=== PATIENT | male | born 1965 | race Caucasian/White ===

== ENCOUNTER → 2019-12-04 13:53 | Outpatient (BNVA) | payer MEDICARE, MEDICAID, SELFPAY | PROVIDERS: PCP Internal Medicine; Referring Provider Internal Medicine; Visit Provider Anesthesiology | DX: G89.4 Chronic pain syndrome (principal); M96.1 Postlaminectomy syndrome, not elsewhere classified; Z79.891 Long term (current) use of opiate analgesic; Z98.1 Arthrodesis status | CPT/HCPCS: 99214 ==

== ENCOUNTER → 2020-01-09 15:25 | Outpatient (BNVA) | payer MEDICARE, MEDICAID, SELFPAY | PROVIDERS: PCP Internal Medicine; Referring Provider Internal Medicine; Visit Provider Anesthesiology | DX: G89.4 Chronic pain syndrome (principal); M96.1 Postlaminectomy syndrome, not elsewhere classified; Z79.891 Long term (current) use of opiate analgesic | CPT/HCPCS: 99212 ==

== ENCOUNTER → 2020-01-29 13:32 | Outpatient (BNVA) | payer MEDICARE, MEDICAID, SELFPAY | PROVIDERS: PCP Internal Medicine; Referring Provider Internal Medicine; Visit Provider Anesthesiology | DX: M96.1 Postlaminectomy syndrome, not elsewhere classified (principal); G89.4 Chronic pain syndrome; F11.90 Opioid use, unspecified, uncomplicated | CPT/HCPCS: Q3014 ==

== ENCOUNTER → 2020-02-19 13:38 | Outpatient (BNVA) | payer MEDICARE, MEDICAID, SELFPAY | PROVIDERS: PCP Internal Medicine; Visit Provider Anesthesiology | DX: M96.1 Postlaminectomy syndrome, not elsewhere classified (principal); G89.4 Chronic pain syndrome; F11.90 Opioid use, unspecified, uncomplicated | CPT/HCPCS: 99212 ==

== ENCOUNTER → 2020-03-19 14:09 | Outpatient (BNVA) | payer MEDICARE, MEDICAID, SELFPAY | PROVIDERS: PCP Internal Medicine; Visit Provider Anesthesiology | DX: G89.4 Chronic pain syndrome (principal); M96.1 Postlaminectomy syndrome, not elsewhere classified; F11.90 Opioid use, unspecified, uncomplicated; E11.9 Type 2 diabetes mellitus without complications; Z96.41 Presence of insulin pump (external) (internal) | CPT/HCPCS: 99212 ==

== ENCOUNTER → 2020-04-27 17:05 | Outpatient (BNVA) | payer MEDICARE, MEDICAID, SELFPAY | PROVIDERS: PCP Internal Medicine; Visit Provider Anesthesiology | DX: M96.1 Postlaminectomy syndrome, not elsewhere classified (principal); F11.90 Opioid use, unspecified, uncomplicated; G89.4 Chronic pain syndrome | CPT/HCPCS: Q3014 ==

== ENCOUNTER 2020-06-05 07:30 | Day surgery (SDC) | payer MEDICARE, MEDICAID, SELFPAY ==
--- NOTE | 2020-06-04 09:28 | HO.ANESPROP2 ---
Documented by User: Miri Subramanian 06/04/20 09:36 HPI - Anesthesia Eval Consult details Narrative: 54yo M for Intrathecal Drug Delivery Implant PMFSH Active Problems Active Problems: All Active Problems (Updated 04/27/20 @ 17:16 by Gomez Ferrell MD) Chronic, continuous use of opioids (Acute) Chronic pain syndrome (Acute) Past Medical History Medical History Chronic pain syndrome Chronic, continuous use of opioids Cubital tunnel syndrome on right Depression Diabetic neuropathy Fusion of lumbar spine HLD (hyperlipidemia) Hypothyroid Left carpal tunnel syndrome Lumbar post-laminectomy syndrome Type 1 diabetes mellitus Surgical History Surgical History H/O decompression of ulnar nerve H/O exploratory laparotomy H/O parathyroidectomy S/P lumbar fusion Social History Social History Smoking Status: Never smoker Use of substances other than those prescribed or required for medical reasons: No Advance Directives: Yes Advance Directives on File: Yes Advance Directives Date on File: 06/05/20 Meds Allergies Allergy/AdvReac Type Severity Reaction Status Date / Time onions Allergy Severe Vomiting Uncoded 06/05/20 08:19 Home Medications Medication Instructions Recorded Confirmed Last Taken Type blood sugar diagnostic #10 ea 11/30/19 04/27/20 Unknown History insulin aspart U-100 100 unit/mL 0 - 110 unit SUBCUT DAILY 11/30/19 04/27/20 Unknown History subcutaneous solution levothyroxine 200 mcg tablet 0 mcg PO 11/30/19 04/27/20 Unknown History pravastatin 20 mg tablet 20 mg PO DAILY 11/30/19 04/27/20 Unknown History pregabalin 150 mg capsule 150 mg PO TID 11/30/19 04/27/20 Unknown History tizanidine 4 mg tablet 4 mg PO Q8H 11/30/19 04/27/20 Unknown History aspirin 81 mg tablet,delayed 81 mg PO DAILY 12/04/19 04/27/20 05/28/20 20:00 History release lisinopril 1 tab PO DAILY 06/05/20 06/05/20 06/05/20 05:15 History Exam Exam Date and Time: June 04, [id number] Assessment and Plan Assessment Anesthesia Assessment: Chart Reviewed Documented by User: Lucien Conn MD 06/05/20 10:04 [facility] Past Medical History Medical History Chronic pain syndrome Chronic, continuous use of opioids Cubital tunnel syndrome on right Depression Diabetic neuropathy Fusion of lumbar spine HLD (hyperlipidemia) Hypothyroid Left carpal tunnel syndrome Lumbar post-laminectomy syndrome Type 1 diabetes mellitus Surgical History Surgical History H/O decompression of ulnar nerve H/O exploratory laparotomy H/O parathyroidectomy S/P lumbar fusion Social History Social History Smoking Status: Never smoker Use of substances other than those prescribed or required for medical reasons: No Advance Directives: Yes Advance Directives on File: Yes Advance Directives Date on File: 06/05/20 Meds Allergies Allergy/AdvReac Type Severity Reaction Status Date / Time onions Allergy Severe Vomiting Uncoded 06/05/20 08:19 Home Medications Medication Instructions Recorded Confirmed Last Taken Type blood sugar diagnostic #10 ea 11/30/19 04/27/20 Unknown History insulin aspart U-100 100 unit/mL 0 - 110 unit SUBCUT DAILY 11/30/19 04/27/20 Unknown History subcutaneous solution levothyroxine 200 mcg tablet 0 mcg PO 11/30/19 04/27/20 Unknown History pravastatin 20 mg tablet 20 mg PO DAILY 11/30/19 04/27/20 Unknown History pregabalin 150 mg capsule 150 mg PO TID 11/30/19 04/27/20 Unknown History tizanidine 4 mg tablet 4 mg PO Q8H 11/30/19 04/27/20 Unknown History aspirin 81 mg tablet,delayed 81 mg PO DAILY 12/04/19 04/27/20 05/28/20 20:00 History release lisinopril 1 tab PO DAILY 06/05/20 06/05/20 06/05/20 05:15 History Exam Airway Mallampati Class: II TM Dist: >3cm Neck ROM: Full Loose/Missing/Broken Teeth: Yes (All upper and lower teeth are broken, awaiting surgery, none lose per report), Upper and Lower Heart: RRR Lungs: NL Assessment and Plan Assessment Anesthesia Assessment: Anesthesia Plan Discussed Final Anesthetic Review NPO: Yes ASA Class: III Final Preanesthetic Review: No Changes in Pt Med Stat, Meds/Allgs Chart Reviewed, Consent Obtained/Reviewed and Anes Risks/Benef Reviewed Patient Risk: High Procedure Risk: Low Anesthetic Plan Anesthetic Plan: GA Disposition: Standard PACU
[2020-06-05] VITALS (11 sets, daily range): BP systolic 121–183; BP diastolic 70–94; PULSE 78–98; RESP 12–20; TEMP 36.2–36.6; O2SAT 95–100; BMI 39.9
--- NOTE | ~2020-06-05 | FL_ITS ---
EXAMINATION: XR FLUOROSCOPY WITH IMAGES CLINICAL INFORMATION: Intrathecal drug pump implant COMPARISON: None. TECHNIQUE: Fluoroscopy performed by Dr. Gomez Ferrell. Fluoroscopy time: 0.5 minutes DAP: 10.6 Gycm2 Images: 1 FINDINGS: There is a monitoring lead crossing the lower thorax. Degenerative changes are present thoracolumbar spine. A small spot of artifact overlies thoracolumbar vertebral body, known chronic artifact from the equipment. FL/FL guidance in OR IMPRESSION: Fluoroscopy for pain management procedure.
--- NOTE | 2020-06-05 07:23 | W.PM.OPN ---
Operative Note Operative Note Date of Service: 06/05/20 Narrative: After obtaining informed consent and explaining to the patient risks, benefits and alternatives to treat her pain, the patient was brought up to the operating room where she was positioned supine on the stretcher. [place] [employer] monitors were applied and general anesthesia was induced with endotracheal intubation. After that the patient was transferred to the operating table prone. All pressure points protected. The patient received antibiotic cefazolin 3 g intravenously 30 minutes before incision. Time-out was performed delineating correct site and side of the procedure, name and date of of the patient, risk of fire, need for antibiotic prophylaxis risk of DVT and need for DVT prophylaxis. After that the patient entire back was prepped with chloroprep and draped with full body drape including ioban film. Sterilely drape C-arm was brought over the OR field and square pictures of the L1, L2, L3 vertebrae were demonstrated on the screen. the entrance point for the catheter was chosen as the L1-L2 interspace. In 1/2 cm away to the right paramedian fashion 6.5 cm vertical skin incision was made with #10 scalpel. The incision was widened with the Weitlaner retractor and deepened with electrocautery. Thorough hemostasis was obtained using electrocautery and 3-0 polisorb sutures. the prevertebral fascia was freed from overlaying tissues. After that 100 mm introducer spinal 16 g needle was incerted under x-ray guidance in the projection of the right L3 pedicle. The needle advanced under the x-ray guidance with intemitteny A-P and lateral views toward the spinal canal. When on the lateral view the needle entered the spinal canal the stylet was removed and the clear flow of the CSF was obtain through the needle hub. Intrathecal Ascenda catheter was inserted through the needle and advanced under the x-ray guidance toward the T9 vertebral body projection. The stylet was removed from the catheter and the flow of CSF fluid straw colored and clear was observed coming from the catheter.1-0 Tycron Purse-string suture was applied surrounding the a needle and it was tied. After that the needle was withdrawn with care taken to keep the catheter in place. Anchoring device was dislodged on the catheter and advanced until it met prevertebral fascia. It was engaged on the body of the catheter. Two anchoring Tycron sutures were used to suture left wing of the anchor to prevertebral fascia and 1 anchoring suture was used to stitch in the right wing of anchoring device to prevertebral fascia. After that the thorough irrigation of the wound was performed and wound was packed with vancomycin soaked 4 x 4. Attention then was concentrated on the patient's right buttock. Sterilely draped C-arm was brought over the operative field again and position of the patient's iliac crest on the RIGHT was demonstrated on the screen. Three cm below the projection of the iliac crest to the skin of the local anesthetic bupivacaine mixture with lidocaine 1-1 was injected in the linear horizontal fashion. After that 9.5 cm incision was performed in patient's right buttock alongside the injected line. Thorough hemostasis was obtained using cautery device. After that the wound was widened and made 2.5 cm deep . The wound was extended medially and laterally as well as caudally and cranially to form the space to accommodate the body of the pump. Thorough hemostasis was performed. The wound was irrigated with vancomycin containing normal saline and then tunneling device was used to connect both wounds and dislodged the intrathecal catheter into the side wound. The catheter was trimmed appropriately after that and sutureless connection device was mounted on the catheter. After that sutureless connection device was connected to the pump. Aspiration of the side port of the pump revealed clear flow of CSF. Three 1-0 Tycron sutures were applied in most SUPERIOR MEDIAL AND SUPERIOR LATERAL CORNERS OF THE WOUND as well as most inferior medial corner of the wound. After that the sutures were connected to the bracket is on the body of the pump, intrathecal catheter was gathered behind the body of the pump and pump was dislodged into the wound. After that the anchoring sutures were tied. Thorough irrigation was performed again in both wounds. Thorough hemostasis was verified. 0 polisorb sutures were used to close both wounds, 2-0 suture of the same nature were used to approximate the skin. [place] were applied to the skin line and Bacitracin ointment was applied to the staple lines. Sterile dressing with sterile 4x4s was performed, abdominal binder was applied. Upon completion of the procedure patient was awaken extubated and taken outside of the operating room to recovery room where SHE recovered uneventfully. HE went home without immediate complications.
--- NOTE | 2020-06-05 07:23 | PM.OP ---
Brief Operative Note Date of Service: 06/05/20 Pre-op diagnosis: Postlaminectomy syndrome. Post-op diagnosis: same Procedure: Implantation of intrathecal drug delivery system pain pump [employer] Implants: Ascenda intrathecal catheter and SynchroMed II intrathecal pain pump Surgeon: Gomez Ferrell MD Anesthesia: GETA Estimated blood loss (mL): 15 Pathology: none sent Condition: stable Disposition: PACU
--- NOTE | 2020-06-05 07:24 | MHC.SHP ---
Pre-Procedural Eval Section B Chief Complaint: lumbar post-laminectomy syndrome Details of Present Illness: as above Relevant Family History (Specify if Yes): No Relevant Social History: None Present Medications: None Medical History: No relevant PMH History of Previous Operations: Relevant previous surgery/procedure and date(s) Allergies: Allergies Allergy/AdvReac Type Severity Reaction Status Date / Time onions Allergy Unknown unknown Uncoded 11/30/19 11:43 Review of Systems Sugical H&P ROS: Negative: Constitution, Cardiovascular, Respiratory, Neurological, Psychiatric, Hem-Onc, Allergic/Immunologic, Gastrointestinal, Genitourinary, Musculoskeletal, Integumentary, Endocrine and Eyes/Ears/Nose/Throat Exam Surgical H&P Exam: Normal: HEENT, Normal: Heart, Normal: Lungs, Normal: Extremities, Normal: Abdomen, Normal: Skin and Normal: Neurological Plan Diagnosis/Plan: Unchanged I have reviewed the history and physical and performed a pertinent physical examination on my patient. No changes have occurred unless specified.
[2020-06-05 08:12] LABS: Glucose, Whole Blood 106 mg/dL (60-115)
[2020-06-05] MEDS: Lactated Ringers 1,000 ML 100 ML IVCONT (08:41)
--- NOTE | 2020-06-05 10:54 | PC.NURSE ---
Dr. Capellan bedside informed pt has [employer] insulin pump. pt instructed to cap at this time. ([id number]). pump placed with pts belongings
[2020-06-05] MEDS: oxyCODONE HCl Immed Release 5 MG TABLET 10 MG PO (13:55)
[2020-06-05] MEDS: Acetaminophen 325 MG TABLET 650 MG PO (13:55)
[2020-06-05] MEDS: Ketorolac Tromethamine 15 MG/ML VIAL IVPUSH (13:58)
[2020-06-05] MEDS: fentaNYL citrate/PF 100 MCG/2 ML VIAL 50 MCG IVPUSH ×3 (13:58→15:19)
== END 2020-06-05 16:26 ==
LOC: HO.SSS 07:31
PROVIDERS: PCP Internal Medicine; Visit Provider Anesthesiology
PROC: (CPT 62362; principal; 2020-06-05 09:30)
DX: M96.1 Postlaminectomy syndrome, not elsewhere classified (principal); G89.4 Chronic pain syndrome; E10.9 Type 1 diabetes mellitus without complications; Z98.1 Arthrodesis status
CPT/HCPCS: 62362; 82947; C1755; C1772; J0690; J1100; J1170; J1885; J2250; J2370; J2405; J3010; J3370

== ENCOUNTER 2020-06-12 17:59 | Inpatient (IN) | payer MEDICARE, MEDICAID, SELFPAY ==
[2020-06-12] VITALS (7 sets, daily range): BP systolic 110–146; BP diastolic 45–71; PULSE 85–95; RESP 13–19; TEMP 36.4; O2SAT 95–99; BMI 37.0
--- NOTE | ~2020-06-12 | MR_ITS ---
EXAMINATION: MR THORACIC SPINE WITHOUT AND WITH CONTRAST MR LUMBAR SPINE WITHOUT AND WITH CONTRAST CLINICAL INFORMATION: Enterococcus bacteremia. Evaluation for abscess. COMPARISON: None available. TECHNIQUE: MRI of the thoracic and lumbar spine was obtained using routine sequences without and following the administration of 10 mL of Gadavist intravenous contrast. FINDINGS: Thoracic Spine: Normal anatomic alignment. Moderate degenerative disc disease from T6-T12 associated mixed Modic type discogenic endplate changes including minimal Modic type I discogenic edema at T11-T12. No suspicious marrow edema. Schmorl's loss at T7-T8 and from T10-L1. Otherwise, the vertebral body heights are largely maintained. No significant abnormalities of the thoracic spinal cord. No epidural collection. No abnormal contrast enhancement. No significant abnormalities of the paraspinal musculature. Limited evaluation of the intrathoracic structures without significant abnormalities. The descending thoracic aorta is of normal contour and caliber. AXIAL SPINAL LEVELS: Small posterior disc herniations at T2-T3, T5-T6, T10-T11, T11-T12, and T12-L1. There is mild multilevel facet joint arthropathy, most notably in the lower thoracic spine. There is no neural foraminal stenosis. There is no spinal canal stenosis. Lumbar Spine: Instrumented posterior fusion of L3-L4 with bilateral paired interpedicular screws. Intravertebral hardware at L4-L5 and L5-S1. Normal anatomic alignment. Moderate degenerative disc disease from T12-L3. Associated mixed Modic type discogenic endplate changes including mild Modic type I discogenic edema at T12-L1. No additional suspicious marrow edema. Schmorl's nodes from T12-L3. Otherwise, the vertebral body heights are well-maintained. The conus medullaris terminates at the level of T12-L1. The distal spinal cord is normal in appearance. No abnormal contrast enhancement. No demonstrated epidural collection. Postsurgical changes of the back from L2-S1. Moderate subcutaneous edema within the soft tissues of low back from L1-S2. No discrete fluid collection. No suspicious enhancement. No additional significant abnormalities of the paraspinal musculature. Limited evaluation of the intra-abdominal structures without significant abnormalities. The abdominal aorta is of normal contour and caliber. AXIAL SPINAL LEVELS: L1-L2: Moderate diffuse disc bulge. There is moderate bilateral facet joint arthropathy. There is mild right and no left neural foraminal stenosis. There is mild spinal canal stenosis. L2-L3: Mild diffuse disc bulge. There is moderate bilateral facet joint arthropathy. There is mild bilateral neural foraminal stenosis. There is narrowing of the subarticular zones with no overt spinal canal stenosis centrally. L3-L4: Fused at this level. Posterior decompression. There is no neural foraminal stenosis. There is no spinal canal stenosis. L4-L5: Fused at this level. There is mild bilateral facet joint arthropathy. There is mild bilateral neural foraminal stenosis. There is no spinal canal stenosis. L5-S1: Fused at this level. Disc protrusions/posterior osseous ridging extending into the right foraminal zone. There is moderate bilateral facet joint arthropathy. There is moderate right and mild left neural foraminal stenosis. There is no spinal canal stenosis. MR/MR thoracic spine wo/w con IMPRESSION: 1. No suspicious marrow edema or enhancement. No demonstrated epidural or paraspinal collection. 2. Mild to moderate multilevel degenerative spondyloarthropathy of the thoracic spine as described in detail above. No overt thoracic spinal canal stenosis or nerve root compression. 3. Moderate multilevel degenerative spondyloarthropathy of the lumbar spine as described in detail above. Most notably, there is mild spinal canal stenosis at L1-L2. Narrowing of the subarticular zones at L2-L3. Moderate right-sided neural foraminal stenosis at L5-S1.
--- NOTE | ~2020-06-12 | FL_ITS ---
EXAMINATION: XR FLUOROSCOPY WITH IMAGES CLINICAL INFORMATION: Pain management exam. COMPARISON: MR thoracic and lumbar spine 06/16/2020, Chest radiograph 06/12/2020 TECHNIQUE: Fluoroscopy performed by Dr. Gomez Ferrell. Fluoroscopy time: 0.7 minutes DAP: 5.89 Gycm2 Images: 3 FINDINGS: The frontal fluoroscopic spot views show catheter or guidewire overlying the spinal canal with tip lower thoracic spine. There are multilevel degenerative changes with disc narrowing and vertebral spurring. Lateral view shows electronic device overlying the patient. FL/FL guidance in OR IMPRESSION: Fluoroscopy for pain management procedure.
--- NOTE | ~2020-06-12 | XR_ITS ---
EXAMINATION: CHEST 1 VIEW CLINICAL INFORMATION: Cough. Elevated white blood cell count. COMPARISON: None. TECHNIQUE: An AP view of the chest is provided. FINDINGS: The cardiac silhouette is not enlarged. The mediastinal and hilar contours are unremarkable. There are neither pleural effusions nor pneumothoraces. There is mild streaky opacification at the right lung base. The osseous structures are unremarkable. XR/XR chest 1V IMPRESSION: Mild streaky opacification at the right lung base which could correspond to atelectasis, though a developing infiltrate cannot be excluded. Recommendation is for a followup chest series to be obtained following treatment and/or resolution of symptoms to assure resolution of this appearance.
[2020-06-12 18:09] LABS: Glucose, Whole Blood 168 mg/dL (60-115)
[2020-06-12] MEDS: Bacitracin Oint 0.9 GM PACKET 1 APPL TOPICAL (18:30)
[2020-06-12 19:20] LABS: Glucose, Whole Blood 257 mg/dL (60-115)
--- NOTE | 2020-06-12 19:22 | PC.NURSE ---
Patient arrived to unit around 1744 as a transfer from [facility]. Patient A&Ox3 , answering questions appropriately but slow and vague. VSS. Neuros intact. LS clear, on 2L NC. SR on tele. BSx4. Remains NPO from [facility]. Dowell in place from [facility], 18F draining yellow urine. Last BM reported yesterday. Surgical incision site to lower back midline. Incision site well approximated, no drainage or redness. 6 jia intact. Second incision site to right back/flank below previous incision, also well approximated, no redness or drainage. Dr.Yuri Ferrell at bedside to evaluate intrathecal dilaudid pain pump incision site and pump function in which he placed around 05/28/20 per [facility] RN to RN report. Per ordered and applied bacitracin ointment and new DSD to both incision sites. Instructed to leave dressing until Monday. Per Dr. Ferrell, plan to take patient to the OR on Monday to evaluate pump. Dr. Ferrell to call to update. Arterial line from [facility] in left radial artery. Per use for lab draw and then removed. Reported to PA and miles RANDOLPH. Patient being treated previously for DKA at [facility], not on insulin drip on arrival to unit. POC 168. Reported to Dr. Lim. Order for POC recheck in 2 hours. Requested Lab reports from [facility], received and given to NICO. NICO to order labs. Waiting for blood culture reports from [facility], Dr. Lim and PA aware. Report given to miles RANDOLPH.
--- NOTE | 2020-06-12 19:29 | P.HPCC_ITS ---
History of Present Illness Date of Service: 06/12/20 HPI: 54-year-old insulin-dependent diabetic type 1 who normally uses an external insulin pump which recently malfunction. He is status post lumbar spinal fusion and has chronic back pain. One week ago he had and intrathecal opiate pump placed by Dr Ferrell. He also has a history of pancreatitis status post partial pancreatectomy, diabetic neuropathy and nephropathy, hypertension, hyperlipidemia, depression, hypothyroidism. He presented to [facility] yesterday, with altered mental status. He had a postop appointment yesterday but did not make it to it. He apparently had been having nausea and vomiting since the day of surgery (06/05/2020). Apparently he had been prescribed postop antibiotics but he had only taking it 1 day. During their workup, at [facility] the patient was hypotensive with blood pressure 74/44, [place]febrile[place] [address], creatinine of 4.6, sodium of 131, potassium 5.4, anion gap of 46, bicarb of 8, lactic acid 3.5, glucose of 06/14/2041 and lipase of 1139. Patient received IV fluid, was placed on an insulin drip, due to the presumption of systemic inflammatory response syndrome although no clear site of infection was detected, he was given vancomycin and Zosyn. According to the discharge summary, the patient had preliminary blood cultures that were positive for Gram-positive cocci and had received vancomycin up until last night at 9 p.m. ; patient has had head CT, CT abdomen pelvis CT, chest x-ray all of which were unremarkable and there was no evidence of acute pathology. The patient had shown signs of opioid overdose for he had pinpoint fix pupils and drowsiness, Narcan x 3 doses had being given and this was apparently successful on reversing some of the patient's clinical presentation, he became more awake, answered questions appropiately. Given the inability to manage the intrathecal Dilaudid pump, the patient was transferred to this hospital. Just before the transfer, it seemed that his DKA was resolved and the insulin pump was discontinued. Apparently the patient was seen by Dr. Ferrell this afternoon and so far he did not think that the pump was an issue; however the patient may be taken to the OR early next week. Currently patient feels well, denies any complaints other than being thirsty and having a dry mouth. Admits to mild cough without sputum production shortness of breath. ROS: Denies headache, no visual changes, lightheadedness or dizziness, no history of seizures or strokes, no history of eye or ear problems, no sore throat, denies chest pain, palpitations, no coronary disease, pulmonary disease, no hemoptysis, abdominal pain, denies any melena, hematochezia, liver or kidney problems, no dysuria, hematuria, no leg swelling, no history of DVT or PE. She has no travel and has not been contact with anybody with COVID. All other review of systems negative. Past Medical History: As above Kidney stones with current nonobstructive stone in the midpole of the right kidney unchanged from 2018 Past Surgical History: Parathyroidectomy Pancreatectomy Laminectomy with L4-L5 and L5-S1 cages and pedicle screws inter connecting rods noted at L3-L4. Intrathecal pain pump at approximately L2 Family history: Noncontributory Social History: Lives at home with children, does not use any assistive devices, denies alcohol, drugs or tobacco ever. CODE STATUS: Full code Allergies: No known drug allergies, allergic to onions causes vomiting Home Medications: Please see med rec PHYSICAL EXAM: VS: 144/60, 95, 17, 95% on room air. ?General: Alert oriented x3 no acute distress. Speaking full sentences. Speech is well articulated, thought process is coherent. Following all commands. ?Skin: Intact, with exception of recent surgical low back scar well approximated with jia time 6, clean, dry, intact without erythema or discharge. A line noted in the left upper extremity. ?HEENT: Head is normocephalic, atraumatic, pupils equal round reactive to light accommodation bilaterally. Extraocular movements appear intact. Buccal mucosa is dry, Neck is supple without lymphadenopathy. ?Cardiac: Clear S1-S2, no murmurs rubs or gallops. ?Pulmonary: Clear to auscultation, no wheezes, rales or rhonchi. ?Abdomen: Protuberant, positive bowel sounds in all 4 quadrants. Soft, nontender, no rebound or guarding. ?Musculoskeletal: Moving all 4 extremities upon request a major joints, there is no crepitus or tenderness. The strength is 5/5 bilaterally and throughout all 4 extremities. Gait not assessed at this point. ?Neurologic: As above, cranial nerves 2-12 are grossly intact. No focal deficits noted.Motor strength as above. ?Vascular: 2+ pulses upper and lower extremities distally. Less than 2nd capi llary refill ? SIGNIFICANT LABORATORY DATA: As above REVIEW OF IMAGES: NEW CXR IMPRESSION: Mild streaky opacification at the right lung base which could correspond to atelectasis, though a developing infiltrate cannot be excluded. Recommendation is for a followup chest series to be obtained following treatment and/or resolution of symptoms to assure resolution of this appearance. EKG REVIEW: Not available ASSESSMENT AND PLAN: 1. Status post DKA 2. Hyperglycemia 3. Hypernatremia due to volume depletion 4. Acute kidney injury with BUN to creatinine E ratio more than 40 likely due to volume depletion 5. Elevated lipase (asymptomatic for pancreatitis) 6. Status post metabolic versus toxic encephalopathy in the setting of suspected underlying DKA and opioid pump administration 7. Questionable bacteremia versus contaminated blood cultures but without active signs of sepsis 8. ? Right lung PNA 9. Acute hypophosphatemia Admit to the ICU, however the patient is no longer in DKA; he is not in septic shock or simply septic. He does show evidence of hyperglycemia which can be ea sily treated with Lantus insulin and short-acting insulin he. Patient appears volume depleted, I will start him on half-normal saline, repeat laboratories. I have order 1 dose of vancomycin and will follow up on blood cultures which according to [facility] they do not have a final result and they do not know where the preliminary result of Gram-positive cocci came from. However given the questionable infiltrate of the right lung and the above, will continue with vancomycin and Zosyn renally adjusted doses. Will order phosphorus replacement laboratories in the morning. Will repeat Blood Cultures here. Home medication list obtained and will resume those necessary. I will ordered to discontinue the arterial line. Case discussed with Dr Armstrong (hospitalist) pt transferred to , currently the patient does not need critical care anymore. GI PROPHYLAXIS: IV ppi DVT PROPHYLAXIS: Pneumatic stockings and early ambulation Critical care time used for critical evaluation of this patient, diagnosis, treatment and coordination of care, review her records and documentation TOTAL CRITICAL CARE TIME 120 MIN . Patient's care was discussed in detail with Dr. Lim. He is aware of all the above as well as the plan of care for this patient. [facility] Past Medical History Medical History (Updated 06/13/20 @ 14:07 by Paloma Hutton MD) Chronic pain syndrome Chronic, continuous use of opioids Cubital tunnel syndrome on right Depression Diabetic neuropathy Fusion of lumbar spine HLD (hyperlipidemia) Hypothyroid Left carpal tunnel syndrome Lumbar post-laminectomy syndrome Type 1 diabetes mellitus Surgical History Surgical History H/O decompression of ulnar nerve H/O exploratory laparotomy H/O parathyroidectomy S/P lumbar fusion Social History Social History Household Members: Family Household Members Other:: Son, Daughter in law, 4 grandchildren Housing: House Do you presently have visiting nurse or other home services: No Smoking Status: Never smoker Second Hand Smoke Exposure: No Use of substances other than those prescribed or required for medical reasons: No Currently Displaying Signs/Symptoms of Drug Intoxication Withdrawal: No Have you been hit, kicked, punched, or otherwise hurt by someone within the past year? If so, by whom?: No Do you feel safe in your current relationship?: Yes Is there a partner from a previous relationship who is making you feel unsafe now?: No Are you made to feel afraid or neglected: No Advance Directives: Yes Advance Directives on File: Yes Advance Directives Date on File: 06/05/20 Do you have thoughts of harming others: None Do you have a plan to hurt others: No Plan Recently lost weight without trying: No Meds Allergies Allergy/AdvReac Type Severity Reaction Status Date / Time onions Allergy Severe Vomiting Uncoded 06/05/20 08:19 Home Medications Medication Instructions Recorded Confirmed Last Taken Type blood sugar diagnostic #10 ea 11/30/19 04/27/20 Unknown History insulin aspart U-100 100 unit/mL 0 - 110 unit SUBCUT DAILY 11/30/19 06/12/20 Unknown History subcutaneous solution levothyroxine 200 mcg tablet 0 mcg PO 11/30/19 04/27/20 Unknown History pravastatin 20 mg tablet 20 mg PO DAILY 11/30/19 06/12/20 Unknown History pregabalin 150 mg capsule 150 mg PO TID 11/30/19 06/12/20 Unknown History tizanidine 4 mg tablet 4 mg PO Q8H 11/30/19 06/12/20 Unknown History aspirin 81 mg tablet,delayed 81 mg PO DAILY 12/04/19 06/12/20 05/28/20 20:00 History release lisinopril 1 tab PO DAILY 06/05/20 06/12/20 06/05/20 05:15 History Physical Exam Vital Signs: Vital Signs: Last Vital Signs Temp 97.6 F 06/12/20 19:00 Pulse 95 06/12/20 19:00 Resp 14 06/12/20 19:00 BP 110/45 L 06/12/20 19:00 Pulse Ox 97 06/12/20 19:00 Results Labs CBC and Chem 7: 06/13/20 00:55 06/13/20 12:39 Labs: Laboratory Results - last 24 hr 06/12/20 06/12/20 18:05 19:14 POC Glucose 168 H 257 H
[2020-06-12 19:48] LABS: Basophils Percent Auto 0.1 % (0-2); Eosinophils Percent Auto 0.1 % (0-4); Hematocrit 31.8 % (42-52); Hemoglobin 10.9 g/dl (14.0-18.0); Imm Gran Abs Auto 0.04 X10*3/uL (0.00-0.03); Imm Gran Pct Auto 0.4 % (0.0-0.4); Lymphocytes Absolute Auto 0.6 X10*3/uL (1.2-4.9); Lymphocytes Percent Auto 5.4 % (20-40); MANUAL DIFF FLAG SCAN; Mean Corpuscular HGB Conc 34.3 g/dl (31.0-36.0); Mean Corpuscular Hemoglobin 30.9 pg (27.0-33.0); Mean Corpuscular Volume 90.1 fL (80-98); Mean Platelet Volume 9.1 fL (9.4-12.4); Monocytes Absolute Auto 0.6 X10*3/uL (0.1-1.2); Monocytes Percent Auto 5.4 % (2-11); Neutrophils Absolute Auto 9.8 X10*3/uL (2.0-8.3); Neutrophils Percent Auto 88.6 % (45-73); Platelet Count 117 X10*3/uL (160-400); Red Blood Count 3.53 X10*6/uL (4.60-5.80); Red Cell Distribution Width 13.4 % (11.0-16.0); SCAN SMEAR FLAG 1
[2020-06-12 20:08] LABS: SLIDE REVIEW VERIFIED
[2020-06-12 20:50] LABS: Alanine Aminotransferase 20 U/L (0-40); Albumin Level 3.4 g/dL (3.5-5.0); Alkaline Phosphatase 135 U/L (39-117); Anion Gap 17 (12-20); Aspartate Amino Transferase 26 U/L (5-37); Bilirubin Total 0.4 mg/dL (0.0-1.0); Blood Urea Nitrogen 80 mg/dL (9-16); Calcium 8.3 mg/dL (8.4-10.2); Carbon Dioxide 26 mmol/L (22-29); Chloride 112 mmol/L (96-108); Creatinine Clr Calc Pharmacy 46.1; Estimated Glomerular Filt Rate 31; Glucose Random 367 mg/dL (60-115); Sodium 150 mmol/L (135-145); Total Protein 5.6 g/dL (6.5-8.0)
[2020-06-12 21:05] LABS: Glucose, Whole Blood 359 mg/dL (60-115)
[2020-06-12 21:06] LABS: Lipase 292 U/L (8-78)
[2020-06-12] MEDS: Insulin Lispro 100 UNIT/ML 3 ML VIAL SUBCUT (21:41)
[2020-06-12] MEDS: Insulin Glargine,Hum.rec.anlog 100 UNIT/ML 10 ML VIAL 30 UNIT SUBCUT (21:41)
[2020-06-12] MEDS: Sodium Chloride 0.45 % 1,000 ML 100 ML IVCONT (21:42)
[2020-06-12 21:49] LABS: Magnesium 2.8 mg/dL (1.6-2.6); Phosphorus 2.1 mg/dL (2.7-4.5)
[2020-06-12] MEDS: vancomycin HCL 1,000 MG in 0.9 % Sodium Chloride 250 ML 270 MG IV (22:44)
[2020-06-12 22:50] LABS: Glucose, Whole Blood 382 mg/dL (60-115)
[2020-06-12] MEDS: Sodium,Potassium Phosphates POWD.PACK 2 PACKET PO (23:32)
[2020-06-12] MEDS: Piperacillin Sodium/Tazobactam 3.375 GM in 0.9 % Sodium Chloride 50 ML IV (23:32)
[2020-06-13] VITALS (8 sets, daily range): BP systolic 129–184; BP diastolic 57–92; PULSE 81–89; RESP 17–19; TEMP 36.4–37.3; O2SAT 92–97; BMI 36.4
[2020-06-13 01:02] LABS: Eosinophils Percent Auto 0.1 % (0-4); Hematocrit 32.7 % (42-52); Hemoglobin 11.4 g/dl (14.0-18.0); Imm Gran Abs Auto 0.04 X10*3/uL (0.00-0.03); Imm Gran Pct Auto 0.4 % (0.0-0.4); Lymphocytes Absolute Auto 0.6 X10*3/uL (1.2-4.9); Lymphocytes Percent Auto 5.8 % (20-40); MANUAL DIFF FLAG SCAN; Mean Corpuscular HGB Conc 34.9 g/dl (31.0-36.0); Mean Corpuscular Hemoglobin 31.5 pg (27.0-33.0); Mean Corpuscular Volume 90.3 fL (80-98); Monocytes Absolute Auto 0.4 X10*3/uL (0.1-1.2); Monocytes Percent Auto 4.2 % (2-11); Neutrophils Absolute Auto 9.3 X10*3/uL (2.0-8.3); Neutrophils Percent Auto 89.5 % (45-73); Platelet Count 128 X10*3/uL (160-400); Red Blood Count 3.62 X10*6/uL (4.60-5.80); Red Cell Distribution Width 13.3 % (11.0-16.0); SCAN SMEAR FLAG 1; White Blood Count 10.4 X10*3/uL (4.8-10.8)
[2020-06-13 01:28] LABS: Anion Gap 17 (12-20); Blood Urea Nitrogen 75 mg/dL (9-16); Calcium 8.7 mg/dL (8.4-10.2); Carbon Dioxide 27 mmol/L (22-29); Chloride 112 mmol/L (96-108); Creatinine Clr Calc Pharmacy 48.3; Estimated Glomerular Filt Rate 32; Glucose Random 431 mg/dL (60-115); Potassium 4.8 mmol/L (3.3-5.1); Sodium 151 mmol/L (135-145)
[2020-06-13 01:36] LABS: Lactic Acid 0.8 mmol/L (0.5-2.0)
[2020-06-13] MEDS: Insulin Lispro 100 UNIT/ML 3 ML VIAL SUBCUT ×5 (01:49→21:26)
[2020-06-13] MEDS: Piperacillin Sodium/Tazobactam 3.375 GM in 0.9 % Sodium Chloride 50 ML IV ×4 (04:35→22:49)
[2020-06-13] MEDS: Pantoprazole Sodium 40 MG/10 ML VIAL IVPUSH (05:42)
[2020-06-13 08:16] LABS: Glucose, Whole Blood 344 mg/dL (60-115)
[2020-06-13] MEDS: Pravastatin Sodium 20 MG TABLET PO (08:40)
[2020-06-13] MEDS: Insulin Glargine,Hum.rec.anlog 100 UNIT/ML 10 ML VIAL 30 UNIT SUBCUT ×2 (08:40→21:25)
[2020-06-13] MEDS: Pregabalin 150 MG CAPSULE PO ×3 (08:40→21:24)
[2020-06-13] MEDS: Aspirin Enteric Coated 81 MG TABLET.DR PO (08:40)
[2020-06-13] MEDS: Sodium Chloride 0.45 % 1,000 ML 100 ML IVCONT ×2 (08:46→19:50)
[2020-06-13 12:43] LABS: Glucose, Whole Blood 369 mg/dL (60-115)
[2020-06-13 13:16] LABS: Estimated Average Glucose 235 mg/dL; Hemoglobin A1c % 9.8 %
[2020-06-13 13:50] LABS: Anion Gap 18 (12-20); Blood Urea Nitrogen 62 mg/dL (9-16); Calcium 8.3 mg/dL (8.4-10.2); Carbon Dioxide 25 mmol/L (22-29); Chloride 112 mmol/L (96-108); Creatinine Clr Calc Pharmacy 56.8; Estimated Glomerular Filt Rate 39; Glucose Random 387 mg/dL (60-115); Magnesium 2.9 mg/dL (1.6-2.6); Phosphorus 1.7 mg/dL (2.7-4.5); Potassium 4.3 mmol/L (3.3-5.1); Sodium 151 mmol/L (135-145)
--- NOTE | 2020-06-13 14:07 | HO.PM.IMPN ---
Subjective Subjective Date of Service: 06/13/20 Interval History: 07/06 back pain insulin pump has not been working no fever, chest pain, or dyspnea Physical Exam Vital Signs: Vital Signs: Last Vital Signs Temp 97.9 F 06/13/20 12:00 Pulse 84 06/13/20 12:00 Resp 18 06/13/20 12:00 BP 138/82 06/13/20 12:00 Pulse Ox 97 06/13/20 12:00 Body Mass Index 36.4 Gen: in no acute distress HEENT: sclera anicteric, moist mucus membranes Neck: supple Lungs: clear to auscultation bilaterally Heart: regular rate and rhythm, no murmurs Abd: soft, non-tender, non-distended Ext: no edema Skin: warm/well-perfused, surgical scar on back clean/dry/intact Neuro: alert and oriented x3, no focal findings Psych: appropriate affect Objective Data Current Medications Generic Name Dose Route Start Last Admin Trade Name Freq PRN Reason Stop Dose Admin Aspirin 81 mg 06/13/20 09:00 06/13/20 08:40 Aspirin Enteric Coated 81 Mg Tablet.Dr PO 81 mg DAILY EDWARD Administration Sodium Chloride 1,000 mls @ 100 mls/hr 06/12/20 21:15 06/13/20 08:46 IVCONT 100 mls/hr .Q10H [facility] Administration Vancomycin HCl 1,000 mg/ 270 mls @ 270 mls/hr 06/13/20 22:00 Sodium Chloride IV Q24H EDWARD Piperacillin Sod/Tazobactam 50 mls @ 100 mls/hr 06/12/20 23:00 06/13/20 12:05 Sod 3.375 gm/ Sodium Chloride IV Infused Q6H [facility]WARD Infusion Insulin Glargine 30 unit 06/12/20 21:00 06/13/20 08:40 Insulin Glargine,Hum.Rec.Anlog 100 Unit/Ml 10 Ml Vial SUBCUT 30 unit Q12H [facility] Administration Insulin Human Lispro 0 unit 06/13/20 13:00 06/13/20 12:57 Insulin Lispro 100 Unit/Ml 3 Ml Vial SUBCUT 10 unit QIDACHS [facility] Administration Protocol Pantoprazole Sodium 40 mg 06/13/20 06:30 06/13/20 05:42 Pantoprazole Sodium 40 Mg/10 Ml Vial IVPUSH 40 mg DAILY@0630 [facility] Administration Pharmacy Consult 1 each 06/12/20 21:56 Consult Rx Vancomycin Dosing MISCELLANE DAILY PRN Consult order Pravastatin Sodium 20 mg 06/13/20 09:00 06/13/20 08:40 Pravastatin Sodium 20 Mg Tablet PO 20 mg DAILY EDWARD Administration Pregabalin 150 mg 06/13/20 09:00 06/13/20 08:40 Pregabalin 150 Mg Capsule PO 150 mg TID EDWARD Administration Labs CBC & Chem 7: 06/13/20 00:55 06/13/20 12:39 Labs: Laboratory Results - last 24 hr 06/12/20 06/12/20 06/12/20 18:05 19:14 19:40 WBC 11.0 H RBC 3.53 L Hgb 10.9 L Hct 31.8 L MCV 90.1 MCH 30.9 MCHC 34.3 RDW 13.4 Plt Count 117 L MPV 9.1 L Immature Gran % (Auto) 0.4 Neut % (Auto) 88.6 H Lymph % (Auto) 5.4 L Jackson % (Auto) 5.4 Eos % (Auto) 0.1 Baso % (Auto) 0.1 Lymph # (Auto) 0.6 L Jackson # (Auto) 0.6 Eos # (Auto) 0.0 Baso # (Auto) 0.0 Abs Immat Gran (auto) 0.04 H Absolute Neuts (auto) 9.8 H Absolute Nucleated RBC 0.000 Nucleated RBC % (auto) 0.0 Smear Tech's Comments VERIFIED Sodium Potassium Chloride Carbon Dioxide Anion Gap BUN Creatinine Estim Creat Clear Calc Estimated GFR POC Glucose 168 H 257 H Random Glucose Estimat Average Glucose Hemoglobin A1c % Lactic Acid Calcium Phosphorus Magnesium Total Bilirubin AST ALT Alkaline Phosphatase C-Reactive Protein Total Protein Albumin Lipase Procalcitonin 06/12/20 06/12/20 06/12/20 19:40 21:01 22:45 WBC RBC Hgb Hct MCV MCH MCHC RDW Plt Count MPV Immature Gran % (Auto) Neut % (Auto) Lymph % (Auto) Jackson % (Auto) Eos % (Auto) Baso % (Auto) Lymph # (Auto) Jackson # (Auto) Eos # (Auto) Baso # (Auto) Abs Immat Gran (auto) Absolute Neuts (auto) Absolute Nucleated RBC Nucleated RBC % (auto) Smear Tech's Comments Sodium 150 H Potassium 5.0 Chloride 112 H Carbon Dioxide 26 Anion Gap 17 BUN 80 H* Creatinine 2.22 H Estim Creat Clear Calc 46.1 Estimated GFR 31 POC Glucose 359 H* 382 H* Random Glucose 367 H* Estimat Average Glucose Hemoglobin A1c % Lactic Acid Calcium 8.3 L Phosphorus 2.1 L Magnesium 2.8 H Total Bilirubin 0.4 AST 26 ALT 20 Alkaline Phosphatase 135 H C-Reactive Protein 4.60 H Total Protein 5.6 L Albumin 3.4 L Lipase 292 H Procalcitonin 06/13/20 06/13/20 06/13/20 00:55 00:55 00:55 WBC 10.4 RBC 3.62 L Hgb 11.4 L Hct 32.7 L MCV 90.3 MCH 31.5 MCHC 34.9 RDW 13.3 Plt Count 128 L MPV 10.0 Immature Gran % (Auto) 0.4 Neut % (Auto) 89.5 H Lymph % (Auto) 5.8 L Jackson % (Auto) 4.2 Eos % (Auto) 0.1 Baso % (Auto) 0.0 Lymph # (Auto) 0.6 L Jackson # (Auto) 0.4 Eos # (Auto) 0.0 Baso # (Auto) 0.0 Abs Immat Gran (auto) 0.04 H Absolute Neuts (auto) 9.3 H Absolute Nucleated RBC 0.000 Nucleated RBC % (auto) 0.0 Smear Tech's Comments Sodium 151 H Potassium 4.8 Chloride 112 H Carbon Dioxide 27 Anion Gap 17 BUN 75 H Creatinine 2.12 H Estim Creat Clear Calc 48.3 Estimated GFR 32 POC Glucose Random Glucose 431 H* Estimat Average Glucose Hemoglobin A1c % Lactic Acid 0.8 Calcium 8.7 Phosphorus Magnesium Total Bilirubin AST ALT Alkaline Phosphatase C-Reactive Protein Total Protein Albumin Lipase Procalcitonin 06/13/20 06/13/20 06/13/20 08:08 12:36 12:39 WBC RBC Hgb Hct MCV MCH MCHC RDW Plt Count MPV Immature Gran % (Auto) Neut % (Auto) Lymph % (Auto) Jackson % (Auto) Eos % (Auto) Baso % (Auto) Lymph # (Auto) Jackson # (Auto) Eos # (Auto) Baso # (Auto) Abs Immat Gran (auto) Absolute Neuts (auto) Absolute Nucleated RBC Nucleated RBC % (auto) Smear Tech's Comments Sodium Potassium Chloride Carbon Dioxide Anion Gap BUN Creatinine Estim Creat Clear Calc Estimated GFR POC Glucose 344 H 369 H* Random Glucose Estimat Average Glucose 235 Hemoglobin A1c % 9.8 Lactic Acid Calcium Phosphorus Magnesium Total Bilirubin AST ALT Alkaline Phosphatase C-Reactive Protein Total Protein Albumin Lipase Procalcitonin 06/13/20 06/13/20 12:39 12:39 WBC RBC Hgb Hct MCV MCH MCHC RDW Plt Count MPV Immature Gran % (Auto) Neut % (Auto) Lymph % (Auto) Jackson % (Auto) Eos % (Auto) Baso % (Auto) Lymph # (Auto) Jackson # (Auto) Eos # (Auto) Baso # (Auto) Abs Immat Gran (auto) Absolute Neuts (auto) Absolute Nucleated RBC Nucleated RBC % (auto) Smear Tech's Comments Sodium 151 H Potassium 4.3 Chloride 112 H Carbon Dioxide 25 Anion Gap 18 BUN 62 H Creatinine 1.79 H Estim Creat Clear Calc 56.8 Estimated GFR 39 POC Glucose Random Glucose 387 H* Estimat Average Glucose Hemoglobin A1c % Lactic Acid Calcium 8.3 L Phosphorus 1.7 L Magnesium 2.9 H Total Bilirubin AST ALT Alkaline Phosphatase C-Reactive Protein Total Protein Albumin Lipase Procalcitonin 0.20 Impressions Chest X-Ray 06/12/20 20:45 IMPRESSION: Mild streaky opacification at the right lung base which could correspond to atelectasis, though a developing infiltrate cannot be excluded. Recommendation is for a followup chest series to be obtained following treatment and/or resolution of symptoms to assure resolution of this appearance. IMAGING FROM THE [facility] CT Head/Brain W/O Contrast 06/11/2020 17:59 by Dudley Clements MD FINDINGS: Oil Recovery Unit Operator View Findings, Lines and Tubes: None. BRAIN and EXTRA-AXIAL SPACES: No parenchymal hemorrhage, midline shift or mass effect. Smith-white matter differentiation is well preserved. No acute infarct. Ventricles, sulci and basilar cisterns are normal. No white matter lesions. No subarachnoid hemorrhage, subdural or epidural collections. CALVARIUM, SKULL BASE AND SOFT TISSUES: No fractures or suspicious bony lesions. The paranasal sinuses and mastoid air cells are clear. Status-post bilateral lens extraction. The extracranial soft tissues are unremarkable. IMPRESSION: No acute intracranial pathology. CT Abdomen and Pelvis W/O Contrast 06/11/2020 17:59 by Anderson DASH, Tracie I FINDINGS: [employer] Unit Operator View Findings, Lines and Tubes: Spine fusion hardware noted in the lower lumbar spine. Powerpack for spinal catheter noted overlying the right ilium. Visualized Chest: Dependent atelectasis noted in the lung bases. No pericardial or pleural effusion. Diaphragm: Unremarkable. Liver: Evaluation suboptimal because of streak artifact from patient's arms. No visible mass. Gallbladder: No CT evidence of gallbladder pathology. Bile ducts: No biliary ductal dilation. Spleen: Normal. Pancreas: Normal. Adrenal Glands: Normal. Kidneys and Ureters: An 8 mm nonobstructing right mid pole stone is again seen at the cortical medullary junction. Left kidney generally normal. Ureters demonstrate no hydronephrosis or stones. Bladder: Bladder contains a Dowell catheter, otherwise generally normal in appearance. Stomach, Small bowel and Large Bowel: Sliding-type hiatal hernia. Stomach otherwise generally normal. Small bowel generally normal in caliber and distribution without evidence of obstruction. Large bowel demonstrates a few diverticuli without evidence of active diverticulitis. Appendix: Normal. Peritoneum, omentum and mesentery: No ascites or pneumoperitoneum. No omental or mesenteric lesions. Lymph nodes: No pathologically enlarged lymph nodes. Blood vessels: Normal. No aneurysm. Abdominal and pelvic wall: Anterior abdominal wall demonstrates tiny umbilical hernia containing fat. Subcutaneous tissues in the right buttock demonstrating powerpack from spinal unit. There is a line of skin jia in the right paraspinous region superficially, and there are small locules of gas which persist just deep to the jia. Reproductive organs: Unremarkable. Bones: Titanium cages noted at L4-5 and L5-S1. Pedicle screws and interconnecting rods noted at L3-4. Artifact from the metallic hardware hinders evaluation of underlying bone. No definite acute findings in the spine. Wires from the pain pump appear to enter the spine at approximately L2. IMPRESSION: No intra-abdominal collection or evidence of acute intra-abdominal pathology. There is a nonobstructing stone in the midpole the right kidney which is unchanged since 2018. Assessment and Plan (1) Chronic pain syndrome: Status: Acute (2) Bacteremia: Status: Acute (3) Acute kidney failure: Status: Acute (4) Hyperglycemia due to type 2 diabetes mellitus: Status: Acute Assessment and Plan: Hospital d#3 54yo M with DM2 on insulin pump complicated by neuropathy + nephropathy, pancreatitis s/p partial pancreatectomy, HTN, HLD, depression, hypothyroidism, and chronic low back pain s/p lumbar laminectomy and recent (06/05) intrathecal hydromorphone pump placed here at [facility] Presented to [facility] ED 06/11 with lethargy after insulin pump malfunction, nausea and vomiting; took only 1d of prescribed postoperative cephalexin Found to be obtunded and hypotensive, in DKA [glu 1440, AG 46, pH 7.15] and MARVIN [SCr 4.5]; fluid-resuscitated and started on insulin drip Transferred to [facility] ED, ICU consulted and deferred admission given improvement in mental status and labs; patient admitted to [facility], where he got 3 doses of naloxone due to suspected opioid overdose Started on vancomycin + piperacillin/tazobactam for suspected sepsis and 1/2 BCx are now positive for GPCs, suspected Enterococcus by PCR Transferred to [facility] ICU 06/12 or management of the pain pump by Dr Ferrell as no similar service was available at [facility] Stepped down to [facility] 06/13 # Gram positive bacteremia # intrathecal medication pump # possible PNA - 1/2 BCx from [facility] on 06/11 growing GPCs, PCR identified as Enterococcus sp. On vanco + pip/werner d#2. Will follow speciation + sensitivities. Notified Dr Ferrell [Pain Mgmt]. He was planning to check the catheter in the OR 06/16 but the entire pump may need to come out. He interrogated the pump and it was functioning normally and should only be giving 3 mcg/d of hydromorphone. ID consult requested. # hyperNa # MARVIN - improving. continue fluid resuscitation with 1/2NS. hold lisinopril. monitor electrolytes # DM2 with hyperglycemia, A1c 9.8, insulin pump malfunction # DKA, resolving - Lantus + Humalog # hyperlipasemia - suspect due to DKA + MARVIN, not pancreatitis # HLD - continue statin # chronic pain syndrome - continue pregabalin # VTE ppx - SCDs
--- NOTE | 2020-06-13 15:32 | MHC.CM.PN ---
CM ATTEMPTED TO MEET WITH PT WHO WAS SLEEPING. CM TO REVISIT.
[2020-06-13 16:16] LABS: Glucose, Whole Blood 261 mg/dL (60-115)
[2020-06-13 20:06] LABS: Glucose, Whole Blood 247 mg/dL (60-115)
[2020-06-13] MEDS: vancomycin HCL 1,000 MG in 0.9 % Sodium Chloride 250 ML 270 MG IV (21:25)
--- NOTE | 2020-06-13 22:52 | W.PM.IDCN ---
History of Present Illness Data of Consult Service Date: 06/13/20 Primary Care Provider: Unknown Physician HPI Reason for consult: reported bacteremia He presents with nausea and fatigue for a week He is week 3/6 Kefzol for infection He has spinal stimulator has had back surgery PMFSH Past Medical History Medical History Chronic pain syndrome Chronic, continuous use of opioids Cubital tunnel syndrome on right Depression Diabetic neuropathy Fusion of lumbar spine HLD (hyperlipidemia) Hypothyroid Left carpal tunnel syndrome Lumbar post-laminectomy syndrome Type 1 diabetes mellitus Family History Family history: reviewed and not pertinent Surgical History Surgical History H/O decompression of ulnar nerve H/O exploratory laparotomy H/O parathyroidectomy S/P lumbar fusion Social History Social History Household Members: Family Household Members Other:: Son, Daughter in law, 4 grandchildren Housing: House Do you presently have visiting nurse or other home services: No Smoking Status: Never smoker Second Hand Smoke Exposure: No Use of substances other than those prescribed or required for medical reasons: No Currently Displaying Signs/Symptoms of Drug Intoxication Withdrawal: No Have you been hit, kicked, punched, or otherwise hurt by someone within the past year? If so, by whom?: No Do you feel safe in your current relationship?: Yes Is there a partner from a previous relationship who is making you feel unsafe now?: No Are you made to feel afraid or neglected: No Advance Directives: Yes Advance Directives on File: Yes Advance Directives Date on File: 06/05/20 Do you have thoughts of harming others: None Do you have a plan to hurt others: No Plan Recently lost weight without trying: No Meds Allergies Allergy/AdvReac Type Severity Reaction Status Date / Time onions Allergy Severe Vomiting Uncoded 06/05/20 08:19 Active Medications: Current Medications Generic Name Dose Route Start Last Admin Trade Name Freq PRN Reason Stop Dose Admin Aspirin 81 mg 06/13/20 09:00 06/13/20 08:40 Aspirin Enteric Coated 81 Mg Tablet. PO 81 mg DAILY EDWARD Administration Sodium Chloride 1,000 mls @ 100 mls/hr 06/12/20 21:15 06/13/20 19:50 IVCONT 100 mls/hr .Q10H [facility] Administration Vancomycin HCl 1,000 mg/ 270 mls @ 270 mls/hr 06/13/20 22:00 06/13/20 22:41 Sodium Chloride IV Infused Q24H [facility] Infusion Piperacillin Sod/Tazobactam 50 mls @ 100 mls/hr 06/12/20 23:00 06/13/20 17:18 Sod 3.375 gm/ Sodium Chloride IV Infused Q6H [facility] Infusion Insulin Glargine 30 unit 06/12/20 21:00 06/13/20 21:25 Insulin Glargine,Hum.Rec.Anlog 100 Unit/Ml 10 Ml Vial SUBCUT 30 unit Q12H [facility] Administration Insulin Human Lispro 0 unit 06/13/20 13:00 06/13/20 21:26 Insulin Lispro 100 Unit/Ml 3 Ml Vial SUBCUT 6 unit QIDACHS [facility] Administration Protocol Pantoprazole Sodium 40 mg 06/13/20 06:30 06/13/20 05:42 Pantoprazole Sodium 40 Mg/10 Ml Vial IVPUSH 40 mg DAILY@0630 [facility] Administration Pharmacy Consult 1 each 06/12/20 21:56 Consult Rx Vancomycin Dosing MISCELLANE DAILY PRN Consult order Pravastatin Sodium 20 mg 06/13/20 09:00 06/13/20 08:40 Pravastatin Sodium 20 Mg Tablet PO 20 mg DAILY EDWARD Administration Pregabalin 150 mg 06/13/20 09:00 06/13/20 21:24 Pregabalin 150 Mg Capsule PO 150 mg TID EDWARD Administration Home Medications Medication Instructions Recorded Confirmed Last Taken Type blood sugar diagnostic #10 ea 11/30/19 04/27/20 Unknown History insulin aspart U-100 100 unit/mL 0 - 110 unit SUBCUT DAILY 11/30/19 06/12/20 Unknown History subcutaneous solution levothyroxine 200 mcg tablet 0 mcg PO 11/30/19 04/27/20 Unknown History pravastatin 20 mg tablet 20 mg PO DAILY 11/30/19 06/12/20 Unknown History pregabalin 150 mg capsule 150 mg PO TID 11/30/19 06/12/20 Unknown History tizanidine 4 mg tablet 4 mg PO Q8H 11/30/19 06/12/20 Unknown History aspirin 81 mg tablet,delayed 81 mg PO DAILY 12/04/19 06/12/20 05/28/20 20:00 History release lisinopril 1 tab PO DAILY 06/05/20 06/12/20 06/05/20 05:15 History Physical Exam Vital Signs: Vital Signs: Last Vital Signs Temp 99.2 F 06/13/20 19:18 Pulse 84 06/13/20 19:18 Resp 17 06/13/20 19:18 BP 149/92 H 06/13/20 19:18 Pulse Ox 92 06/13/20 19:18 Body Mass Index 36.4 Const: General: cooperative HENMT: Head: Yes normal to inspection Mouth: Normal oral and palatal mucosa present Resp: Effort & Inspection: normal respiratory effort Cardio: Rate: regular rate Rhythm: regular rhythm GI: Palpation (GI): Soft to palpation and nontender Skin: General skin exam: no rashes or lesions noted Extrem: General: Yes normal to inspection Results Labs CBC & Chem 7: 06/13/20 00:55 06/13/20 12:39 Labs: Short CBC 06/13/20 Range/Units 00:55 WBC 10.4 (4.8-10.8) X10*3/uL Hgb 11.4 L (14.0-18.0) g/dl Hct 32.7 L (42-52) % Plt Count 128 L (160-400) X10*3/uL BMP 06/13/20 06/13/20 00:55 12:39 Sodium 151 H 151 H Potassium 4.8 4.3 Chloride 112 H 112 H Carbon Dioxide 27 25 BUN 75 H 62 H Creatinine 2.12 H 1.79 H Calcium 8.7 8.3 L Assessment and Plan (1) Bacteremia: Problem details: He has gram positive cocci Has been on Vancomycin Possibls infection back Status: Acute Await culture blood Continue Kefzol in meantime
[2020-06-14] VITALS (7 sets, daily range): BP systolic 119–152; BP diastolic 63–76; PULSE 76–87; RESP 18–20; TEMP 36.2–37.1; O2SAT 92–96
[2020-06-14] MEDS: Piperacillin Sodium/Tazobactam 3.375 GM in 0.9 % Sodium Chloride 50 ML IV ×3 (04:32→16:23)
[2020-06-14] MEDS: Pantoprazole Sodium 40 MG/10 ML VIAL IVPUSH (06:00)
[2020-06-14] MEDS: Sodium Chloride 0.45 % 1,000 ML 100 ML IVCONT (06:02)
[2020-06-14 06:37] LABS: MANUAL DIFF FLAG NO
[2020-06-14 07:04] LABS: Eosinophils Absolute Auto 0.1 X10*3/uL (0.0-0.4); Eosinophils Percent Auto 1.5 % (0-4); Hemoglobin 11.2 g/dl (14.0-18.0); Imm Gran Abs Auto 0.03 X10*3/uL (0.00-0.03); Imm Gran Pct Auto 0.5 % (0.0-0.4); Lymphocytes Absolute Auto 0.9 X10*3/uL (1.2-4.9); Lymphocytes Percent Auto 13.6 % (20-40); Mean Corpuscular HGB Conc 33.9 g/dl (31.0-36.0); Mean Corpuscular Hemoglobin 30.7 pg (27.0-33.0); Mean Corpuscular Volume 90.4 fL (80-98); Mean Platelet Volume 9.4 fL (9.4-12.4); Monocytes Absolute Auto 0.5 X10*3/uL (0.1-1.2); Monocytes Percent Auto 7.2 % (2-11); Neutrophils Percent Auto 77.2 % (45-73); Platelet Count 100 X10*3/uL (160-400); Red Blood Count 3.65 X10*6/uL (4.60-5.80); Red Cell Distribution Width 12.6 % (11.0-16.0); White Blood Count 6.5 X10*3/uL (4.8-10.8)
[2020-06-14 07:16] LABS: Alanine Aminotransferase 21 U/L (0-40); Albumin Level 3.4 g/dL (3.5-5.0); Alkaline Phosphatase 131 U/L (39-117); Anion Gap 13 (12-20); Aspartate Amino Transferase 21 U/L (5-37); Bilirubin Direct 0.3 mg/dL (0.0-0.5); Bilirubin Total 0.7 mg/dL (0.0-1.0); Blood Urea Nitrogen 40 mg/dL (9-16); Calcium 7.6 mg/dL (8.4-10.2); Carbon Dioxide 30 mmol/L (22-29); Chloride 105 mmol/L (96-108); Estimated Glomerular Filt Rate > 60; Glucose Random 270 mg/dL (60-115); Phosphorus 1.1 mg/dL (2.7-4.5); Potassium 3.9 mmol/L (3.3-5.1); Sodium 144 mmol/L (135-145); Total Protein 5.7 g/dL (6.5-8.0)
[2020-06-14 07:32] LABS: Lipase 209 U/L (8-78)
[2020-06-14 07:36] LABS: Glucose, Whole Blood 249 mg/dL (60-115)
[2020-06-14] MEDS: Aspirin Enteric Coated 81 MG TABLET.DR PO (07:54)
[2020-06-14] MEDS: Pravastatin Sodium 20 MG TABLET PO (07:54)
[2020-06-14] MEDS: Pregabalin 150 MG CAPSULE PO ×3 (07:54→20:11)
[2020-06-14] MEDS: Insulin Glargine,Hum.rec.anlog 100 UNIT/ML 10 ML VIAL 30 UNIT SUBCUT ×2 (07:54→20:11)
[2020-06-14] MEDS: Insulin Lispro 100 UNIT/ML 3 ML VIAL SUBCUT ×4 (07:55→20:12)
[2020-06-14] MEDS: Levothyroxine Sodium 200 MCG TABLET PO (09:56)
[2020-06-14] MEDS: Sodium,Potassium Phosphates POWD.PACK 2 PACKET PO (09:56)
[2020-06-14] MEDS: TiZANidine HCL 4 MG TABLET PO ×2 (09:56→16:23)
[2020-06-14 11:19] LABS: Glucose, Whole Blood 270 mg/dL (60-115)
[2020-06-14] MEDS: HYDROcodone Bit/Acetam 5/325 TABLET 1 TAB PO ×4 (11:21→23:58)
--- NOTE | 2020-06-14 15:25 | P.PNIM_ITS ---
Subjective Subjective Date of Service: 06/14/20 Interval History: c/o low back pain no fever no dyspnea Physical Exam Vital Signs: Vital Signs: Last Vital Signs Temp 97.2 F 06/14/20 11:50 Pulse 76 06/14/20 11:50 Resp 18 06/14/20 11:50 BP 119/63 06/14/20 11:50 Pulse Ox 96 06/14/20 11:50 Body Mass Index 36.4 Gen: in no acute distress HEENT: sclera anicteric, moist mucus membranes Neck: supple Lungs: clear to auscultation bilaterally Heart: regular rate and rhythm, no murmurs Abd: soft, non-tender, non-distended Ext: no edema Skin: warm/well-perfused, surgical scar on back clean/dry/intact Neuro: alert and oriented x3, no focal findings Psych: appropriate affect Objective Data Current Medications Generic Name Dose Route Start Last Admin Trade Name Freq PRN Reason Stop Dose Admin Hydrocodone Bitart/Acetaminophen 1 tab 06/14/20 11:12 06/14/20 11:21 Hydrocodone Bit/Acetam 5/325 Tablet PO 1 tab Q4H PRN Administration pain,severe Aspirin 81 mg 06/13/20 09:00 06/14/20 07:54 Aspirin Enteric Coated 81 Mg Tablet.Dr PO 81 mg DAILY EDWARD Administration Vancomycin HCl 1,000 mg/ 270 mls @ 270 mls/hr 06/13/20 22:00 06/13/20 22:41 Sodium Chloride IV Infused Q24H EDWARD Infusion Piperacillin Sod/Tazobactam 50 mls @ 100 mls/hr 06/12/20 23:00 06/14/20 10:50 Sod 3.375 gm/ Sodium Chloride IV Infused Q6H [facility]WARD Infusion Insulin Glargine 30 unit 06/12/20 21:00 06/14/20 07:54 Insulin Glargine,Hum.Rec.Anlog 100 Unit/Ml 10 Ml Vial SUBCUT 30 unit Q12H EDWARD Administration Insulin Human Lispro 0 unit 06/13/20 13:00 06/14/20 11:25 Insulin Lispro 100 Unit/Ml 3 Ml Vial SUBCUT 8 unit QIDACHS EDWRAD Administration Protocol Levothyroxine Sodium 200 mcg 06/14/20 09:00 06/14/20 09:56 Levothyroxine Sodium 200 Mcg Tablet PO 200 mcg DAILY@0630 EDWARD Administration Pantoprazole Sodium 40 mg 06/13/20 06:30 06/14/20 06:00 Pantoprazole Sodium 40 Mg/10 Ml Vial IVPUSH 40 mg DAILY@30 [facility] Administration Pharmacy Consult 1 each 06/12/20 21:56 Consult Rx Vancomycin Dosing MISCELLANE DAILY PRN Consult order Pravastatin Sodium 20 mg 06/13/20 09:00 06/14/20 07:54 Pravastatin Sodium 20 Mg Tablet PO 20 mg DAILY EDWARD Administration Pregabalin 150 mg 06/13/20 09:00 06/14/20 14:18 Pregabalin 150 Mg Capsule PO 150 mg TID [facility] Administration Tizanidine HCl 4 mg 06/14/20 09:00 06/14/20 09:56 Tizanidine Hcl 4 Mg Tablet PO 4 mg Q8H EDWARD Administration Labs CBC & Chem 7: 06/14/20 06:18 06/14/20 06:18 Labs: Laboratory Results - last 24 hr 06/13/20 06/13/20 06/14/20 16:12 19:58 06:18 WBC 6.5 RBC 3.65 L Hgb 11.2 L Hct 33.0 L MCV 90.4 MCH 30.7 MCHC 33.9 RDW 12.6 Plt Count 100 L MPV 9.4 Immature Gran % (Auto) 0.5 H Neut % (Auto) 77.2 H Lymph % (Auto) 13.6 L [place] % (Auto) 7.2 Eos % (Auto) 1.5 Baso % (Auto) 0.0 Lymph # (Auto) 0.9 L [place] # (Auto) 0.5 Eos # (Auto) 0.1 Baso # (Auto) 0.0 Abs Immat Gran (auto) 0.03 Absolute Neuts (auto) 5.0 Absolute Nucleated RBC 0.000 Nucleated RBC % (auto) 0.0 Sodium Potassium Chloride Carbon Dioxide Anion Gap BUN Creatinine Estim Creat Clear Calc Estimated GFR POC Glucose 261 H 247 H Random Glucose Calcium Phosphorus Total Bilirubin Direct Bilirubin AST ALT Alkaline Phosphatase Total Protein Albumin Lipase 06/14/20 06/14/20 06/14/20 06:18 06:18 07:28 WBC RBC Hgb Hct MCV MCH MCHC RDW Plt Count MPV Immature Gran % (Auto) Neut % (Auto) Lymph % (Auto) [place] % (Auto) Eos % (Auto) Baso % (Auto) Lymph # (Auto) [place] # (Auto) Eos # (Auto) Baso # (Auto) Abs Immat Gran (auto) Absolute Neuts (auto) Absolute Nucleated RBC Nucleated RBC % (auto) Sodium 144 Potassium 3.9 Chloride 105 Carbon Dioxide 30 H Anion Gap 13 BUN 40 H Creatinine 1.21 Estim Creat Clear Calc 84.0 Estimated GFR > 60 POC Glucose 249 H Random Glucose 270 H Calcium 7.6 L D Phosphorus 1.1 L Total Bilirubin 0.7 Direct Bilirubin 0.3 AST 21 ALT 21 Alkaline Phosphatase 131 H Total Protein 5.7 L Albumin 3.4 L Lipase 209 H 06/14/20 11:04 WBC RBC Hgb Hct MCV MCH MCHC RDW Plt Count MPV Immature Gran % (Auto) Neut % (Auto) Lymph % (Auto) [place] % (Auto) Eos % (Auto) Baso % (Auto) Lymph # (Auto) [place] # (Auto) Eos # (Auto) Baso # (Auto) Abs Immat Gran (auto) Absolute Neuts (auto) Absolute Nucleated RBC Nucleated RBC % (auto) Sodium Potassium Chloride Carbon Dioxide Anion Gap BUN Creatinine Estim Creat Clear Calc Estimated GFR POC Glucose 270 H Random Glucose Calcium Phosphorus Total Bilirubin Direct Bilirubin AST ALT Alkaline Phosphatase Total Protein Albumin Lipase Microbiology Microbiology Results: Microbiology 06/13/20 12:29 Blood - Venous Blood Culture - Preliminary No growth after 24 hours. 06/13/20 12:43 Blood - Venous Blood Culture - Preliminary No growth after 24 hours. Assessment and Plan (1) Chronic pain syndrome: Status: Acute (2) Bacteremia: Status: Acute (3) Acute kidney failure: Status: Acute (4) Hyperglycemia due to type 2 diabetes mellitus: Status: Acute Assessment and Plan: Hospital d#4 54yo M with DM2 on insulin pump complicated by neuropathy + nephropathy, pancreatitis s/p partial pancreatectomy, HTN, HLD, depression, hypothyroidism, and chronic low back pain s/p lumbar laminectomy and recent (06/05) [place]athecal hydrom[place] [facility] [place] [facility] ED 06/11 with lethargy after insulin pump malfunction, nausea and vomiting; took only 1d of prescribed postoperative cephalexin Found to be obtunded and hypotensive, in DKA [glu 1440, AG 46, pH 7.15] and MARVIN [SCr 4.5]; fluid-resuscitated and started on insulin drip Transferred [place] [facility] [place], ICU consulted and deferred admission given improvement in mental status and labs; patient admitted to [facility], where he got 3 doses of naloxone due to suspected opioid overdose Started on vancomycin + piperacillin/tazobactam for suspected sepsis and 1/2 BCx are now positive for GPCs, suspected Enterococcus by PCR Transfer[place] [facility] [place] 06[place]12 or management of the intrathecal pain pump by Dr Ferrell as no similar service was available at [facility]pped down to [place] 06/13 # Gram positive bacteremia # intrathecal medication pump # possible PNA - 1/2 BCx from [facility] on 06/11 growing GPCs, PCR identified as Enterococcus sp- will continue to check in with [facility] lab for definitive speciation + susceptibilities. On vanco + pip/werner d#3. Notified Dr Ferrell [Pain Mgmt]. He was planning to check the catheter in the OR 06/16 but the entire pump may need to come out. He interrogated the pump and it was functioning normally and should only be giving 3 mcg/d of hydromorphone. ID consulted. # hyperNa # MARVIN - resolved- d/c / NS. continue to hold lisinopril- consider resuming in 1-2d. # DM2 with hyperglycemia, A1c 9.8, insulin pump malfunction # DKA, resolving - Lantus + Humalog - will need outpt Endocrine f/u to replace insulin pump # hyperlipasemia - suspect due to DKA + MARVIN, not pancreatitis # HLD - continue statin # chronic pain syndrome - continue pregabalin + tizanidine, add prn oxycodone # VTE ppx - SCDs
[2020-06-14 15:58] LABS: Glucose, Whole Blood 256 mg/dL (60-115)
[2020-06-14 18:49] LABS: Glucose Urine UA >=1000 MG/DL (NEG); Leukocyte Esterase Urine NEG (NEG); Nitrite Urine NEG (NEG); Urine Blood 3+ (NEG); Urine Ketones NEG (NEG); Urine Protein NEG (NEG-TRACE)
[2020-06-14 18:59] LABS: Appearance Urine TURBID; Color Urine YELLOW
[2020-06-14 19:05] LABS: Squamous Epithelial Cell Urine 1+ /LPF; Uric Acid Crystals Urine 4+ /LPF; WBC Urine 0-2 /HPF (0-4)
[2020-06-14 19:50] LABS: Glucose, Whole Blood 205 mg/dL (60-115)
[2020-06-14] MEDS: Ampicillin Sodium 2 GM in 0.9 % Sodium Chloride 100 ML IV ×2 (19:59→23:58)
[2020-06-15] MEDS: TiZANidine HCL 4 MG TABLET PO ×3 (03:08→16:54)
[2020-06-15 03:13] VITALS: BP 130/70; PULSE 83; RESP 18; TEMP 36.9; O2SAT 94
[2020-06-15] MEDS: HYDROcodone Bit/Acetam 5/325 TABLET 1 TAB PO ×4 (04:09→23:38)
[2020-06-15 07:10] VITALS: BP 131/86; PULSE 65; RESP 18; TEMP 36.6; O2SAT 96
[2020-06-15 07:12] LABS: Anion Gap 13 (12-20); Blood Urea Nitrogen 25 mg/dL (9-16); Calcium 7.3 mg/dL (8.4-10.2); Carbon Dioxide 28 mmol/L (22-29); Chloride 103 mmol/L (96-108); Creatinine Clr Calc Pharmacy 110.5; Estimated Glomerular Filt Rate > 60; Glucose Random 172 mg/dL (60-115); Phosphorus 1.4 mg/dL (2.7-4.5); Potassium 3.7 mmol/L (3.3-5.1); Sodium 140 mmol/L (135-145)
[2020-06-15 07:22] LABS: Glucose, Whole Blood 158 mg/dL (60-115)
[2020-06-15] MEDS: Levothyroxine Sodium 200 MCG TABLET PO (07:28)
[2020-06-15] MEDS: Pantoprazole Sodium 40 MG/10 ML VIAL IVPUSH (08:16)
[2020-06-15] MEDS: Ampicillin Sodium 2 GM in 0.9 % Sodium Chloride 100 ML IV ×4 (08:16→21:57)
[2020-06-15] MEDS: Aspirin Enteric Coated 81 MG TABLET.DR PO (08:17)
[2020-06-15] MEDS: Pregabalin 150 MG CAPSULE PO ×3 (08:17→21:59)
[2020-06-15] MEDS: Pravastatin Sodium 20 MG TABLET PO (08:18)
[2020-06-15] MEDS: Insulin Glargine,Hum.rec.anlog 100 UNIT/ML 10 ML VIAL 30 UNIT SUBCUT ×2 (08:18→22:00)
[2020-06-15 08:32] LABS: Hematocrit 31.3 % (42-52); Hemoglobin 11.1 g/dl (14.0-18.0); Mean Corpuscular HGB Conc 35.5 g/dl (31.0-36.0); Mean Corpuscular Volume 87.4 fL (80-98); Mean Platelet Volume 9.7 fL (9.4-12.4); Red Blood Count 3.58 X10*6/uL (4.60-5.80); Red Cell Distribution Width 12.3 % (11.0-16.0); White Blood Count 6.9 X10*3/uL (4.8-10.8)
[2020-06-15 08:36] LABS: Platelet Count 84 X10*3/uL (160-400)
[2020-06-15 08:52] LABS: Anion Gap 10 (12-20); Blood Urea Nitrogen 22 mg/dL (9-16); Calcium 7.4 mg/dL (8.4-10.2); Carbon Dioxide 31 mmol/L (22-29); Chloride 103 mmol/L (96-108); Estimated Glomerular Filt Rate > 60; Glucose Random 157 mg/dL (60-115); Potassium 3.7 mmol/L (3.3-5.1); Sodium 140 mmol/L (135-145)
[2020-06-15 11:03] VITALS: BP 122/67; PULSE 85; RESP 20; TEMP 35.5; O2SAT 97
[2020-06-15 11:29] LABS: Glucose, Whole Blood 149 mg/dL (60-115)
[2020-06-15] MEDS: Insulin Lispro 100 UNIT/ML 3 ML VIAL SUBCUT ×3 (11:44→22:02)
--- NOTE | 2020-06-15 12:00 | CA_ITS ---
Transthoracic Echocardiogram Patient (Last, First, Middle): Pacheco Gibson J Gender: Male Date of : 1965 Age: 54 Procedure Date: 06/15/2020 Procedure Type: Transthoracic Echocardiogram Location: [facility] [place] Height: 175.26 cm Weight: 111.59 kg BSA: 2.26 m2 Heart Rate: bpm BP: 122 / 56 mmHg Temple Marker: Referring MD: Paloma Hutton MD Symptoms: bacteremia Study Quality: Technically Difficult ECG Rhythm: Sinus Conclusions: - Technically limited study. - The left ventricular systolic function is mildly decreased. The visually estimated ejection fraction is between 40-45%. - Regional wall motion abnormalities can not be excluded due to suboptimal endocardial definition. - The aortic valve was not well visualized. Findings Left Ventricle Normal left ventricular cavity size. There is mildly increased left ventricular wall thickness. The left ventricular systolic function is mildly decreased. The visually estimated ejection fraction is between 40-45%. Regional wall motion abnormalities can not be excluded due to suboptimal endocardial definition. Diastolic function is normal for age. Right Ventricle Normal right ventricular cavity size and systolic function. Atria The left atrium is normal in size. Aortic Valve The aortic valve was not well visualized. There is no evidence of calcification of the aortic valve. There is no aortic valve stenosis. There is no aortic valve regurgitation. Mitral Valve Normal mitral valve structure and function. There is no mitral valve regurgitation. There is no mitral valve stenosis. Pulmonic Valve The pulmonic valve is likely normal. Tricuspid Valve Likely normal tricuspid valve structure and function. There is trace tricuspid valve regurgitation. Tricuspid regurgitation envelope is inadequate for calculation of right ventricular systolic pressure. Indeterminate right atrial pressure. Great Vessels All visible segments of the aorta are normal in size. The visualized portions of the pulmonary artery and branches are normal. Venous The inferior vena cava was not well visualized. Pericardium/Pleural There is no evidence of pericardial effusion. Prior Study Comparison No prior study available for comparison. Recommendations, Care & Conclusions Consider a CHANCE if clinically appropriate. Recommend contrast in the future to improve endocardial definition. Measurements 2D Linear Measurements IVSd: 1.36 0.6-0.9/0.6-1.0 cm LVIDd: 4.56 3.9-5.3/4.2-5.9 cm LVIDd Index: 2.02 2.4-3.2/2.2-3.1 cm/m2 LVIDs: 3.10 2.0-3.6 cm LVPWd: 1.36 0.7-1.1 cm Ao Root: 3.20 2.1-3.5 cm LA Diam: 3.40 2.7-3.8/3.0-4.0 cm LAIDs Index: 1.50 1.5-2.3 cm/m2 LV Mass: 302.65 67-162/88-224 g LV Mass Index: 133.92 43-95/49-115 g/m2 LVOT Diam: 2.60 3.0+(-)1.3 cm Mitral Valve MV Pk E: 0.54 MV PK A: 0.64 MV Decel Time: 169.00 E/A: 0.80 E'Lateral: 10.70 E'Medial: 6.38 E/E' Med: 8.50 E/E' Lat: 5.10 PHT: 50.00 MVA PHT: 4.40 Decel Powell: 3.21 Aortic Valve AoV Pk Trevin: 1.10 AoV Mn Trevin: 0.76 AoV VTI: 0.19 AoV Pk Grad: 5.00 Aov Mn Grad: 3.00 DOREEN Cont.VTI: 4.78 LVOT LVOT Pk Trevin: 0.90 LVOT Mn Trevin: 0.59 LVOT VTI: 0.17 LVOT Pk Grad: 3.00 LVOT Mn Grad: 2.00 LVOT Diam: 2.60 LVOT Area: 5.31 Diastolic Function MV Pk E: 0.54 MV Pk A: 0.64 E/A: 0.80 E'Medial: 6.38 E/E' Med: 8.50 E' Laterial: 10.70 E/E' Lat: 5.10 Tricuspid Valve TR Pk Trevin: 1.75 TR Pk Grad: 12.00 RA Press: 3.00 Great Vessels Aorta Ao Root-2D: 3.20 2.0-3.7 cm Pulmonary Valve PV Pk Trevin: 1.02 Peak PV Grad: 4.00 Updated in Other Vendor System with Status of Final Donavan Hansen MD electronically signed on 06/15/2020 1:30:50 PM with status of Final
--- NOTE | 2020-06-15 13:13 | P.PNIM_ITS ---
Subjective Subjective Date of Service: 06/15/20 Interval History: seen and examined this AM feeling better reports tolerating his diet this AM pain okay ROS General - no fevers or chills Cardiovascular - no chest pain Respiratory - no shortness of breath or cough Abdominal- no abdominal pain, nausea, vomiting, diarrhea Physical Exam Vital Signs: Vital Signs: Last Vital Signs Temp 96 F L 06/15/20 11:03 Pulse 85 06/15/20 11:03 Resp 20 06/15/20 11:03 BP 122/67 06/15/20 11:03 Pulse Ox 97 06/15/20 11:03 Body Mass Index 36.4 Const: Other: General - no acute distress, appears comfortable Cardiovascular - regular rate and rhythm, S1-S2 Lungs - normal respiratory effort, clear to auscultation bilaterally, no wheezing Abdomen - soft, nontender, no rebound or guarding Extremities - no edema bilaterally Neuro - awake and alert, no focal deficits Skin - warm Objective Data Current Medications Generic Name Dose Route Start Last Admin Trade Name Freq PRN Reason Stop Dose Admin Hydrocodone Bitart/Acetaminophen 1 tab 06/14/20 11:12 06/15/20 12:56 Hydrocodone Bit/Acetam 5/325 Tablet PO 1 tab Q4H PRN Administration pain,severe Aspirin 81 mg 06/13/20 09:00 06/15/20 08:17 Aspirin Enteric Coated 81 Mg Tablet. PO 81 mg DAILY EDWARD Administration Ampicillin Sodium 2 gm/ Sodium 100 mls @ 100 mls/hr 06/14/20 20:00 06/15/20 12:49 Chloride IV Infused Q4H EDWARD Infusion Insulin Glargine 30 unit 06/12/20 21:00 06/15/20 08:18 Insulin Glargine,Hum.Rec.Anlog 100 Unit/Ml 10 Ml Vial SUBCUT 30 unit Q12H EDWARD Administration Insulin Human Lispro 0 unit 06/13/20 13:00 06/15/20 11:44 Insulin Lispro 100 Unit/Ml 3 Ml Vial SUBCUT 2 unit QIDACHS EDWARD Administration Protocol Levothyroxine Sodium 200 mcg 06/14/20 09:00 06/15/20 07:28 Levothyroxine Sodium 200 Mcg Tablet PO 200 mcg DAILY@0630 EDWARD Administration Pantoprazole Sodium 40 mg 06/13/20 06:30 06/15/20 08:16 Pantoprazole Sodium 40 Mg/10 Ml Vial IVPUSH 40 mg DAILY@0630 [facility] Administration Pharmacy Consult 1 each 06/12/20 21:56 Consult Rx Vancomycin Dosing MISCELLANE DAILY PRN Consult order Pravastatin Sodium 20 mg 06/13/20 09:00 06/15/20 08:18 Pravastatin Sodium 20 Mg Tablet PO 20 mg DAILY EDWARD Administration Pregabalin 150 mg 06/13/20 09:00 06/15/20 08:17 Pregabalin 150 Mg Capsule PO 150 mg TID EDWARD Administration Tizanidine HCl 4 mg 06/14/20 09:00 06/15/20 08:17 Tizanidine Hcl 4 Mg Tablet PO 4 mg Q8H EDWARD Administration Labs CBC & Chem 7: 06/15/20 08:15 06/15/20 08:15 Microbiology Microbiology Results: Microbiology 06/14/20 18:20 Urine clean catch - Dowell Catheter Urine Culture - Preliminary No growth to date. 06/13/20 12:29 Blood - Venous Blood Culture - Preliminary No growth after 24 hours. 06/13/20 12:43 Blood - Venous Blood Culture - Preliminary No growth after 24 hours. Blood Cx Report [place]from [facility] [place] CULTURE : ENTEROCOCCUS FAECALIS SERIOUS ENTEROCOCCAL INFECTIONS SHOULD BE TREATED WITH AMPICILLIN, PENICILLIN OR VANCOMYCIN IN SYNERGISTIC COMBINATION WITH AN AMINOGLYCOSIDE. BOTH DRUGS USED MUST BE ACTIVE. Enterococcus species was identified by multi-plex PCR REPORT STATUS : FINAL 06/14/2020 ORGANISM ENTEROCOCCUS FAECALIS SERIOUS ENTEROCOCCAL INFECTIONS SHOULD BE TREATED WITH AMPICILLIN, PENICILLIN OR VANCOMYCIN IN SYNERGISTIC COMBINATION WITH AN AMINOGLYCOSIDE. BOTH DRUGS USED MUST BE ACTIVE. METHOD MIN. INHIB. CONC. (MCG/ML) AMPICILLIN SUSCEPTIBLE VANCOMYCIN SUSCEPTIBLE GENTAMICIN SYNERGY ACTIVE IN SYNERGY STREPTOMYCIN SYNERGY ACTIVE IN SYNERGY 1:18 PM 30 days left Assessment and Plan (1) Chronic pain syndrome: Status: Acute (2) Bacteremia: Status: Acute (3) Acute kidney failure: Status: Acute (4) Hyperglycemia due to type 2 diabetes mellitus: Status: Acute Assessment and Plan: 54yo M with DM2 on insulin pump complicated by neuropathy + nephropathy, pancreatitis s/p partial pancreatectomy, HTN, HLD, depression, hypothyroidism, and chronic low back pain s/p lumbar laminectomy and recent (06/05) intrathecal hydromorphone pump [place] [facility] [place] Presented to [facility] ED 06/11 with lethargy after insulin pump malfunction, nausea and vomiting; took only 1d of prescribed postoperative cephalexin Found to be obtunded and hypotensive, in DKA [glu 1440, AG 46, pH 7.15] and MARVIN [SCr 4.5]; fluid-resuscitated and started on insulin drip Transferred to [facility] [place] [place], ICU consulted and deferred admission given improvement in mental status and labs; [facility] doses of naloxone due to suspected opioid overdose Started on vancomycin + piperacillin/tazobactam for suspected sepsis and 1/ BCx are now positive for GPCs, suspected Enterococcus by PCR Transferred to [facility] [place] 06/12 or management of the intrathecal pain pump by Dr Ferrell as no similar service was available at [facility] [place] [facility] [place] # Enterococcus bacteremia # intrathecal medication pump # possible PNA See cultures info from above 03/02 bottles at [facility] [place] are positive for Enteroccous faecealis. On Ampicillin. S/p vancomyin/zosyn ID on board Pain mgmt (Dr. Ferrell) aware repeat blood cx here are negative was planned to get CT abd/pelvis with contrast today -- however, does not have appropriate IV access. Will need PICC line tomorrow. # hyperNa # MARVIN resolved probably restart lisinopril by tomorrow # DM2 with hyperglycemia, A1c 9.8, insulin pump malfunction # DKA, resolving - Lantus + Humalog - will need outpt Endocrine f/u to replace insulin pump # hyperlipasemia - suspect due to DKA + MARVIN, not pancreatitis # HLD - continue statin # chronic pain syndrome - continue pregabalin + tizanidine, add prn oxycodone # Thrombocytoepnia monitor # VTE ppx - SCDs Full Code
[2020-06-15 15:45] VITALS: BP 160/75; PULSE 83; RESP 18; TEMP 37.1; O2SAT 94
--- NOTE | 2020-06-15 16:07 | MHC.CM.PN ---
CM MET WITH PT AND DAUGHTER WHO WAS AT BEDSIDE. THEY REPORTS THE PT IS ACTIVE [facility] AND THEY WANT TO MAKE SURE THEY RECEIVE THE DC INFO. THEY ALSO WANT TO MAKE SURE PTS PCP ODALYS SHARMA RECEIVES IT. DTR AND PT REPORTS THE PT IS USUALLY INDEPENDENT AND USES AN INSULIN PUMP THAT MALFUNCTIONED RESULTING IN HIS ADMISSION. PT IS AWAITING THE REPLACEMENT. PT WILL DC HOME WHERE HE LIVES WITH HIS SON AND DAUGHTER IN LAW. PT IS INTERESTED IN HAVING A [facility] AT DC. FAMILY WILL TRANSPORT
[2020-06-15 16:43] LABS: Glucose, Whole Blood 259 mg/dL (60-115)
[2020-06-15 19:07] VITALS: BP 136/94; PULSE 93; RESP 20; TEMP 37.3; O2SAT 95
[2020-06-15 21:07] LABS: Glucose, Whole Blood 280 mg/dL (60-115)
[2020-06-16] VITALS: BP 129/61; PULSE 87; RESP 20; TEMP 37.1; O2SAT 95
[2020-06-16] MEDS: TiZANidine HCL 4 MG TABLET PO ×3 (01:59→16:51)
[2020-06-16] MEDS: Ampicillin Sodium 2 GM in 0.9 % Sodium Chloride 100 ML IV ×6 (02:05→22:05)
[2020-06-16 04:00] VITALS: BP 145/71; PULSE 81; RESP 18; TEMP 36.6; O2SAT 94
[2020-06-16] MEDS: HYDROcodone Bit/Acetam 5/325 TABLET 1 TAB PO ×3 (05:29→22:05)
[2020-06-16] MEDS: Levothyroxine Sodium 200 MCG TABLET PO (06:22)
[2020-06-16 06:49] VITALS: BP 124/77; PULSE 88; RESP 19; TEMP 36.6; O2SAT 96
[2020-06-16 07:12] LABS: Glucose, Whole Blood 234 mg/dL (60-115)
[2020-06-16] MEDS: Insulin Glargine,Hum.rec.anlog 100 UNIT/ML 10 ML VIAL 30 UNIT SUBCUT ×2 (08:48→22:06)
[2020-06-16] MEDS: Insulin Lispro 100 UNIT/ML 3 ML VIAL SUBCUT ×4 (08:48→22:06)
[2020-06-16] MEDS: Pregabalin 150 MG CAPSULE PO ×3 (08:49→22:05)
[2020-06-16] MEDS: Aspirin Enteric Coated 81 MG TABLET.DR PO (08:49)
[2020-06-16] MEDS: Pravastatin Sodium 20 MG TABLET PO (08:49)
[2020-06-16 11:02] VITALS: BP 124/80; PULSE 88; RESP 18; TEMP 36; O2SAT 94
[2020-06-16 11:15] LABS: Glucose, Whole Blood 291 mg/dL (60-115)
--- NOTE | 2020-06-16 11:25 | P.PNIM_ITS ---
Subjective Subjective Date of Service: 06/16/20 Interval History: seen and examined this AM no new complaints seen ambulating in the hallway without any issues ROS General - no fevers or chills Cardiovascular - no chest pain Respiratory - no shortness of breath or cough Abdominal- no abdominal pain, nausea, vomiting, diarrhea Physical Exam Vital Signs: Vital Signs: Last Vital Signs Temp 96.8 F 06/16/20 11:02 Pulse 88 06/16/20 11:02 Resp 18 06/16/20 11:02 BP 124/80 06/16/20 11:02 Pulse Ox 94 06/16/20 11:02 Body Mass Index 36.4 Const: Other: General - no acute distress, appears comfortable Cardiovascular - regular rate and rhythm, S1-S2 Lungs - normal respiratory effort, clear to auscultation bilaterally, no wheezing Abdomen - soft, nontender, no rebound or guarding Extremities - no edema bilaterally Neuro - awake and alert, no focal deficits Skin - warm -- see pictures of back below Objective Data Current Medications Generic Name Dose Route Start Last Admin Trade Name Heronq PRN Reason Stop Dose Admin Hydrocodone Bitart/Acetaminophen 1 tab 06/14/20 11:12 06/16/20 05:29 Hydrocodone Bit/Acetam 5/325 Tablet PO 1 tab Q4H PRN Administration pain,severe Aspirin 81 mg 06/13/20 09:00 06/16/20 08:49 Aspirin Enteric Coated 81 Mg Tablet. PO 81 mg DAILY EDWARD Administration Ampicillin Sodium 2 gm/ Sodium 100 mls @ 100 mls/hr 06/14/20 20:00 06/16/20 10:04 Chloride IV Infused Q4H [facility] Infusion Insulin Glargine 30 unit 06/12/20 21:00 06/16/20 08:48 Insulin Glargine,Hum.Rec.Anlog 100 Unit/Ml 10 Ml Vial SUBCUT 30 unit Q12H EDWARD Administration Insulin Human Lispro 0 unit 06/13/20 13:00 06/16/20 08:48 Insulin Lispro 100 Unit/Ml 3 Ml Vial SUBCUT 6 unit QIDACHS [facility] Administration Protocol Levothyroxine Sodium 200 mcg 06/14/20 09:00 06/16/20 06:22 Levothyroxine Sodium 200 Mcg Tablet PO 200 mcg DAILY@0630 [facility] Administration Pharmacy Consult 1 each 06/12/20 21:56 Consult Rx Vancomycin Dosing MISCELLANE DAILY PRN Consult order Pravastatin Sodium 20 mg 06/13/20 09:00 06/16/20 08:49 Pravastatin Sodium 20 Mg Tablet PO 20 mg DAILY EDWARD Administration Pregabalin 150 mg 06/13/20 09:00 06/16/20 08:49 Pregabalin 150 Mg Capsule PO 150 mg TID EDWARD Administration Tizanidine HCl 4 mg 06/14/20 09:00 06/16/20 08:49 Tizanidine Hcl 4 Mg Tablet PO 4 mg Q8H EDWARD Administration Labs CBC & Chem 7: 06/15/20 08:15 06/15/20 08:15 Microbiology Microbiology Results: Microbiology 06/14/20 18:20 Urine clean catch - Dowell Catheter Urine Culture - Final No growth. 06/13/20 12:29 Blood - Venous Blood Culture - Preliminary No growth after 48 hours. 06/13/20 12:43 Blood - Venous Blood Culture - Preliminary No growth after 48 hours. Assessment and Plan (1) Chronic pain syndrome: Status: Acute (2) Bacteremia: Status: Acute (3) Acute kidney failure: Status: Acute (4) Hyperglycemia due to type 2 diabetes mellitus: Status: Acute Assessment and Plan: 54yo M with DM2 on insulin pump complicated by neuropathy + nephropathy, pancreatitis s/p partial pancreatectomy, HTN, HLD, depression, hypothyroidism, and chronic low back pain s/p lumbar laminectomy and recent (06/05) intrathecal hydromorphone pump placed [place] [facility] [place] Presented to [facility] ED 06/11 with lethargy after insulin pump malfunction, nausea and vomiting; took only 1d of prescribed postoperative cephalexin Found to be obtunded and hypotensive, in DKA [glu 1440, AG 46, pH 7.15] and MARVIN [SCr 4.5]; fluid-resuscitated and started on insulin drip Transferred to [facility] [place] ED, ICU consulted and deferred admission given improvement in mental status and labs; patient admitted [facility], where he got 3 doses of naloxone due to suspected opioid overdose Started on vancomycin + piperacillin/tazobactam for suspected sepsis and 1/2 BCx are now positive for GPCs, suspected Enterococcus by PCR Transferred to [facility] ICU 06/12 or management of the intrathecal pain pump by Dr Ferrell as no similar service was available at [facility] [place] [facility] [place] # Enterococcus bacteremia # intrathecal medication pump # possible PNA See cultures info from above 03/02 bottles at [facility] are positive for Enteroccous faecealis. On Ampicillin. S/p va ncomyin/zosyn ID on board D/W - Pain mgmt (Dr. Ferrell) today, will start with MRI of the thoracic / lumbar spines with an without contrast repeat blood cx here are negative will hold CT abd/pelvis for now with contrast PICC line today -- for antibiotics + poor venous access # hyperNa # MARVIN resolved hold lisinopril in light of getting contrast # DM2 with hyperglycemia, A1c 9.8, insulin pump malfunction # DKA, resolving - Lantus + Humalog - will need outpt Endocrine f/u to replace insulin pump # hyperlipasemia - suspect due to DKA + MARVIN, not pancreatitis # HLD - continue statin # chronic pain syndrome - continue pregabalin + tizanidine, add prn oxycodone # Thrombocytoepnia monitor # VTE ppx - SCDs Full Code
[2020-06-16 15:40] VITALS: BP 137/69; PULSE 91; RESP 19; TEMP 36.6; O2SAT 94
[2020-06-16 16:22] LABS: Glucose, Whole Blood 292 mg/dL (60-115)
[2020-06-16 18:55] LABS: COVID-19 Test Negative (Negative)
[2020-06-16 19:07] VITALS: BP 142/77; PULSE 88; RESP 18; TEMP 36.4; O2SAT 97
[2020-06-16 21:50] LABS: Glucose, Whole Blood 170 mg/dL (60-115)
[2020-06-17] VITALS (7 sets, daily range): BP systolic 111–147; BP diastolic 63–81; PULSE 76–93; RESP 18–20; TEMP 36.1–36.9; O2SAT 90–97
[2020-06-17] MEDS: Ampicillin Sodium 2 GM in 0.9 % Sodium Chloride 100 ML IV ×5 (01:37→20:05)
[2020-06-17] MEDS: TiZANidine HCL 4 MG TABLET PO ×3 (01:37→17:39)
[2020-06-17] MEDS: HYDROcodone Bit/Acetam 5/325 TABLET 1 TAB PO ×4 (04:12→21:33)
[2020-06-17] MEDS: Levothyroxine Sodium 200 MCG TABLET PO (06:12)
[2020-06-17 06:56] LABS: Hematocrit 34.9 % (42-52); Hemoglobin 12.3 g/dl (14.0-18.0); Mean Corpuscular HGB Conc 35.2 g/dl (31.0-36.0); Mean Corpuscular Hemoglobin 31.4 pg (27.0-33.0); Mean Platelet Volume 9.5 fL (9.4-12.4); Platelet Count 117 X10*3/uL (160-400); Red Blood Count 3.92 X10*6/uL (4.60-5.80); Red Cell Distribution Width 13.1 % (11.0-16.0); White Blood Count 11.6 X10*3/uL (4.8-10.8)
[2020-06-17 07:09] LABS: Glucose, Whole Blood 228 mg/dL (60-115)
[2020-06-17 07:29] LABS: Anion Gap 13 (12-20); Blood Urea Nitrogen 12 mg/dL (9-16); Calcium 8.1 mg/dL (8.4-10.2); Carbon Dioxide 28 mmol/L (22-29); Chloride 101 mmol/L (96-108); Creatinine Clr Calc Pharmacy 110.5; Estimated Glomerular Filt Rate > 60; Glucose Random 209 mg/dL (60-115); Potassium 3.9 mmol/L (3.3-5.1); Sodium 138 mmol/L (135-145)
[2020-06-17] MEDS: Insulin Lispro 100 UNIT/ML 3 ML VIAL SUBCUT ×2 (08:22→11:42)
[2020-06-17] MEDS: Pravastatin Sodium 20 MG TABLET PO (08:22)
[2020-06-17] MEDS: Pregabalin 150 MG CAPSULE PO ×3 (08:22→21:26)
[2020-06-17] MEDS: Insulin Glargine,Hum.rec.anlog 100 UNIT/ML 10 ML VIAL 30 UNIT SUBCUT (08:22)
[2020-06-17] MEDS: Aspirin Enteric Coated 81 MG TABLET.DR PO (08:23)
[2020-06-17 11:12] LABS: Glucose, Whole Blood 273 mg/dL (60-115)
--- NOTE | 2020-06-17 12:11 | MHC.CM.PN ---
DP Male 54 DX DKA. Pt will dc on IV ABX. [facility] will provide home care services. [facility] will provide the supplies including ABX. Waiting for PICC line placement. Waiting for prescription to send to [place] [facility], [facility] for Pt financial responsibility . DR BARCLAY expected to assess pump and maybe resume RX via pump. DC anticipated tomorrow. Family will provide transport. Pt will stay with his Dtr in [place]. CM will follow.
--- NOTE | 2020-06-17 13:36 | HO.PM.IMPN ---
Subjective Subjective Date of Service: 06/17/20 <Verito Nolasco NP - Last Filed: 06/17/20 15:38> 06/17/20 <Anup Collins MD - Last Filed: 06/22/20 08:20> Interval History: Follow up Chronic pain, DKA . <Verito Nolasco NP - Last Filed: 06/17/20 15:38> Physical Exam Vital Signs: Vital Signs: Last Vital Signs Temp 97 F 06/17/20 10:51 Pulse 92 06/17/20 10:51 Resp 20 06/17/20 10:51 BP 111/63 06/17/20 10:51 Pulse Ox 96 06/17/20 10:51 Body Mass Index 36.4 <Verito Nolasco NP - Last Filed: 06/17/20 15:38> Appearing in no acute distress lung sounds are clear to auscultation heart regular rate rhythm, clear S1, S2 positive bowel sounds, abdomen is soft, nontender neuro patient is alert x3, no focal deficits <Verito Nolasco NP - Last Filed: 06/17/20 15:38> Objective Data Current Medications Generic Name Dose Route Start Last Admin Trade Name Freq PRN Reason Stop Dose Admin Hydrocodone Bitart/Acetaminophen 1 tab 06/14/20 11:12 06/17/20 09:31 Hydrocodone Bit/Acetam 5/325 Tablet PO 1 tab Q4H PRN Administration pain,severe Aspirin 81 mg 06/13/20 09:00 06/17/20 08:23 Aspirin Enteric Coated 81 Mg Tablet.Dr PO 81 mg DAILY [facility] Administration Ampicillin Sodium 2 gm/ Sodium 100 mls @ 100 mls/hr 06/14/20 20:00 06/17/20 11:23 Chloride IV Infused Q4H [facility] Infusion Insulin Pump 1 each 06/17/20 16:30 Subcutaneous Insulin Pump SUBCUT QIDACHS [facility] Levothyroxine Sodium 200 mcg 06/14/20 09:00 06/17/20 06:12 Levothyroxine Sodium 200 Mcg Tablet PO 200 mcg DAILY@0630 [facility] Administration Pharmacy Consult 1 each 06/12/20 21:56 Consult Rx Vancomycin Dosing MISCELLANE DAILY PRN Consult order Pravastatin Sodium 20 mg 06/13/20 09:00 06/17/20 08:22 Pravastatin Sodium 20 Mg Tablet PO 20 mg DAILY [facility] Administration Pregabalin 150 mg 06/13/20 09:00 06/17/20 08:22 Pregabalin 150 Mg Capsule PO 150 mg TID [facility] Administration Tizanidine HCl 4 mg 06/14/20 09:00 06/17/20 08:23 Tizanidine Hcl 4 Mg Tablet PO 4 mg Q8H [facility] Administration <Verito Nolasco NP - Last Filed: 06/17/20 15:38> Labs CBC & Chem 7: : 06/17/20 06:28 06/19/20 08:04 <Vreito Nolasco NP - Last Filed: 06/17/20 15:38> Microbiology Microbiology Results: Microbiology 06/14/20 18:20 Urine clean catch - Dowell Catheter Urine Culture - Final No growth. 06/13/20 12:29 Blood - Venous Blood Culture - Preliminary No growth after 48 hours. 06/13/20 12:43 Blood - Venous Blood Culture - Preliminary No growth after 48 hours. <Verito Nolasco NP - Last Filed: 06/17/20 15:38> Assessment and Plan (1) Hyperglycemia due to type 2 diabetes mellitus: Status: Acute <Verito Nolasco NP - Last Filed: 06/17/20 15:38> (2) Bacteremia: Status: Acute <Verito Nolasco NP - Last Filed: 06/17/20 15:38> (3) Chronic pain syndrome: Status: Acute <Verito Nolasco NP - Last Filed: 06/17/20 15:38> (4) Acute kidney failure: Status: Acute <Verito Nolasco NP - Last Filed: 06/17/20 15:38> Assessment and Plan: 54 year old man tx to [facility] from [facility] for management of intrathecal dilaudid pump that was placed by Dr. Ferrell. Apparently he initially presented to [facility] and was drowsy. Six days prior he had an intrathecal Dilaudid pump placed and apparently had missed his postoperative appointment. His family was not aware that he ran out of his insulin and the patient had nausea and poor appetite and had only been eating chicken broth and [employer]. He presented to [facility] hypotensive with multiple electrolyte abnormalities and DKA. He was then subsequently transferred to [facility]. In [facility], he was treated for DKA. He was also thought to have sedation due to his intrathecal pump. Ultimately, after failed attempts to shut off the pain pump patient was transferred to [facility] to follow-up with Dr. Ferrell, who placed the pump. Enterococcus bacteremia. [facility] records. -03/02 bottles at [facility] are positive for Enteroccous faecealis. -change Ampicillin to vancomycin -ID on board -Repeat blood cx negative -Picc line today. Intrathecal medication pump. Chronic pain -Lumbar spine MRI showing no abscess -continue pregabalin, tizanidine, prn oxycodone Hypernatremia. resolved MARVIN resolved hold lisinopril in light of getting contrast DKA. Secondary to nausea, vomiting, insulin pump malfunction. Inital treatment at [facility] - Lantus, Humalog - Insulin pump delivered to patient while inpatient Hyperlipasemia - suspect due to DKA, MARVIN, not pancreatitis HLD - continue statin Thrombocytoepnia -Trend VTE ppx SCDs DISPO: Home tomorrow with services Attending: Dr. Collins <Verito Nolasco NP - Last Filed: 06/17/20 15:38>
--- NOTE | 2020-06-17 15:53 | P.PICC_ITS ---
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 Following completion of [place] Protocol the skin and soft tissues were anesthetized with 1% Lidocaine plain. Using ultrasound guidance, BRACHIAL vein access was obtained IN SINGLE ATTEMPT BY THIS RN. Over an 0.018 wire through peel-away sheath, a SINGLE LUMEN, 4 ECUADOREAN, PASV PICC line was positioned. Catheter length is 39 CM internal length, 3 CM external length, for a total trimmed length of 42 CM. The procedure was performed in S-272. Tip verification was performed by Irina eNgrete with Chris 3CG. Tip located in SVC. Ultrasound was used to document vein patency and for needle entry. A formal ultrasound picture and cardiac rhythm strip was recorded. [facility] [employer] [address] Magistrate has released the line for use and it is currently dressed with a StatLock, Tegaderm, and CHG disc. Verification has been performed for blood return and line patency. Arm Circumference: 43.5 CM Equipment: [email or web address] POWERPICC SOLO Catheter Type: 4 ECUADOREAN, SINGLE LUMEN, PASV Lot #: [id number]
[2020-06-17] MEDS: Subcutaneous Insulin Pump 1 EACH SUBCUT ×2 (16:30→20:30)
[2020-06-17 16:51] LABS: Glucose, Whole Blood 286 mg/dL (60-115)
[2020-06-17] MEDS: vancomycin HCL 1,500 MG in 0.9 % Sodium Chloride 500 ML 333.33 MG IV (17:43)
[2020-06-17 20:22] LABS: Glucose, Whole Blood 211 mg/dL (60-115)
[2020-06-18] VITALS (7 sets, daily range): BP systolic 129–171; BP diastolic 60–81; PULSE 80–87; RESP 16–18; TEMP 36–36.7; O2SAT 95–98
[2020-06-18] MEDS: TiZANidine HCL 4 MG TABLET PO ×4 (00:33→23:58)
[2020-06-18] MEDS: HYDROcodone Bit/Acetam 5/325 TABLET 1 TAB PO ×4 (01:59→17:21)
[2020-06-18] MEDS: Ampicillin Sodium 2 GM in 0.9 % Sodium Chloride 100 ML IV ×2 (04:09)
[2020-06-18] MEDS: vancomycin HCL 1,500 MG in 0.9 % Sodium Chloride 500 ML 333.33 MG IV ×2 (06:05→17:22)
[2020-06-18] MEDS: Levothyroxine Sodium 200 MCG TABLET PO (06:05)
[2020-06-18 07:40] LABS: Glucose, Whole Blood 152 mg/dL (60-115)
[2020-06-18] MEDS: Pregabalin 150 MG CAPSULE PO ×3 (08:12→21:36)
[2020-06-18] MEDS: Aspirin Enteric Coated 81 MG TABLET.DR PO (08:12)
[2020-06-18] MEDS: Pravastatin Sodium 20 MG TABLET PO (08:12)
[2020-06-18] MEDS: Subcutaneous Insulin Pump 1 EACH SUBCUT ×3 (08:16→17:22)
--- NOTE | 2020-06-18 08:46 | MHC.CM.PN ---
DP Home w IV ABX. Anni sheldon and Adolph have been updated with PICC info and final med. Final dose pending trough.. Anticipate dc tomorrow am. CM will follow.
[2020-06-18 11:39] LABS: Glucose, Whole Blood 190 mg/dL (60-115)
[2020-06-18 16:28] LABS: Glucose, Whole Blood 138 mg/dL (60-115)
--- NOTE | 2020-06-18 17:26 | HO.PM.IMPN ---
Subjective Subjective Date of Service: 06/18/20 Interval History: follow up for bacteremia, pain, DKA Patient having ongoing pain, denies fevers, chills Review of Systems Review of Systems: Yes all other systems are reviewed and are negative Constitutional Constitutional: Denies chills and Denies fever(s) Cardiovascular Cardiovascular: Denies chest pain Respiratory Respiratory: Denies cough Gastrointestinal Gastrointestinal: Denies abdominal pain Physical Exam Vital Signs: Vital Signs: Last Vital Signs Temp 97.7 F 06/18/20 15:23 Pulse 82 06/18/20 15:23 Resp 18 06/18/20 15:23 BP 160/77 H 06/18/20 15:23 Pulse Ox 98 06/18/20 15:23 Body Mass Index 36.4 Const: Nutritional Appearance: well nourished Orientation/consciousness: patient oriented x3 HENMT: Head: Yes normocephalic and Yes atraumatic Eyes: Sclerae: sclerae normal Chest: Chest palpation & inspection: normal inspection of the chest Resp: Effort & Inspection: normal respiratory effort and no respiratory distress Auscultation: clear to auscultation bilaterally Cardio: Rate: regular rate Rhythm: regular rhythm GI: Palpation (GI): Soft to palpation and nontender Skin: Other: abdominal binder in place Neuro: General: patient oriented x3 Cranial nerves: Yes CN's II-XII intact bilaterally and Yes Bilaterally intact EOM present Objective Data Current Medications Generic Name Dose Route Start Last Admin Trade Name Freq PRN Reason Stop Dose Admin Hydrocodone Bitart/Acetaminophen 1 tab 06/14/20 11:12 06/18/20 13:13 Hydrocodone Bit/Acetam 5/325 Tablet PO 1 tab Q4H PRN Administration pain,severe Aspirin 81 mg 06/13/20 09:00 06/18/20 08:12 Aspirin Enteric Coated 81 Mg Tablet.Dr PO 81 mg DAILY [facility] Administration Vancomycin HCl 1,500 mg/ 500 mls @ 333.333 mls/hr 06/17/20 18:00 06/18/20 08:12 Sodium Chloride IV Infused Q12H [facility] Infusion Insulin Pump 1 each 06/17/20 16:30 06/18/20 12:00 Subcutaneous Insulin Pump SUBCUT 1 each QIDACHS [facility] Administration Levothyroxine Sodium 200 mcg 06/14/20 09:00 06/18/20 06:05 Levothyroxine Sodium 200 Mcg Tablet PO 200 mcg DAILY@0630 [facility] Administration Pharmacy Consult 1 each 06/17/20 15:14 Consult Rx Vancomycin Dosing MISCELLANE DAILY PRN Consult order Pravastatin Sodium 20 mg 06/13/20 09:00 06/18/20 08:12 Pravastatin Sodium 20 Mg Tablet PO 20 mg DAILY [facility] Administration Pregabalin 150 mg 06/13/20 09:00 06/18/20 14:48 Pregabalin 150 Mg Capsule PO 150 mg TID [facility] Administration Tizanidine HCl 4 mg 06/14/20 09:00 06/18/20 08:12 Tizanidine Hcl 4 Mg Tablet PO 4 mg Q8H [facility] Administration Labs CBC & Chem 7: 06/17/20 06:28 06/17/20 06:28 Microbiology Microbiology Results: Microbiology 06/13/20 12:29 Blood - Venous Blood Culture - Final No growth after 5 days. 06/13/20 12:43 Blood - Venous Blood Culture - Final No growth after 5 days. 06/14/20 18:20 Urine clean catch - Dowell Catheter Urine Culture - Final No growth. Assessment and Plan (1) Hyperglycemia due to type 2 diabetes mellitus: Status: Acute (2) Bacteremia: Status: Acute Assessment and Plan: 54yo M with DM2 on insulin pump complicated by neuropathy + nephropathy, pancreatitis s/p partial pancreatectomy, HTN, HLD, depression, hypothyroidism, and chronic low back pain s/p lumbar laminectomy and recent (06/05) intrathecal hydromorphone pump placed here at [facility] Presented to [facility] ED 06/11 with lethargy after insulin pump malfunction, nausea and vomiting; took only 1d of prescribed postoperative cephalexin Found to be obtunded and hypotensive, in DKA [glu 1440, AG 46, pH 7.15] and MARVIN [SCr 4.5]; fluid-resuscitated and started on insulin drip Transferred to [facility] ED, ICU consulted and deferred admission given improvement in mental status and labs; patient admitted to [facility], where he got 3 doses of naloxone due to suspected opioid overdose Started on vancomycin + piperacillin/tazobactam for suspected sepsis and 1/2 BCx are now positive for GPCs, suspected Enterococcus by PCR Transferred to [facility] ICU 06/12 or management of the intrathecal pain pump by Dr Ferrell as no similar service was available at [facility] Stepped down to [facility] 06/13 Enterococcus bacteremia. -03/02 bottles at [facility] are positive for Enteroccous faecealis. -continue vancomycin (started 06/17), trough due in am -ID following -Repeat blood cx negative -Picc line placed 06/17 Intrathecal medication pump/Chronic pain -Lumbar spine MRI showing no abscess -continue pregabalin, tizanidine -will need dye study prior to resuming meds through pump, Dr. Ferrell hopeful that can be done tomorrow -will increase oral meds for now DM2 with hyperglycemia, A1c 9.8, insulin pump malfunction DKA, resolved - Lantus + Humalog - insulin pump delivered while inpatient HTN BP uncontrolled, pain likely playing a role -will Resume lisinopril MARVIN. REsolved hyperNa. resolved hyperlipasemia - suspect due to DKA + MARVIN, not pancreatitis HLD - continue statin Thrombocytoepnia monitor Hypothyroidism Continue Synthroid VTE ppx - SCDs Full Code
[2020-06-18 20:15] LABS: Glucose, Whole Blood 159 mg/dL (60-115)
[2020-06-18] MEDS: lisinopriL 10 MG TABLET PO (21:35)
[2020-06-19] VITALS (8 sets, daily range): BP systolic 112–151; BP diastolic 58–86; PULSE 75–97; RESP 12–20; TEMP 36.2–37.1; O2SAT 94–97
[2020-06-19 05:30] LABS: Vancomycin Trough 14.7 mcg/mL (10.0-20.0)
[2020-06-19] MEDS: Levothyroxine Sodium 200 MCG TABLET PO (05:59)
[2020-06-19] MEDS: vancomycin HCL 1,500 MG in 0.9 % Sodium Chloride 500 ML 333 MG IV (06:01)
[2020-06-19 07:17] LABS: Glucose, Whole Blood 162 mg/dL (60-115)
[2020-06-19] MEDS: Subcutaneous Insulin Pump 1 EACH SUBCUT ×2 (07:48→16:37)
[2020-06-19 08:42] LABS: Anion Gap 12 (12-20); Blood Urea Nitrogen 8 mg/dL (9-16); Calcium 7.9 mg/dL (8.4-10.2); Carbon Dioxide 26 mmol/L (22-29); Chloride 103 mmol/L (96-108); Estimated Glomerular Filt Rate > 60; Glucose Random 272 mg/dL (60-115); Potassium 4.4 mmol/L (3.3-5.1); Sodium 137 mmol/L (135-145)
[2020-06-19] MEDS: TiZANidine HCL 4 MG TABLET PO ×2 (08:57→16:36)
[2020-06-19] MEDS: Pregabalin 150 MG CAPSULE PO ×3 (08:57→20:04)
[2020-06-19] MEDS: Pravastatin Sodium 20 MG TABLET PO (08:58)
[2020-06-19] MEDS: lisinopriL 10 MG TABLET PO (08:58)
[2020-06-19 10:43] LABS: Glucose, Whole Blood 276 mg/dL (60-115)
--- NOTE | 2020-06-19 10:55 | HO.ANESPROP2 ---
[facility] Active Problems Active Problems: All Active Problems (Updated 06/14/20 @ 15:26 by Paloma Hutton MD) Hyperglycemia due to type 2 diabetes mellitus (Acute) Acute kidney failure (Acute) Bacteremia (Acute) Chronic, continuous use of opioids (Acute) Chronic pain syndrome (Acute) Past Medical History Medical History Chronic pain syndrome Chronic, continuous use of opioids Cubital tunnel syndrome on right Depression Diabetic neuropathy Fusion of lumbar spine HLD (hyperlipidemia) Hypothyroid Left carpal tunnel syndrome Lumbar post-laminectomy syndrome Type 1 diabetes mellitus Surgical History Surgical History H/O decompression of ulnar nerve H/O exploratory laparotomy H/O parathyroidectomy S/P lumbar fusion Social History Social History Household Members: Family Household Members Other:: Son, Daughter in law, 4 grandchildren Housing: House Do you presently have visiting nurse or other home services: No Smoking Status: Never smoker Second Hand Smoke Exposure: No Use of substances other than those prescribed or required for medical reasons: No Currently Displaying Signs/Symptoms of Drug Intoxication Withdrawal: No Have you been hit, kicked, punched, or otherwise hurt by someone within the past year? If so, by whom?: No Do you feel safe in your current relationship?: Yes Is there a partner from a previous relationship who is making you feel unsafe now?: No Are you made to feel afraid or neglected: No Advance Directives: Yes Advance Directives on File: Yes Advance Directives Date on File: 06/05/20 Do you have thoughts of harming others: None Do you have a plan to hurt others: No Plan Recently lost weight without trying: No Meds Allergies Allergy/AdvReac Type Severity Reaction Status Date / Time onions Allergy Severe Vomiting Uncoded 06/05/20 08:19 Active Medications: Current Medications Generic Name Dose Route Start Last Admin Trade Name Freq PRN Reason Stop Dose Admin Hydrocodone Bitart/Acetaminophen 1 tab 06/18/20 17:31 06/19/20 05:59 Hydrocodone Bit/Acetam 10/325 Tablet PO 1 tab Q4H PRN Administration Pain, Severe (Pain Scale 7-10) Aspirin 81 mg 06/13/20 09:00 06/19/20 08:59 Aspirin Enteric Coated 81 Mg Tablet. PO Not Given DAILY FORMERLY [facility], [facility] Vancomycin HCl 1,250 mg/ 250 mls @ 166.667 mls/hr 06/19/20 18:00 Sodium Chloride IV Q12H [facility], [facility]–1983 Insulin Pump 1 each 06/17/20 16:30 06/19/20 07:48 Subcutaneous Insulin Pump SUBCUT 1 each QIDACHS FOR[facility]LY [facility], [facility]–1983 Administration Levothyroxine Sodium 200 mcg 06/14/20 09:00 06/19/20 05:59 Levothyroxine Sodium 200 Mcg Tablet PO 200 mcg DAILY@0630 FOR[facility] Administration Lisinopril 10 mg 06/18/20 17:40 06/19/20 08:58 Lisinopril 10 Mg Tablet PO 10 mg DAILY [facility] Administration Protocol Pharmacy Consult 1 each 06/17/20 15:14 Consult Rx Vancomycin Dosing MISCELLANE DAILY PRN Consult order Pravastatin Sodium 20 mg 06/13/20 09:00 06/19/20 08:58 Pravastatin Sodium 20 Mg Tablet PO 20 mg DAILY EDWARD Administration Pregabalin 150 mg 06/13/20 09:00 06/19/20 08:57 Pregabalin 150 Mg Capsule PO 150 mg TID FOR[facility]1983 Administration Tizanidine HCl 4 mg 06/14/20 09:00 06/19/20 08:57 Tizanidine Hcl 4 Mg Tablet PO 4 mg Q8H EDWARD Administration Home Medications Medication Instructions Recorded Confirmed Last Taken Type blood sugar diagnostic #10 ea 11/30/19 04/27/20 Unknown History insulin aspart U-100 100 unit/mL 0 - 110 unit SUBCUT DAILY 11/30/19 06/12/20 Unknown History subcutaneous solution levothyroxine 200 mcg tablet 200 mcg PO DAILY@0630 11/30/19 06/14/20 Unknown History pravastatin 20 mg tablet 20 mg PO DAILY 11/30/19 06/12/20 Unknown History pregabalin 150 mg capsule 150 mg PO TID 11/30/19 06/12/20 Unknown History tizanidine 4 mg tablet 4 mg PO Q8H 11/30/19 06/12/20 Unknown History aspirin 81 mg tablet,delayed 81 mg PO DAILY 12/04/19 06/12/20 05/28/20 20:00 History release lisinopril 1 tab PO DAILY 06/05/20 06/12/20 06/05/20 05:15 History Exam Exam Date and Time: June 19, 2020 1055 Height,Weight and Vital Signs: Height 5 ft 9 in Weight 111.9 kg Last Vital Signs Temp 97.5 F 06/19/20 10:18 Pulse 87 06/19/20 10:18 Resp 18 06/19/20 10:18 BP 113/62 06/19/20 10:18 Pulse Ox 96 06/19/20 10:18 Pertinent Lab Results Pertinent Lab Results: Laboratory Tests 06/12/20 06/12/20 06/12/20 18:05 19:14 19:40 WBC 11.0 H RBC 3.53 L Hgb 10.9 L Hct 31.8 L MCV 90.1 MCH 30.9 MCHC 34.3 RDW 13.4 Plt Count 117 L MPV 9.1 L Immature Gran % (Auto) 0.4 Neut % (Auto) 88.6 H Lymph % (Auto) 5.4 L Cotton % (Auto) 5.4 Eos % (Auto) 0.1 Baso % (Auto) 0.1 Lymph # (Auto) 0.6 L Cotton # (Auto) 0.6 Eos # (Auto) 0.0 Baso # (Auto) 0.0 Abs Immat Gran (auto) 0.04 H Absolute Neuts (auto) 9.8 H Absolute Nucleated RBC 0.000 Nucleated RBC % (auto) 0.0 Smear Tech's Comments VERIFIED Sodium Potassium Chloride Carbon Dioxide Anion Gap BUN Creatinine Estim Creat Clear Calc Estimated GFR POC Glucose 168 H 257 H Random Glucose Estimat Average Glucose Hemoglobin A1c % Lactic Acid Calcium Phosphorus Magnesium Total Bilirubin Direct Bilirubin AST ALT Alkaline Phosphatase C-Reactive Protein Total Protein Albumin Lipase Procalcitonin Urine Color Urine Appearance Urine pH Ur Specific [place] Urine Protein Urine Glucose (UA) Urine Ketones Urine Blood Urine Nitrite Ur Leukocyte Esterase Urine RBC Urine WBC Ur Squamous Epith Cells Uric Acid Crystals Urine Bacteria Vancomycin Trough COVID-19 ([facility]) COVID-19 Clin Com 06/12/20 06/12/20 06/12/20 19:40 21:01 22:45 WBC RBC Hgb Hct MCV MCH MCHC RDW Plt Count MPV Immature Gran % (Auto) Neut % (Auto) Lymph % (Auto) Cotton % (Auto) Eos % (Auto) Baso % (Auto) Lymph # (Auto) Cotton # (Auto) Eos # (Auto) Baso # (Auto) Abs Immat Gran (auto) Absolute Neuts (auto) Absolute Nucleated RBC Nucleated RBC % (auto) Smear Tech's Comments Sodium 150 H Potassium 5.0 Chloride 112 H Carbon Dioxide 26 Anion Gap 17 BUN 80 H* Creatinine 2.22 H Estim Creat Clear Calc 46.1 Estimated GFR 31 POC Glucose 359 H* 382 H* Random Glucose 367 H* Estimat Average Glucose Hemoglobin A1c % Lactic Acid Calcium 8.3 L Phosphorus 2.1 L Magnesium 2.8 H Total Bilirubin 0.4 Direct Bilirubin AST 26 ALT 20 Alkaline Phosphatase 135 H C-Reactive Protein 4.60 H Total Protein 5.6 L Albumin 3.4 L Lipase 292 H Procalcitonin Urine Color Urine Appearance Urine pH Ur Specific [place] Urine Protein Urine Glucose (UA) Urine Ketones Urine Blood Urine Nitrite Ur Leukocyte Esterase Urine RBC Urine WBC Ur Squamous Epith Cells Uric Acid Crystals Urine Bacteria Vancomycin Trough COVID-19 ([facility]) COVID-19 Clin Com 06/13/20 06/13/20 06/13/20 00:55 00:55 00:55 WBC 10.4 RBC 3.62 L Hgb 11.4 L Hct 32.7 L MCV 90.3 MCH 31.5 MCHC 34.9 RDW 13.3 Plt Count 128 L MPV 10.0 Immature Gran % (Auto) 0.4 Neut % (Auto) 89.5 H Lymph % (Auto) 5.8 L Cotton % (Auto) 4.2 Eos % (Auto) 0.1 Baso % (Auto) 0.0 Lymph # (Auto) 0.6 L Cotton # (Auto) 0.4 Eos # (Auto) 0.0 Baso # (Auto) 0.0 Abs Immat Gran (auto) 0.04 H Absolute Neuts (auto) 9.3 H Absolute Nucleated RBC 0.000 Nucleated RBC % (auto) 0.0 Smear Tech's Comments Sodium 151 H Potassium 4.8 Chloride 112 H Carbon Dioxide 27 Anion Gap 17 BUN 75 H Creatinine 2.12 H Estim Creat Clear Calc 48.3 Estimated GFR 32 POC Glucose Random Glucose 431 H* Estimat Average Glucose Hemoglobin A1c % Lactic Acid 0.8 Calcium 8.7 Phosphorus Magnesium Total Bilirubin Direct Bilirubin AST ALT Alkaline Phosphatase C-Reactive Protein Total Protein Albumin Lipase Procalcitonin Urine Color Urine Appearance Urine pH Ur Specific [place] Urine Protein Urine Glucose (UA) Urine Ketones Urine Blood Urine Nitrite Ur Leukocyte Esterase Urine RBC Urine WBC Ur Squamous Epith Cells Uric Acid Crystals Urine Bacteria Vancomycin Trough COVID-19 ([facility]) COVID-19 [employer] 06/13/20 06/13/20 06/13/20 08:08 12:36 12:39 WBC RBC Hgb Hct MCV MCH MCHC RDW Plt Count MPV Immature Gran % (Auto) Neut % (Auto) Lymph % (Auto) Cotton % (Auto) Eos % (Auto) Baso % (Auto) Lymph # (Auto) Cotton # (Auto) Eos # (Auto) Baso # (Auto) Abs Immat Gran (auto) Absolute Neuts (auto) Absolute Nucleated RBC Nucleated RBC % (auto) Smear Tech's Comments Sodium Potassium Chloride Carbon Dioxide Anion Gap BUN Creatinine Estim Creat Clear Calc Estimated GFR POC Glucose 344 H 369 H* Random Glucose Estimat Average Glucose 235 Hemoglobin A1c % 9.8 Lactic Acid Calcium Phosphorus Magnesium Total Bilirubin Direct Bilirubin AST ALT Alkaline Phosphatase C-Reactive Protein Total Protein Albumin Lipase Procalcitonin Urine Color Urine Appearance Urine pH Ur Specific [place] Urine Protein Urine Glucose (UA) Urine Ketones Urine Blood Urine Nitrite Ur Leukocyte Esterase Urine RBC Urine WBC Ur Squamous Epith Cells Uric Acid Crystals Urine Bacteria Vancomycin Trough COVID-19 ([facility]) COVID-19 [employer] 06/13/20 06/13/20 06/13/20 12:39 12:39 16:12 WBC RBC Hgb Hct MCV MCH MCHC RDW Plt Count MPV Immature Gran % (Auto) Neut % (Auto) Lymph % (Auto) Cotton % (Auto) Eos % (Auto) Baso % (Auto) Lymph # (Auto) Cotton # (Auto) Eos # (Auto) Baso # (Auto) Abs Immat Gran (auto) Absolute Neuts (auto) Absolute Nucleated RBC Nucleated RBC % (auto) Smear Tech's Comments Sodium 151 H Potassium 4.3 Chloride 112 H Carbon Dioxide 25 Anion Gap 18 BUN 62 H Creatinine 1.79 H Estim Creat Clear Calc 56.8 Estimated GFR 39 POC Glucose 261 H Random Glucose 387 H* Estimat Average Glucose Hemoglobin A1c % Lactic Acid Calcium 8.3 L Phosphorus 1.7 L Magnesium 2.9 H Total Bilirubin Direct Bilirubin AST ALT Alkaline Phosphatase C-Reactive Protein Total Protein Albumin Lipase Procalcitonin 0.20 Urine Color Urine Appearance Urine pH Ur Specific [place] Urine Protein Urine Glucose (UA) Urine Ketones Urine Blood Urine Nitrite Ur Leukocyte Esterase Urine RBC Urine WBC Ur Squamous Epith Cells Uric Acid Crystals Urine Bacteria Vancomycin Trough COVID-19 ([facility]) COVID-19 Clin Com 06/13/20 06/14/20 06/14/20 19:58 06:18 06:18 WBC 6.5 RBC 3.65 L Hgb 11.2 L Hct 33.0 L MCV 90.4 MCH 30.7 MCHC 33.9 RDW 12.6 Plt Count 100 L MPV 9.4 Immature Gran % (Auto) 0.5 H Neut % (Auto) 77.2 H Lymph % (Auto) 13.6 L Cotton % (Auto) 7.2 Eos % (Auto) 1.5 Baso % (Auto) 0.0 Lymph # (Auto) 0.9 L Cotton # (Auto) 0.5 Eos # (Auto) 0.1 Baso # (Auto) 0.0 Abs Immat Gran (auto) 0.03 Absolute Neuts (auto) 5.0 Absolute Nucleated RBC 0.000 Nucleated RBC % (auto) 0.0 Smear Tech's Comments Sodium 144 Potassium 3.9 Chloride 105 Carbon Dioxide 30 H Anion Gap 13 BUN 40 H Creatinine 1.21 Estim Creat Clear Calc 84.0 Estimated GFR > 60 POC Glucose 247 H Random Glucose 270 H Estimat Average Glucose Hemoglobin A1c % Lactic Acid Calcium 7.6 L D Phosphorus 1.1 L Magnesium Total Bilirubin 0.7 Direct Bilirubin 0.3 AST 21 ALT 21 Alkaline Phosphatase 131 H C-Reactive Protein Total Protein 5.7 L Albumin 3.4 L Lipase Procalcitonin Urine Color Urine Appearance Urine pH Ur Specific [place] Urine Protein Urine Glucose (UA) Urine Ketones Urine Blood Urine Nitrite Ur Leukocyte Esterase Urine RBC Urine WBC Ur Squamous Epith Cells Uric Acid Crystals Urine Bacteria Vancomycin Trough COVID-19 ([facility]) COVID-19 Clin Com 06/14/20 06/14/20 06/14/20 06:18 07:28 11:04 WBC RBC Hgb Hct MCV MCH MCHC RDW Plt Count MPV Immature Gran % (Auto) Neut % (Auto) Lymph % (Auto) Cotton % (Auto) Eos % (Auto) Baso % (Auto) Lymph # (Auto) Cotton # (Auto) Eos # (Auto) Baso # (Auto) Abs Immat Gran (auto) Absolute Neuts (auto) Absolute Nucleated RBC Nucleated RBC % (auto) Smear Tech's Comments Sodium Potassium Chloride Carbon Dioxide Anion Gap BUN Creatinine Estim Creat Clear Calc Estimated GFR POC Glucose 249 H 270 H Random Glucose Estimat Average Glucose Hemoglobin A1c % Lactic Acid Calcium Phosphorus Magnesium Total Bilirubin Direct Bilirubin AST ALT Alkaline Phosphatase C-Reactive Protein Total Protein Albumin Lipase 209 H Procalcitonin Urine Color Urine Appearance Urine pH Ur Specific [place] Urine Protein Urine Glucose (UA) Urine Ketones Urine Blood Urine Nitrite Ur Leukocyte Esterase Urine RBC Urine WBC Ur Squamous Epith Cells Uric Acid Crystals Urine Bacteria Vancomycin Trough COVID-19 ([facility]) COVID-19 [employer] 06/14/20 06/14/20 06/14/20 15:53 18:20 19:43 WBC RBC Hgb Hct MCV MCH MCHC RDW Plt Count MPV Immature Gran % (Auto) Neut % (Auto) Lymph % (Auto) Cotton % (Auto) Eos % (Auto) Baso % (Auto) Lymph # (Auto) Cotton # (Auto) Eos # (Auto) Baso # (Auto) Abs Immat Gran (auto) Absolute Neuts (auto) Absolute Nucleated RBC Nucleated RBC % (auto) Smear Tech's Comments Sodium Potassium Chloride Carbon Dioxide Anion Gap BUN Creatinine Estim Creat Clear Calc Estimated GFR POC Glucose 256 H 205 H Random Glucose Estimat Average Glucose Hemoglobin A1c % Lactic Acid Calcium Phosphorus Magnesium Total Bilirubin Direct Bilirubin AST ALT Alkaline Phosphatase C-Reactive Protein Total Protein Albumin Lipase Procalcitonin Urine Color YELLOW Urine Appearance TURBID Urine pH 6.0 Ur Specific [place] 1.010 Urine Protein NEG Urine Glucose (UA) >=1000 H Urine Ketones NEG Urine Blood 3+ H Urine Nitrite NEG Ur Leukocyte Esterase NEG Urine RBC 15-29 H Urine WBC 0-2 Ur Squamous Epith Cells 1+ Uric Acid Crystals 4+ Urine Bacteria NONE Vancomycin Trough COVID-19 ([facility]) COVID-19 [employer] 06/15/20 06/15/20 06/15/20 05:42 07:10 08:15 WBC 6.9 RBC 3.58 L Hgb 11.1 L Hct 31.3 L MCV 87.4 MCH 31.0 MCHC 35.5 RDW 12.3 Plt Count 84 L MPV 9.7 Immature Gran % (Auto) Neut % (Auto) Lymph % (Auto) Cotton % (Auto) Eos % (Auto) Baso % (Auto) Lymph # (Auto) Cotton # (Auto) Eos # (Auto) Baso # (Auto) Abs Immat Gran (auto) Absolute Neuts (auto) Absolute Nucleated RBC 0.000 Nucleated RBC % (auto) 0.0 Smear Tech's Comments Sodium 140 Potassium 3.7 Chloride 103 Carbon Dioxide 28 Anion Gap 13 BUN 25 H Creatinine 0.92 Estim Creat Clear Calc 110.5 Estimated GFR > 60 POC Glucose 158 H Random Glucose 172 H D Estimat Average Glucose Hemoglobin A1c % Lactic Acid Calcium 7.3 L Phosphorus 1.4 L Magnesium Total Bilirubin Direct Bilirubin AST ALT Alkaline Phosphatase C-Reactive Protein Total Protein Albumin Lipase Procalcitonin Urine Color Urine Appearance Urine pH Ur Specific [place] Urine Protein Urine Glucose (UA) Urine Ketones Urine Blood Urine Nitrite Ur Leukocyte Esterase Urine RBC Urine WBC Ur Squamous Epith Cells Uric Acid Crystals Urine Bacteria Vancomycin Trough COVID-19 ([facility]) COVID-19 [employer] 06/15/20 06/15/20 06/15/20 08:15 11:03 16:32 WBC RBC Hgb Hct MCV MCH MCHC RDW Plt Count MPV Immature Gran % (Auto) Neut % (Auto) Lymph % (Auto) Cotton % (Auto) Eos % (Auto) Baso % (Auto) Lymph # (Auto) Cotton # (Auto) Eos # (Auto) Baso # (Auto) Abs Immat Gran (auto) Absolute Neuts (auto) Absolute Nucleated RBC Nucleated RBC % (auto) Smear Tech's Comments Sodium 140 Potassium 3.7 Chloride 103 Carbon Dioxide 31 H Anion Gap 10 L BUN 22 H Creatinine 0.90 Estim Creat Clear Calc 113.0 Estimated GFR > 60 POC Glucose 149 H 259 H Random Glucose 157 H Estimat Average Glucose Hemoglobin A1c % Lactic Acid Calcium 7.4 L Phosphorus Magnesium Total Bilirubin Direct Bilirubin AST ALT Alkaline Phosphatase C-Reactive Protein Total Protein Albumin Lipase Procalcitonin Urine Color Urine Appearance Urine pH Ur Specific [place] Urine Protein Urine Glucose (UA) Urine Ketones Urine Blood Urine Nitrite Ur Leukocyte Esterase Urine RBC Urine WBC Ur Squamous Epith Cells Uric Acid Crystals Urine Bacteria Vancomycin Trough COVID-19 ([facility]) COVID-19 [employer] 06/15/20 06/16/20 06/16/20 21:03 06:49 11:02 WBC RBC Hgb Hct MCV MCH MCHC RDW Plt Count MPV Immature Gran % (Auto) Neut % (Auto) Lymph % (Auto) Cotton % (Auto) Eos % (Auto) Baso % (Auto) Lymph # (Auto) Cotton # (Auto) Eos # (Auto) Baso # (Auto) Abs Immat Gran (auto) Absolute Neuts (auto) Absolute Nucleated RBC Nucleated RBC % (auto) Smear Tech's Comments Sodium Potassium Chloride Carbon Dioxide Anion Gap BUN Creatinine Estim Creat Clear Calc Estimated GFR POC Glucose 280 H 234 H 291 H Random Glucose Estimat Average Glucose Hemoglobin A1c % Lactic Acid Calcium Phosphorus Magnesium Total Bilirubin Direct Bilirubin AST ALT Alkaline Phosphatase C-Reactive Protein Total Protein Albumin Lipase Procalcitonin Urine Color Urine Appearance Urine pH Ur Specific [place] Urine Protein Urine Glucose (UA) Urine Ketones Urine Blood Urine Nitrite Ur Leukocyte Esterase Urine RBC Urine WBC Ur Squamous Epith Cells Uric Acid Crystals Urine Bacteria Vancomycin Trough COVID-19 ([facility]) COVID-19 [employer] 06/16/20 06/16/20 06/16/20 16:13 18:29 21:45 WBC RBC Hgb Hct MCV MCH MCHC RDW Plt Count MPV Immature Gran % (Auto) Neut % (Auto) Lymph % (Auto) Cotton % (Auto) Eos % (Auto) Baso % (Auto) Lymph # (Auto) Cotton # (Auto) Eos # (Auto) Baso # (Auto) Abs Immat Gran (auto) Absolute Neuts (auto) Absolute Nucleated RBC Nucleated RBC % (auto) Smear Tech's Comments Sodium Potassium Chloride Carbon Dioxide Anion Gap BUN Creatinine Estim Creat Clear Calc Estimated GFR POC Glucose 292 H 170 H Random Glucose Estimat Average Glucose Hemoglobin A1c % Lactic Acid Calcium Phosphorus Magnesium Total Bilirubin Direct Bilirubin AST ALT Alkaline Phosphatase C-Reactive Protein Total Protein Albumin Lipase Procalcitonin Urine Color Urine Appearance Urine pH Ur Specific [place] Urine Protein Urine Glucose (UA) Urine Ketones Urine Blood Urine Nitrite Ur Leukocyte Esterase Urine RBC Urine WBC Ur Squamous Epith Cells Uric Acid Crystals Urine Bacteria Vancomycin Trough COVID-19 ([facility]) Negative COVID-19 [employer] See Note 06/17/20 06/17/20 06/17/20 06:28 06:28 07:01 WBC 11.6 H RBC 3.92 L Hgb 12.3 L Hct 34.9 L MCV 89.0 MCH 31.4 MCHC 35.2 RDW 13.1 Plt Count 117 L D MPV 9.5 Immature Gran % (Auto) Neut % (Auto) Lymph % (Auto) Cotton % (Auto) Eos % (Auto) Baso % (Auto) Lymph # (Auto) Cotton # (Auto) Eos # (Auto) Baso # (Auto) Abs Immat Gran (auto) Absolute Neuts (auto) Absolute Nucleated RBC 0.000 Nucleated RBC % (auto) 0.0 Smear Tech's Comments Sodium 138 Potassium 3.9 Chloride 101 Carbon Dioxide 28 Anion Gap 13 BUN 12 Creatinine 0.92 Estim Creat Clear Calc 110.5 Estimated GFR > 60 POC Glucose 228 H Random Glucose 209 H Estimat Average Glucose Hemoglobin A1c % Lactic Acid Calcium 8.1 L D Phosphorus Magnesium Total Bilirubin Direct Bilirubin AST ALT Alkaline Phosphatase C-Reactive Protein Total Protein Albumin Lipase Procalcitonin Urine Color Urine Appearance Urine pH Ur Specific [place] Urine Protein Urine Glucose (UA) Urine Ketones Urine Blood Urine Nitrite Ur Leukocyte Esterase Urine RBC Urine WBC Ur Squamous Epith Cells Uric Acid Crystals Urine Bacteria Vancomycin Trough COVID-19 ([facility]) COVID-19 [employer] 06/17/20 06/17/20 06/17/20 10:51 16:41 20:17 WBC RBC Hgb Hct MCV MCH MCHC RDW Plt Count MPV Immature Gran % (Auto) Neut % (Auto) Lymph % (Auto) Cotton % (Auto) Eos % (Auto) Baso % (Auto) Lymph # (Auto) Cotton # (Auto) Eos # (Auto) Baso # (Auto) Abs Immat Gran (auto) Absolute Neuts (auto) Absolute Nucleated RBC Nucleated RBC % (auto) Smear Tech's Comments Sodium Potassium Chloride Carbon Dioxide Anion Gap BUN Creatinine Estim Creat Clear Calc Estimated GFR POC Glucose 273 H 286 H 211 H Random Glucose Estimat Average Glucose Hemoglobin A1c % Lactic Acid Calcium Phosphorus Magnesium Total Bilirubin Direct Bilirubin AST ALT Alkaline Phosphatase C-Reactive Protein Total Protein Albumin Lipase Procalcitonin Urine Color Urine Appearance Urine pH Ur Specific [place] Urine Protein Urine Glucose (UA) Urine Ketones Urine Blood Urine Nitrite Ur Leukocyte Esterase Urine RBC Urine WBC Ur Squamous Epith Cells Uric Acid Crystals Urine Bacteria Vancomycin Trough COVID-19 ([facility]) COVID-19 [employer] 06/18/20 06/18/20 06/18/20 07:31 11:29 16:23 WBC RBC Hgb Hct MCV MCH MCHC RDW Plt Count MPV Immature Gran % (Auto) Neut % (Auto) Lymph % (Auto) Cotton % (Auto) Eos % (Auto) Baso % (Auto) Lymph # (Auto) Cotton # (Auto) Eos # (Auto) Baso # (Auto) Abs Immat Gran (auto) Absolute Neuts (auto) Absolute Nucleated RBC Nucleated RBC % (auto) Smear Tech's Comments Sodium Potassium Chloride Carbon Dioxide Anion Gap BUN Creatinine Estim Creat Clear Calc Estimated GFR POC Glucose 152 H 190 H 138 H Random Glucose Estimat Average Glucose Hemoglobin A1c % Lactic Acid Calcium Phosphorus Magnesium Total Bilirubin Direct Bilirubin AST ALT Alkaline Phosphatase C-Reactive Protein Total Protein Albumin Lipase Procalcitonin Urine Color Urine Appearance Urine pH Ur Specific [place] Urine Protein Urine Glucose (UA) Urine Ketones Urine Blood Urine Nitrite Ur Leukocyte Esterase Urine RBC Urine WBC Ur Squamous Epith Cells Uric Acid Crystals Urine Bacteria Vancomycin Trough COVID-19 ([facility]) [employer] 06/18/20 06/19/20 06/19/20 20:10 04:48 07:12 WBC RBC Hgb Hct MCV MCH MCHC RDW Plt Count MPV Immature Gran % (Auto) Neut % (Auto) Lymph % (Auto) Cotton % (Auto) Eos % (Auto) Baso % (Auto) Lymph # (Auto) Cotton # (Auto) Eos # (Auto) Baso # (Auto) Abs Immat Gran (auto) Absolute Neuts (auto) Absolute Nucleated RBC Nucleated RBC % (auto) Smear Tech's Comments Sodium Potassium Chloride Carbon Dioxide Anion Gap BUN Creatinine Estim Creat Clear Calc Estimated GFR POC Glucose 159 H 162 H Random Glucose Estimat Average Glucose Hemoglobin A1c % Lactic Acid Calcium Phosphorus Magnesium Total Bilirubin Direct Bilirubin AST ALT Alkaline Phosphatase C-Reactive Protein Total Protein Albumin Lipase Procalcitonin Urine Color Urine Appearance Urine pH Ur Specific [place] Urine Protein Urine Glucose (UA) Urine Ketones Urine Blood Urine Nitrite Ur Leukocyte Esterase Urine RBC Urine WBC Ur Squamous Epith Cells Uric Acid Crystals Urine Bacteria Vancomycin Trough 14.7 COVID-19 ([facility]) [employer] 06/19/20 06/19/20 08:04 10:38 WBC RBC Hgb Hct MCV MCH MCHC RDW Plt Count MPV Immature Gran % (Auto) Neut % (Auto) Lymph % (Auto) Cotton % (Auto) Eos % (Auto) Baso % (Auto) Lymph # (Auto) Cotton # (Auto) Eos # (Auto) Baso # (Auto) Abs Immat Gran (auto) Absolute Neuts (auto) Absolute Nucleated RBC Nucleated RBC % (auto) Smear Tech's Comments Sodium 137 Potassium 4.4 Chloride 103 Carbon Dioxide 26 Anion Gap 12 BUN 8 L Creatinine 0.82 Estim Creat Clear Calc 124.0 Estimated GFR > 60 POC Glucose 276 H Random Glucose 272 H Estimat Average Glucose Hemoglobin A1c % Lactic Acid Calcium 7.9 L Phosphorus Magnesium Total Bilirubin Direct Bilirubin AST ALT Alkaline Phosphatase C-Reactive Protein Total Protein Albumin Lipase Procalcitonin Urine Color Urine Appearance Urine pH Ur Specific [place] Urine Protein Urine Glucose (UA) Urine Ketones Urine Blood Urine Nitrite Ur Leukocyte Esterase Urine RBC Urine WBC Ur Squamous Epith Cells Uric Acid Crystals Urine Bacteria Vancomycin Trough COVID-19 ([facility]) COVID-19 Clin Com Airway Mallampati Class: II TM Dist: >3cm Neck ROM: Full Denture: Upper
[2020-06-19] MEDS: 0.9 % Sodium Chloride 1,000 ML 50 ML IVCONT (11:02)
--- NOTE | 2020-06-19 11:06 | P.DS_ITS ---
DS: Providers Provider Date of Service: 06/19/20 Date of admission: 06/12/20 17:59 Primary care physician: Unknown Physician Consults: 06/13/20 14:10 Consult to Infectious Diseases Routine Consulting Provider: Alejandra Thompson Reason for consultation: bacteremia- Enterococcus at [facility] 06/11/20, intrathecal pump in place DS: Diagnosis Discharge Diagnosis (1) DKA (diabetic ketoacidoses): Status: Acute (2) Bacteremia: Status: Acute (3) Hyperglycemia due to type 2 diabetes mellitus: Status: Acute (4) Chronic pain syndrome: Status: Acute (5) MARVIN (acute kidney injury): Status: Acute DS: Medications Discharge Medications Home Medications: Home Medications Medication Instructions Recorded Confirmed blood sugar diagnostic #10 ea 11/30/19 04/27/20 insulin aspart U-100 100 unit/mL 0 - 110 unit SUBCUT DAILY 11/30/19 06/12/20 subcutaneous solution levothyroxine 200 mcg tablet 200 mcg PO DAILY@0630 11/30/19 06/14/20 pravastatin 20 mg tablet 20 mg PO DAILY 11/30/19 06/12/20 pregabalin 150 mg capsule 150 mg PO TID 11/30/19 06/12/20 tizanidine 4 mg tablet 4 mg PO Q8H 11/30/19 06/12/20 aspirin 81 mg tablet,delayed 81 mg PO DAILY 12/04/19 06/12/20 release lisinopril 1 tab PO DAILY 06/05/20 06/12/20 Previous Rx's Medication Instructions Recorded gabapentin 600 mg tablet 600 mg PO TID #90 tab 02/12/20 tapentadol 100 mg tablet 100 mg PO Q8H PRN #90 tab 02/19/20 cephalexin 500 mg capsule 1,000 mg PO Q6H 14 Days #112 cap 06/05/20 vancomycin 1.25 g IV BID 35 Days ea 06/19/20 DS: Summary Hospital Course Hospital Course: 54yo M with DM2 on insulin pump complicated by neuropathy + nephropathy, pancreatitis s/p partial pancreatectomy, HTN, HLD, depression, hypothyroidism, and chronic low back pain s/p lumbar laminectomy and recent (06/05) intrathecal hydromorphone pump placed here at [facility]. Presented to [facility] ED 06/11 with lethargy after insulin pump malfunction, nausea and vomiting; took only 1d of prescribed postoperative cephalexin. Found to be obtunded and hypotensive, in DKA [glu 1440, AG 46, pH 7.15] and MARVIN [SCr 4.5]; fluid-resuscitated and started on insulin drip. Transfer[facility] [place] [facility], ICU consulted and deferred admission given improvement in mental status and labs; patient admitted to [facility], where he got 3 doses of naloxone due to suspected opioid overdose. Started on vancomycin + piperacillin/tazobactam for suspected sepsis and 02/28 BCx are now positive for GPCs, suspected Enterococcus by PCR. Transferred to [facility] ICU 06/12 or management of the pain pump by Dr Ferrell as no similar service was available at [facility]. Stepped [place] [facility] [place]13 Enteroccocus bacteremia. 03/[address] [facility] on 06/11 growing GPCs, identified as Enterococcus sp. He was seen in consultation by ID and was started on vancomycin. Lumbar/thoracic spine MRI showed no evidence of fluid collection/infection. PICC line was placed 06/17 and he will be discharged home with IV vancomycin to complete 6 week course. He will be discharged home with visiting nurses. He should have weekly BMP and vanco troughs followed. He should call to schedule an appointment with Dr. Thompson of Infectious Diseases. DKA - initial tretment at [facility]. Resolved by admission to [facility]. New insulin pump placed while inpatient and functioning well. Blood sugars controlled. Chronic pain. Lumbar spine MRI showed no evidence abscess. Patient underwent intrathecal dye study on day of discharge which showed proper function of pain pump and no extravasation of dye. Hydromorphone via pump was resumed. The patient was instructed to discontinue taking all oral narcotic/opiate medications including tapentadol (Nucynta). Patient is to follow-up Dr. Ferrell as outpatient in a week or sooner if any issues arise. Thromobcytopenia. remained stable during admission. should follow up with PCP for repeat CBC and determine need for ongoing use of aspirin. Time Spent with Patient Time attestation: Total time spent providing and/or coordinating discharge services: Discharge coordination time: Greater than 30 minutes Physical Exam Vital Signs: Vital Signs: Last Vital Signs Temp 97.5 F 06/19/20 10:18 Pulse 87 06/19/20 10:18 Resp 18 06/19/20 10:18 BP 113/62 06/19/20 10:18 Pulse Ox 96 06/19/20 10:18 Body Mass Index 36.4 Const: Nutritional Appearance: well nourished Orientation/consciousness: patient oriented x3 HENMT: Head: Yes normocephalic and Yes atraumatic Eyes: Sclerae: sclerae normal Resp: Effort & Inspection: normal respiratory effort and no respiratory distress Cardio: Rate: regular rate Rhythm: regular rhythm GI: Palpation (GI): Soft to palpation and nontender Neuro: General: patient oriented x3 Cranial nerves: Yes CN's II-XII intact bilaterally and Yes Bilaterally intact EOM present DS: Data Data Completed and Pending Labs on day of discharge: Laboratory Results - last 24 hr 06/18/20 06/18/20 06/18/20 11:29 16:23 20:10 Sodium Potassium Chloride Carbon Dioxide Anion Gap BUN Creatinine Estim Creat Clear Calc Estimated GFR POC Glucose 190 H 138 H 159 H Random Glucose Calcium Vancomycin Trough 06/19/20 06/19/20 06/19/20 04:48 07:12 08:04 Sodium 137 Potassium 4.4 Chloride 103 Carbon Dioxide 26 Anion Gap 12 BUN 8 L Creatinine 0.82 Estim Creat Clear Calc 124.0 Estimated GFR > 60 POC Glucose 162 H Random Glucose 272 H Calcium 7.9 L Vancomycin Trough 14.7 06/19/20 10:38 Sodium Potassium Chloride Carbon Dioxide Anion Gap BUN Creatinine Estim Creat Clear Calc Estimated GFR POC Glucose 276 H Random Glucose Calcium Vancomycin Trough Discharge Plan Discharge Patient Disposition: Home Health Service Discharge Diagnosis: DKA Referrals: [facility] [Other] - 1 Week Adolph Gaitan [Outside] - 1 Week Alejandra Thompson MD [Physician] - None Gomez Ferrell MD [Physician] - 1 Week Physician,Unknown [Primary Care Provider] - 1 Week Discharge Medications: New vancomycin 1.25 gram recon soln 1.25 g IV BID 35 Days RF: 0 Continued gabapentin 600 mg tablet 600 mg PO TID Qty: 90 RF: 0 lisinopril 10 mg tablet 1 tab PO DAILY RF: 0 levothyroxine 200 mcg tablet 200 mcg PO DAILY@0630 7 Days Qty: 7 RF: 0 aspirin 81 mg tablet,delayed release (DR/EC) 81 mg PO DAILY RF: 0 pregabalin 150 mg capsule 150 mg PO TID RF: 0 insulin aspart U-100 100 unit/mL solution 0 - 110 unit subcut DAILY RF: 0 tizanidine 4 mg tablet 4 mg PO Q8H RF: 0 pravastatin 20 mg tablet 20 mg PO DAILY RF: 0 Discontinued cephalexin 500 mg capsule 1,000 mg PO Q6H 14 Days Qty: 112 RF: 0 Nucynta 100 mg tablet 100 mg PO Q8H PRN (Reason: pain) Qty: 90 RF: 0 No Action (DME) OneTouch Verio test strips Strip See Rx Instructions ea Not Applicable .MEDSUPPLY Qty: 10 RF: 0 Discharge Orders: Discharge Order (Routine); Ordered 06/19/20 Ordered By: Barbara Vasquez Diet: advance to usual diet Activity on Discharge: As tolerated Stand Alone Forms: Patient Portal Discharge page Care Plan Goals: See below Health Concerns: Diabetes Bacteremia Chronic Pain Plan of Treatment: Diabetes - new insulin pump functioning, BS controlled. Please call to schedule an appointment to follow up with your PCP Chronic pain - pain pump functioning properly, follow up with Dr. Ferrell in 1 week or call the office sooner if there are any issues. Do not take any oral opiate/narcotic medications. Nucynta has been stopped as it is not safe to use in combination with pain pump. Bacteremia - home with visiting nursing to assist with vancomycin twice daily as prescribed; weekly BMP, vancomycin trough. Call to schedule a follow up appointment with Dr. Thompson Assessment: See discharge summary
--- NOTE | 2020-06-19 11:26 | MHC.SHP ---
Pre-Procedural Eval Section A The patient is an INPATIENT: No Changes since office visit: Yes Patient answered all questions The History & Physical has been completed within 30 days and I have reviewed it.: No Section B Chief Complaint: DKA Details of Present Illness: presence of ITDD, R/o catheter mulfunction. Relevant Family History (Specify if Yes): No Relevant Social History: None Present Medications: see Short Stay Collaborative assessment Medical History: No relevant PMH History of Previous Operations: Relevant previous surgery/procedure and date(s) (Implantation of I DDD S) Allergies: Allergies Allergy/AdvReac Type Severity Reaction Status Date / Time onions Allergy Severe Vomiting Uncoded 06/05/20 08:19 Review of Systems Sugical H&P ROS: Negative: Constitution, Cardiovascular, Respiratory, Neurological, Psychiatric, Hem-Onc, Allergic/Immunologic, Gastrointestinal, Genitourinary, Musculoskeletal, Integumentary, Endocrine and Eyes/Ears/Nose/Throat Exam Surgical H&P Exam: Normal: HEENT, Normal: Heart, Normal: Lungs, Normal: Extremities, Normal: Abdomen, Normal: Skin and Normal: Neurological Plan Diagnosis/Plan: Unchanged I have reviewed the history and physical and performed a pertinent physical examination on my patient. No changes have occurred unless specified.
--- NOTE | 2020-06-19 12:14 | PM.OP ---
Brief Operative Note Date of Service: 06/19/20 Pre-op diagnosis: Postlaminectomy syndrome. Presence of intrathecal drug delivery system pain pump. Post-op diagnosis: same Procedure: Dye study of the intrathecal catheter. Implants: None Surgeon: Gomez Ferrell MD Anesthesia: none Estimated blood loss (mL): 0 Pathology: none sent Condition: stable Disposition: PACU
--- NOTE | 2020-06-19 12:17 | W.PM.OPN ---
Operative Note Operative Note Date of Service: 06/19/20 Narrative: Narrative: Mr. Gibson is 54 years old gentleman who came today into the operating room for dye study of intrathecal drug delivery system pain pump to rule out extravasation of the pump content from the catheter. After obtaining informed consent patient was brought to the operating room, he was positioned prone on operating table, [employer] [place] [employer] monitors were applied and patient was not sedated. Anesthesia was on standby with naloxone syringe ready. Time-out was performed delineating correct site, side, the nature of the procedure, patient's allergy, preoperative antibiotic. All operating room staff was participating in OR time-out procedure. Patient's lower back was prepped with ChloraPrep twice and draped with fenestrated drape with opening where the location of the pump was. Sterilely draped C-arm was brought of the operating field and sq picture of the intrathecal pump was delineated on the screen. The side port of the pump was delineated on the screen. 25 gauge noncoring 2-1/2 inch needle was assembled with the 6 cc syringe and extension catheter and it was inserted in the projection of the side port of the pump. It was advanced into the side port of the pump under x-ray observation. When needle entered side port the clamp on the extension tubing was released and aspiration was made revealing 1 full cc of CSF without any discoloration or air bubbles. After that of knee pale 300 contrast was injected into the catheter a and the catheter was followed into the intrathecal space at the mid of T7 vertebra. The injection of the contrast demonstrated myelogram spread of the contrast and no extravasation of the contrast in the soft tissues or underneath the pump. For that purpose lateral view was made across the operating field. Therefore the conclusion is that the prompt with working appropriately and unlikely produce any symptoms of of opioid intoxication. The pump was re-programmed to deliver 80 micro grams hydromorphone a day. The jia were removed. Sterile dressing was applied.
[2020-06-19 16:28] LABS: Glucose, Whole Blood 351 mg/dL (60-115)
[2020-06-19] MEDS: 0.9 % Sodium Chloride Flush 10 ML SYRINGE 5 ML IVFLUSH (16:36)
[2020-06-19] MEDS: vancomycin HCL 1,250 MG in 0.9 % Sodium Chloride 250 ML 166.67 MG IV (18:14)
== END 2020-06-19 20:26 | disposition home health service (06) | DRG 682 ==
LOC: HO.ICU 18:01 → HO.IMC 06-13 05:16
PROVIDERS: Anesthesiology; Family Medicine; Nurse Practitioner Acute Care; Physician Assistant Medical; Admitting Provider Anesthesiology; Visit Provider Family Medicine
DX: N17.9 Acute kidney failure, unspecified (principal); J18.9 Pneumonia, unspecified organism; E87.0 Hyperosmolality and hypernatremia; R78.81 Bacteremia; G89.4 Chronic pain syndrome; Z98.1 Arthrodesis status; E11.65 Type 2 diabetes mellitus with hyperglycemia; E11.42 Type 2 diabetes mellitus with diabetic polyneuropathy; I10 Essential (primary) hypertension; E03.9 Hypothyroidism, unspecified; D69.6 Thrombocytopenia, unspecified; B95.2 Enterococcus as the cause of diseases classified elsewhere; Z97.8 Presence of other specified devices; Z20.822 Contact with and (suspected) exposure to COVID-19; Z79.4 Long term (current) use of insulin; Z79.82 Long term (current) use of aspirin; Z79.890 Hormone replacement therapy; Z79.899 Other long term (current) drug therapy
CPT/HCPCS: 36415; 36573; 71045; 72157; 72158; 80048; 80053; 80076; 80202; 81001; 82947; 83036; 83605; 83690; 83735; 84100; 84145; 85025; 85027; 86140; 87040; 87086; 87635; 93306; A9585; C1751; J0290; J2543; J3370; Q9967

== ENCOUNTER 2020-06-29 10:35 | Outpatient (REF) | payer MEDICARE, MEDICAID, SELFPAY ==
--- NOTE | ~2020-06-29 | IR_ITS ---
EXAMINATION: PICC LINE REPOSITION CLINICAL INFORMATION: Nonfunctioning PICC line COMPARISON: None TECHNIQUE: All elements of maximal sterile barrier technique followed including use of cap, mask, sterile gown, sterile gloves, a sterile full body drape and hand hygiene. Also followed skin preparation with 2% chlorhexidine for cutaneous antisepsis, and sterile ultrasound preparation with sterile gel and probe cover when applicable. The right upper arm and existing PICC line was prepped and draped in the usual sterile fashion. An 018 wire was advanced through the existing PICC line into the SVC. The old PICC line was removed. Through a peel-away sheath, a 5 [place] single lumen PICC line was positioned. Catheter length is 35 cm. Catheter tip is in the SVC. Fluoroscopy time 0.1 minutes. DAP 65 CGY per centimeter squared. 1 saved fluoroscopic image. FINDINGS: There is a new right upper extremity PICC line with tip projecting over the SVC. IR/IR cvc replace peripheral IMPRESSION: Right upper extremity PICC line exchange.
--- NOTE | 2020-06-29 13:47 | HO.RADPN ---
RADIOLOGY Narrative Narrative: Right upper extremity PICC line exchanged for a new 4 Fr single lumen PICC line. Catheter length 35 cm. Catheter tip in SVC.
== END 2020-06-29 10:36 | disposition home or self-care (01) ==
LOC: HO.XRAY 10:35
PROVIDERS: PCP Internal Medicine; Visit Provider Internal Medicine
DX: Z45.2 Encounter for adjustment and management of vascular access device (principal); B95.2 Enterococcus as the cause of diseases classified elsewhere
CPT/HCPCS: 36584; 99212; C1751

== ENCOUNTER → 2020-07-01 14:12 | Outpatient (BNVA) | payer MEDICARE, MEDICAID, SELFPAY | PROVIDERS: Visit Provider Anesthesiology | DX: M96.1 Postlaminectomy syndrome, not elsewhere classified (principal); G89.4 Chronic pain syndrome; F11.90 Opioid use, unspecified, uncomplicated | CPT/HCPCS: 99212 ==

== ENCOUNTER 2020-07-09 11:56 | Outpatient (REF) | payer MEDICARE, MEDICAID, SELFPAY ==
[2020-07-09 13:24] LABS: Estimated Glomerular Filt Rate > 60
[2020-07-09 13:30] LABS: B Type Natriuretic Peptide 104 pg/mL (<100); Vancomycin Trough 13.4 mcg/mL (10.0-20.0)
== END 2020-07-09 11:57 | disposition home or self-care (01) ==
LOC: HO.LAB 11:56
PROVIDERS: PCP Internal Medicine; Visit Provider Internal Medicine
DX: R78.81 Bacteremia (principal); B95.2 Enterococcus as the cause of diseases classified elsewhere
CPT/HCPCS: 36415; 80202; 82565; 83880

== ENCOUNTER → 2020-07-13 10:35 | Outpatient (BNVA) | payer MEDICARE, MEDICAID, SELFPAY | PROVIDERS: Visit Provider Internal Medicine | DX: R78.81 Bacteremia (principal); B95.2 Enterococcus as the cause of diseases classified elsewhere | CPT/HCPCS: 99212 ==

== ENCOUNTER 2020-07-14 10:46 | Outpatient (REF) | payer MEDICARE, MEDICAID, SELFPAY ==
[2020-07-14 12:40] LABS: Anion Gap 14 (12-20); Blood Urea Nitrogen 16 mg/dL (9-16); Calcium 9.6 mg/dL (8.4-10.2); Carbon Dioxide 26 mmol/L (22-29); Chloride 102 mmol/L (96-108); Estimated Glomerular Filt Rate > 60; Glucose Random 221 mg/dL (60-115); Potassium 4.4 mmol/L (3.3-5.1); Sodium 138 mmol/L (135-145)
[2020-07-14 12:45] LABS: Vancomycin Trough 21.8 mcg/mL (10.0-20.0)
== END 2020-07-14 10:47 | disposition home or self-care (01) ==
LOC: HO.LAB 10:46
PROVIDERS: PCP Internal Medicine; Visit Provider Internal Medicine
DX: E10.65 Type 1 diabetes mellitus with hyperglycemia (principal); R78.81 Bacteremia; Z79.899 Other long term (current) drug therapy
CPT/HCPCS: 36415; 80048; 80202

== ENCOUNTER 2020-07-20 10:38 | Outpatient (REF) | payer MEDICARE, MEDICAID, SELFPAY ==
[2020-07-20 12:37] LABS: Estimated Glomerular Filt Rate > 60
[2020-07-20 12:40] LABS: Vancomycin Trough 24.6 mcg/mL (10.0-20.0)
== END 2020-07-20 10:39 | disposition home or self-care (01) ==
LOC: HO.LAB 10:38
PROVIDERS: PCP Internal Medicine; Visit Provider Internal Medicine
DX: E10.65 Type 1 diabetes mellitus with hyperglycemia (principal); R78.81 Bacteremia
CPT/HCPCS: 36415; 80202; 82565

== ENCOUNTER → 2020-07-30 11:18 | Outpatient (BNVA) | payer MEDICARE, MEDICAID, SELFPAY | PROVIDERS: PCP Internal Medicine; Visit Provider Anesthesiology | DX: M96.1 Postlaminectomy syndrome, not elsewhere classified (principal); G89.4 Chronic pain syndrome; F11.90 Opioid use, unspecified, uncomplicated | CPT/HCPCS: 62368; 99212 ==

== ENCOUNTER 2020-08-04 09:41 | Outpatient (REF) | payer MEDICARE, MEDICAID, SELFPAY | END 2020-08-04 09:42 | disposition home or self-care (01) | LOC: HO.LAB 09:41 | PROVIDERS: PCP Internal Medicine; Visit Provider Internal Medicine | DX: B99.9 Unspecified infectious disease (principal); B95.2 Enterococcus as the cause of diseases classified elsewhere | CPT/HCPCS: 87040 ==

== ENCOUNTER → 2020-08-10 10:19 | Outpatient (BNVA) | payer MEDICARE, MEDICAID, SELFPAY | PROVIDERS: PCP Internal Medicine; Visit Provider Internal Medicine | DX: Z86.19 Personal history of other infectious and parasitic diseases (principal) | CPT/HCPCS: 99212 ==

== ENCOUNTER 2020-08-11 06:28 | Outpatient (REF) | payer MEDICARE, MEDICAID, SELFPAY | END 2020-08-11 06:29 | disposition home or self-care (01) | LOC: HO.RADIR 06:28 | PROVIDERS: Visit Provider Anesthesiology | DX: M96.1 Postlaminectomy syndrome, not elsewhere classified (principal); G89.4 Chronic pain syndrome; F11.90 Opioid use, unspecified, uncomplicated | CPT/HCPCS: 62370 ==

== ENCOUNTER 2020-09-29 06:11 | Outpatient (REF) | payer MEDICARE, MEDICAID, SELFPAY | END 2020-09-29 06:12 | disposition home or self-care (01) | LOC: HO.RADIR 06:11 | PROVIDERS: PCP Internal Medicine; Visit Provider Anesthesiology | DX: M96.1 Postlaminectomy syndrome, not elsewhere classified (principal); G89.4 Chronic pain syndrome; F11.90 Opioid use, unspecified, uncomplicated | CPT/HCPCS: 62370 ==

== ENCOUNTER 2020-11-10 06:23 | Outpatient (REF) | payer MEDICARE, MEDICAID, SELFPAY | END 2020-11-10 06:24 | disposition home or self-care (01) | LOC: HO.RADIR 06:23 | PROVIDERS: Visit Provider Anesthesiology | DX: Z13.89 Encounter for screening for other disorder (principal) ==

== ENCOUNTER 2020-12-29 05:46 | Outpatient (REF) | payer MEDICARE, MEDICAID, SELFPAY | END 2020-12-29 05:47 | disposition home or self-care (01) | LOC: HO.RADIR 05:46 | PROVIDERS: Visit Provider Anesthesiology | DX: Z13.89 Encounter for screening for other disorder (principal) ==

== ENCOUNTER 2021-03-02 06:08 | Outpatient (REF) | payer MEDICARE, MEDICAID, SELFPAY | END 2021-03-02 06:09 | disposition home or self-care (01) | LOC: HO.RADIR 06:08 | PROVIDERS: Visit Provider Anesthesiology | DX: Z13.89 Encounter for screening for other disorder (principal) ==

== ENCOUNTER 2021-05-04 06:01 | Outpatient (REF) | payer MEDICARE, MEDICAID, SELFPAY | END 2021-05-04 06:02 | disposition home or self-care (01) | LOC: HO.RADIR 06:01 | PROVIDERS: Visit Provider Anesthesiology | DX: Z13.89 Encounter for screening for other disorder (principal) ==

== ENCOUNTER → 2021-07-05 09:56 | Outpatient (BNVA) | payer MEDICARE, MEDICAID, SELFPAY | PROVIDERS: PCP Internal Medicine; Visit Provider Internal Medicine | DX: G89.4 Chronic pain syndrome (principal); Z96.89 Presence of other specified functional implants | CPT/HCPCS: 62370 ==

== ENCOUNTER → 2021-07-28 14:36 | Outpatient (BNVA) | payer MEDICARE, MEDICAID, SELFPAY | PROVIDERS: PCP Internal Medicine; Visit Provider Anesthesiology | DX: M96.1 Postlaminectomy syndrome, not elsewhere classified (principal); G89.4 Chronic pain syndrome; F11.20 Opioid dependence, uncomplicated | CPT/HCPCS: Q3014 ==

== ENCOUNTER → 2021-09-06 08:01 | Outpatient (BNVA) | payer MEDICARE, MEDICAID, SELFPAY | PROVIDERS: PCP Internal Medicine; Visit Provider Anesthesiology | DX: Z45.1 Encounter for adjustment and management of infusion pump (principal); G89.4 Chronic pain syndrome; M96.1 Postlaminectomy syndrome, not elsewhere classified; F11.90 Opioid use, unspecified, uncomplicated | CPT/HCPCS: 62370 ==

== ENCOUNTER → 2021-12-01 08:08 | Outpatient (BNVA) | payer MEDICARE, MEDICAID, SELFPAY | PROVIDERS: PCP Internal Medicine; Visit Provider Anesthesiology | DX: M96.1 Postlaminectomy syndrome, not elsewhere classified (principal); G89.4 Chronic pain syndrome; F11.90 Opioid use, unspecified, uncomplicated | CPT/HCPCS: 62370; 99212 ==

== ENCOUNTER 2022-01-12 08:12 | Outpatient (REF) | payer MEDICARE, MEDICAID, SELFPAY ==
[2022-01-12 10:52] LABS: Anion Gap 13 (12-20); Blood Urea Nitrogen 22 mg/dL (9-16); Calcium 9.4 mg/dL (8.4-10.2); Carbon Dioxide 24 mmol/L (22-29); Chloride 106 mmol/L (96-108); Estimated Glomerular Filt Rate > 60; Glucose Random 74 mg/dL (60-115); Potassium 4.3 mmol/L (3.3-5.1); Sodium 139 mmol/L (135-145); TSH reflex Free T4 6.28 uIU/mL (0.32-4.0)
[2022-01-12 11:54] LABS: Free T4 (Free Thyroxine) 1.07 ng/dL (0.71-1.85)
== END 2022-01-12 08:13 | disposition home or self-care (01) ==
LOC: HO.LAB 08:12
PROVIDERS: PCP Internal Medicine; Visit Provider Anesthesiology
DX: M96.1 Postlaminectomy syndrome, not elsewhere classified (principal); G89.4 Chronic pain syndrome; E03.9 Hypothyroidism, unspecified; Z96.89 Presence of other specified functional implants; F11.20 Opioid dependence, uncomplicated
CPT/HCPCS: 36415; 80048; 84439; 84443; 99212

== ENCOUNTER → 2022-02-09 08:09 | Outpatient (BNVA) | payer MEDICARE, MEDICAID, SELFPAY | PROVIDERS: PCP Internal Medicine; Visit Provider Anesthesiology | DX: F11.20 Opioid dependence, uncomplicated (principal); M96.1 Postlaminectomy syndrome, not elsewhere classified; G89.4 Chronic pain syndrome | CPT/HCPCS: Q3014 ==

== ENCOUNTER → 2022-04-20 08:25 | Outpatient (BNVA) | payer MEDICARE, MEDICAID, SELFPAY | PROVIDERS: PCP Internal Medicine; Visit Provider Anesthesiology | DX: Z45.1 Encounter for adjustment and management of infusion pump (principal); G89.4 Chronic pain syndrome; M96.1 Postlaminectomy syndrome, not elsewhere classified; Z79.891 Long term (current) use of opiate analgesic | CPT/HCPCS: 62370 ==

== ENCOUNTER → 2022-06-29 08:07 | Outpatient (BNVA) | payer MEDICARE, MEDICAID, SELFPAY | PROVIDERS: PCP Internal Medicine; Visit Provider Anesthesiology | DX: M96.1 Postlaminectomy syndrome, not elsewhere classified (principal); F11.20 Opioid dependence, uncomplicated; G89.4 Chronic pain syndrome; Z96.41 Presence of insulin pump (external) (internal); Z79.4 Long term (current) use of insulin | CPT/HCPCS: 62370; 99212 ==

== ENCOUNTER 2022-09-07 08:14 | Outpatient (AMB) | payer MEDICARE, MEDICAID, SELFPAY ==
--- NOTE | 2022-09-07 08:20 | MHC.OFFVIS ---
Intake Vital Signs 09/07/22 08:35 Height 5 ft 9 in Weight 235 lb BMI 34.7 BP 160/80 H Blood Pressure Location Lt brachial Position Sitting Respiration 16 Pulse 65 Pulse Source Pulse Oximeter Pulse Oximetry (%) 98 Oxygen Delivery Method Room Air Intake Visit Reasons: ITDD Refill Intake Note: patient comes in for pain pump refill. Allergies onions Allergy (Severe, Uncoded 06/29/22 08:56) Vomiting HPI ITDD Refill HPI Details See HPI comments HPI Comments History of Present Illness Details Pacheco is back in my office for routine? Pain pump refill.? She is suffering from postlaminectomy syndrome.? She is also diabetic.? He is on insulin pump for the blood sugar control. She is under care of cardiac cath technologist for coronary artery disease. His pain is very well under control.? He presents no complains on pain today.? He is using PTM effectively on the pain pump. [facility] Medical History Chronic pain syndrome Chronic, continuous use of opioids Cubital tunnel syndrome on right Depression Diabetic neuropathy Enterococcus faecalis infection Fusion of lumbar spine HLD (hyperlipidemia) Hypothyroid Left carpal tunnel syndrome Lumbar post-laminectomy syndrome Type 1 diabetes mellitus Surgical History H/O decompression of ulnar nerve H/O exploratory laparotomy H/O parathyroidectomy S/P lumbar fusion Social History Household Members: Family Household Members Other:: Son, Daughter in law, 4 grandchildren Housing: House Do you presently have visiting nurse or other home services: No Second Hand Smoke Exposure: No Advance Directives Date on File: 06/05/20 Review of Systems Const All systems reviewed & are unremarkable except as noted in HPI and below Neuro Denies confusion Psych Denies confusion Physical Exam Vital Signs: Last Vital Signs Pulse 65 09/07/22 08:35 Resp 16 09/07/22 08:35 BP 160/80 H 09/07/22 08:35 Pulse Ox 98 09/07/22 08:35 Oxygen Delivery Method Room Air 09/07/22 08:35 BMI result Body Mass Index 34.7 Const General: No confusion Nutritional Appearance: obese morbidly obese Orientation/consciousness: No confusion Eyes General: appearance normal, both eyes and all related structures Pupils: Equal, round and reactive pupils present EOM: EOMs intact bilaterally Neck Neck: Yes full ROM Resp Effort & Inspection: normal respiratory effort, able to speak in complete sentences, normal respiratory pattern, no audible wheezes and no cough Cardio Jugular venous distension: no JVD Back/Spine/Pelvis Other: Incisions are very well-healed Neuro General: No confusion Cranial nerves: Yes Equal, round and reactive pupils present Extrem General: No pedal edema Psych Speech and movement: Normal speech and movement present Affect: normal affect Attitude: cooperative Assessment & Plan Assessment & Plan (1) Lumbar post-laminectomy syndrome: Code(s): M96.1 - Postlaminectomy syndrome, not elsewhere classified (2) Chronic pain syndrome: Code(s): G89.4 - Chronic pain syndrome (3) Chronic, continuous use of opioids: Code(s): F11.90 - Opioid use, unspecified, uncomplicated Plan: Will schedule new appointment for the patient on or before 07/18/22. His blood pressure became very stable and today is very much acceptable. He is brittle diabetic on insulin pump. I will schedule his new pump refill on 11/16/2022. Plan THE PATIENT CAME TODAY IN THE office FOR THE CHANGE OF THE MEDICATION IN he is PAIN PUMP. The name and date of were verified and informed consent was obtained for the procedure. The pump was interrogated and the residual amount of fluid was found to be 2.6 mL. HE WAS POSITIONED prone on the bed AND THE AREA OF THE INTRATHECAL PUMP WAS PREPPED WITH CHLORAPREP. The fenestrated drape was sterilely applied over the area of the pump. Sterile gloves were worn and of the aspiration system was assembled containing 2 in 22 gauge noncoring needle, the needle was connected to extension tubing which was connected to the 20 cc sterile syringe. The pain pump was palpated under the skin in the patient's right buttock area. The needle was inserted through the skin and the central plug of the pain pump and fluid was aspirated. The clear fluid was going into the syringe the total amount of the fluid was 3.2 mL .. After that a new batch of medication was obtained which was containing hydromorphone 1000 micro g per mL with addition of 20 mg of bupivacaine per mL in admixture.The admixture was made in 20 cc syringe prepared by [facility] compounding pharmacy. The syringe was connected to the bacterial filter, and then connected to the extension tubing. After that the medication in the syringe was slowly instilled into the pump with aspirations at 15 and 5 cc martinez. The dosages and concentrations of medications were changed today. Patient will continue to receive hydromorphone 105 micro g a day on top of that he will be able to receive 35 micro g hydromorphone with corresponding does of bupivacaine 0.7 mg 4 times a 24 hour interval every 4 hours. He will be able to receive about 244 micro g of hydromorphone the day and 4.8 mg of bupivacaine a day. Coding Level of Care Code Est Pt Level 3 (31485) Procedure Only Diagnoses Lumbar post-laminectomy syndrome M96.1 Chronic pain syndrome G89.4 Chronic, continuous use of opioids F11.90
[2022-09-07 08:35] VITALS: BP 160/80; PULSE 65; RESP 16; O2SAT 98; BMI 34.7
== END 2022-09-07 08:45 | disposition home or self-care (01) ==
PROVIDERS: PCP Internal Medicine; Visit Provider Anesthesiology
DX: G89.4 Chronic pain syndrome (principal); M96.1 Postlaminectomy syndrome, not elsewhere classified; Z79.891 Long term (current) use of opiate analgesic
CPT/HCPCS: 99213

== ENCOUNTER → 2022-09-07 08:14 | Outpatient (BNVA) | payer MEDICARE, MEDICAID, SELFPAY | PROVIDERS: PCP Internal Medicine; Visit Provider Anesthesiology | DX: Z45.1 Encounter for adjustment and management of infusion pump (principal); M96.1 Postlaminectomy syndrome, not elsewhere classified; G89.4 Chronic pain syndrome; E10.40 Type 1 diabetes mellitus with diabetic neuropathy, unspecified; Z96.41 Presence of insulin pump (external) (internal); Z79.891 Long term (current) use of opiate analgesic | CPT/HCPCS: 99212 ==

== ENCOUNTER 2022-11-16 08:17 | Outpatient (AMB) | payer MEDICARE, MEDICAID, SELFPAY ==
--- NOTE | 2022-11-16 08:18 | A.OFFVIS_ITS ---
Intake Vital Signs 11/16/22 09:21 Height 59 ft Weight 241 lb BMI 0.3 BP 150/82 H Blood Pressure Location Lt brachial Position Sitting Respiration 16 Pulse 73 Pulse Source Pulse Oximeter Pulse Oximetry (%) 97 Oxygen Delivery Method Room Air Intake Visit Reasons: ITDD Refill/Confirmed Intake Note: patient comes in for pain pump medication refill. Allergies onions Allergy (Severe, Uncoded 06/29/22 08:56) Vomiting HPI HPI Comments History of Present Illness Details Pacheco is back in my office for intrathecal Pain pump refill.? She is suffering from postlaminectomy syndrome.? She is also diabetic.? His hemoglobin A1c recently went up to 8 and he is working with his insulin pump to bring it under tighter control. He is on insulin pump for the blood sugar control. She is under care of fishing vessel operator for coronary artery disease. His pain is very well under control.? He presents no complains on pain today.? He is using PTM effectively on the pain pump. He reports erectile dysfunction. He asks me if bupivacaine in intrathecal pump can contribute to erectile dysfunction. My answer was that bupivacaine may be a component of his erectile dysfunction however it could be helpful with premature ejaculation. He is under care of urologist who potentially can prescribe him phosphodiesterase inhibitors type 5 such as sildenafil or tadalafil. Alternatively I would not mind to give him that prescription. But it would be better if the prescription would be coming from his urologist. [facility] Medical History Chronic pain syndrome Chronic, continuous use of opioids Cubital tunnel syndrome on right Depression Diabetic neuropathy Enterococcus faecalis infection Fusion of lumbar spine HLD (hyperlipidemia) Hypothyroid Left carpal tunnel syndrome Lumbar post-laminectomy syndrome Type 1 diabetes mellitus Surgical History H/O decompression of ulnar nerve H/O exploratory laparotomy H/O parathyroidectomy S/P lumbar fusion Social History Household Members: Family Household Members Other:: Son, Daughter in law, 4 grandchildren Housing: House Do you presently have visiting nurse or other home services: No Second Hand Smoke Exposure: No Advance Directives Date on File: 06/05/20 Review of Systems Const All systems reviewed & are unremarkable except as noted in HPI and below Neuro Denies confusion Psych Denies confusion Physical Exam Vital Signs: Last Vital Signs Pulse 73 11/16/22 09:21 Resp 16 11/16/22 09:21 BP 150/82 H 11/16/22 09:21 Pulse Ox 97 11/16/22 09:21 Oxygen Delivery Method Room Air 11/16/22 09:21 BMI result Body Mass Index 0.3 Const General: No confusion Nutritional Appearance: obese morbidly obese Orientation/consciousness: No confusion Eyes General: appearance normal, both eyes and all related structures Pupils: Equal, round and reactive pupils present EOM: EOMs intact bilaterally Neck Neck: Yes full ROM Resp Effort & Inspection: normal respiratory effort, able to speak in complete sentences, normal respiratory pattern, no audible wheezes and no cough Cardio Jugular venous distension: no JVD Back/Spine/Pelvis Other: Incisions are very well-healed Neuro General: No confusion Cranial nerves: Yes Equal, round and reactive pupils present Extrem General: No pedal edema Psych Speech and movement: Normal speech and movement present Affect: normal affect Attitude: cooperative Assessment & Plan Assessment & Plan (1) Lumbar post-laminectomy syndrome: Code(s): M96.1 - Postlaminectomy syndrome, not elsewhere classified (2) Chronic pain syndrome: Code(s): G89.4 - Chronic pain syndrome (3) Chronic, continuous use of opioids: Code(s): F11.90 - Opioid use, unspecified, uncomplicated Plan: Will schedule new appointment for the patient on or before 12/28/2022 His blood pressure became very stable and today is very much acceptable. He is brittle diabetic on insulin pump. His hemoglobin A1c recently went up. He is working with hand decorator to adjust his insulin pump. He is asking about bupivacaine contributing to ED. I told him that most likely it is multifactorial. He has CAD and penile arteries are the same diameter as the cardiac coronary arteries. But bupivacaine may contribute to his ED. I recommended him to request his urologist to start him on sildenafil or tadalafil. (4) Implantable intrathecal infusion pump present: Code(s): Z96.89 - Presence of other specified functional implants (5) Postlaminectomy syndrome: Code(s): M96.1 - Postlaminectomy syndrome, not elsewhere classified (6) Erectile dysfunction: Code(s): N52.9 - Male erectile dysfunction, unspecified Plan THE PATIENT CAME TODAY IN THE office FOR THE CHANGE OF THE MEDICATION IN he is PAIN PUMP. The name and date of were verified and informed consent was obtained for the procedure. The pump was interrogated and the residual amount of fluid was found to be 2.9 mL. HE WAS POSITIONED prone on the bed AND THE AREA OF THE INTRATHECAL PUMP WAS PREPPED WITH CHLORAPREP. The fenestrated drape was sterilely applied over the area of the pump. Sterile gloves were worn and of the aspiration system was assembled containing 2 in 22 gauge noncoring needle, the needle was connected to extension tubing which was connected to the 20 cc sterile syringe. The pain pump was palpated under the skin in the patient's right buttock area. The needle was inserted through the skin and the central plug of the pain pump and fluid was aspirated. The clear fluid was going into the syringe the total amount of the fluid was 3.5 mL .. After that a new batch of medication was obtained which was containing hydromorphone 1000 micro g per mL with addition of 20 mg of bupivacaine per mL in admixture.The admixture was made in 20 cc syringe prepared by [facility] compounding pharmacy. The syringe was connected to the bacterial filter, and then connected to the extension tubing. After that the medication in the syringe was slowly instilled into the pump with aspirations at 15 and 5 cc martinez. The dosages and concentrations of medications were changed today. Patient will continue to receive hydromorphone 105 micro g a day on top of that he will be able to receive 35 micro g hydromorphone with corresponding does of bupivacaine 0.7 mg 4 times a 24 hour interval every 4 hours. He will be able to receive about 244 micro g of hydromorphone the day and 4.8 mg of bupivacaine a day. Coding Level of Care Code Est Pt Level 4 (05331) Procedure Only Diagnoses Lumbar post-laminectomy syndrome M96.1 Chronic pain syndrome G89.4 Chronic, continuous use of opioids F11.90 Implantable intrathecal infusion pump present Z96.89 Postlaminectomy syndrome M96.1 Erectile dysfunction N52.9
[2022-11-16 09:21] VITALS: BP 150/82; PULSE 73; RESP 16; O2SAT 97
== END 2022-11-16 08:48 | disposition home or self-care (01) ==
PROVIDERS: PCP Internal Medicine; Visit Provider Anesthesiology
DX: G89.4 Chronic pain syndrome (principal); M96.1 Postlaminectomy syndrome, not elsewhere classified; Z96.89 Presence of other specified functional implants; Z45.1 Encounter for adjustment and management of infusion pump; Z79.891 Long term (current) use of opiate analgesic; N52.9 Male erectile dysfunction, unspecified
CPT/HCPCS: 95991; 99214

== ENCOUNTER → 2022-11-16 08:17 | Outpatient (BNVA) | payer MEDICARE, MEDICAID, SELFPAY | PROVIDERS: PCP Internal Medicine; Visit Provider Anesthesiology | DX: M96.1 Postlaminectomy syndrome, not elsewhere classified (principal); N52.9 Male erectile dysfunction, unspecified; G89.4 Chronic pain syndrome; Z96.89 Presence of other specified functional implants; F11.20 Opioid dependence, uncomplicated | CPT/HCPCS: 99212 ==

== ENCOUNTER 2022-12-26 09:01 | Outpatient (AMB) | payer MEDICARE, MEDICAID, SELFPAY ==
[2022-12-26 09:15] VITALS: BP 170/90; PULSE 78; RESP 18; O2SAT 98; BMI 34.7
--- NOTE | 2022-12-26 09:15 | A.OFFVIS_ITS ---
Intake Vital Signs 12/26/22 09:15 Height 5 ft 9 in Weight 235 lb BMI 34.7 BP 170/90 H Blood Pressure Location Lt brachial Position Sitting Respiration 18 Pulse 78 Pulse Source Pulse Oximeter Pulse Oximetry (%) 98 Oxygen Delivery Method Room Air Intake Visit Reasons: ITDD Refill/confirmed Allergies onions Allergy (Severe, Uncoded 06/29/22 08:56) Vomiting HPI HPI Comments History of Present Illness Details Pacheco is back in my office for intrathecal Pain pump refill.? She is suffering from postlaminectomy syndrome.? She is also diabetic.? His hemoglobin A1c recently went up to 8 and he is working with his insulin pump to bring it under tighter control. He is on insulin pump for the blood sugar control. She is under care of rehabilitation construction specialist for coronary artery disease. He started to compla in on the PTM does being not as effective as it was before. At the same time he has almost half of the pump un used. He came today with 9.8 cc left overs doses in the pump. I recommended him to use his pump PTM more frequently, however when I did the aspiration of the fluid from the pump it was more than 12 mL. Of course it is possible he developed tolerance to the medication. However with am ount of aspirated medicine exceeding the amount of recorded medicine it more than 2 cc I am obligated to perform a dye study on he has catheter. I will invited him for the dye study next Monday. To help his pain better I will increase today the dose of the medication by increasing PTM dose to ... And increasing number of PTMs to [address] [facility] Medical History Chronic pain syndrome Chronic, continuous use of opioids Cubital tunnel syndrome on right Depression Diabetic neuropathy Enterococcus faecalis infection Fusion of lumbar spine HLD (hyperlipidemia) Hypothyroid Left carpal tunnel syndrome Lumbar post-laminectomy syndrome Type 1 diabetes mellitus Surgical History H/O decompression of ulnar nerve H/O exploratory laparotomy H/O parathyroidectomy S/P lumbar fusion Social History Household Members: Family Household Members Other:: Son, Daughter in law, 4 grandchildren Housing: House Do you presently have visiting nurse or other home services: No Second Hand Smoke Exposure: No Advance Directives Date on File: 06/05/20 Review of Systems Const All systems reviewed & are unremarkable except as noted in HPI and below Neuro Denies confusion Psych Denies confusion Physical Exam Vital Signs: Last Vital Signs Pulse 78 12/26/22 09:15 Resp 18 12/26/22 09:15 BP 170/90 H 12/26/22 09:15 Pulse Ox 98 12/26/22 09:15 Oxygen Delivery Method Room Air 12/26/22 09:15 BMI result Body Mass Index 34.7 Const General: No confusion Nutritional Appearance: obese morbidly obese Orientation/consciousness: No confusion Eyes General: appearance normal, both eyes and all related structures Pupils: Equal, round and reactive pupils present EOM: EOMs intact bilaterally Neck Neck: Yes full ROM Resp Effort & Inspection: normal respiratory effort, able to speak in complete sentences, normal respiratory pattern, no audible wheezes and no cough Cardio Jugular venous distension: no JVD Back/Spine/Pelvis Other: Incisions are very well-healed Neuro General: No confusion Cranial nerves: Yes Equal, round and reactive pupils present Extrem General: No pedal edema Psych Speech and movement: Normal speech and movement present Affect: normal affect Attitude: cooperative Assessment & Plan Assessment & Plan (1) Lumbar post-laminectomy syndrome: Code(s): M96.1 - Postlaminectomy syndrome, not elsewhere classified (2) Chronic pain syndrome: Code(s): G89.4 - Chronic pain syndrome (3) Chronic, continuous use of opioids: Code(s): F11.90 - Opioid use, unspecified, uncomplicated Plan: His next appointment is scheduled in January however before that I will schedule him for the intra gauge in of the intrathecal catheter. The pump refill is as below. The doses adjustment is also as below. (4) Implantable intrathecal infusion pump present: Code(s): Z96.89 - Presence of other specified functional implants (5) Postlaminectomy syndrome: Code(s): M96.1 - Postlaminectomy syndrome, not elsewhere classified (6) Erectile dysfunction: Code(s): N52.9 - Male erectile dysfunction, unspecified Plan THE PATIENT CAME TODAY IN THE office FOR THE CHANGE OF THE MEDICATION IN he is PAIN PUMP. The name and date of were verified and informed consent was obtained for the procedure. The pump was interrogated and the residual amount of fluid was found to be 9.8 mL. HE WAS POSITIONED prone on the bed AND THE AREA OF THE INTRATHECAL PUMP WAS PREPPED WITH CHLORAPREP. The fenestrated drape was sterilely applied over the area of the pump. Sterile gloves were worn and of the aspiration system was assembled containing 2 in 22 gauge noncoring needle, the needle was connected to extension tubing which was connected to the 20 cc sterile syringe. The pain pump was palpated under the skin in the patient's right buttock area. The needle was inserted through the skin and the central plug of the pain pump and fluid was aspirated. The clear fluid was going into the syringe the total amount of the fluid was 12.5 mL .. After that a new batch of medication was obtained which was containing hydromorphone 1000 micro g per mL with addition of 20 mg of bupivacaine per mL in admixture.The admixture was made in 20 cc syringe prepared by [facility] compounding pharmacy. The syringe was connected to the bacterial filter, and then connected to the extension tubing. After that the medication in the syringe was slowly instilled into the pump with aspirations at 15 and 5 cc martinez. The dosages and concentrations of medications were changed today. Patient will continue to receive hydromorphone 105 micro g a day on top of that he will be able to receive 35 micro g hydromorphone with corresponding does of bupivacaine 0.7 mg 5 times a 24 hour interval every 4 hours. He will be able to receive about 304 micro g of hydromorphone the day and 4.8 mg of bupivacaine a day. Coding Level of Care Code Est Pt Level 3 (98136) Procedure Only Diagnoses Lumbar post-laminectomy syndrome M96.1 Chronic pain syndrome G89.4 Chronic, continuous use of opioids F11.90 Implantable intrathecal infusion pump present Z96.89 Postlaminectomy syndrome M96.1 Erectile dysfunction N52.9
== END 2022-12-26 09:32 | disposition home or self-care (01) ==
PROVIDERS: PCP Internal Medicine; Visit Provider Anesthesiology
DX: G89.4 Chronic pain syndrome (principal); M96.1 Postlaminectomy syndrome, not elsewhere classified; Z79.891 Long term (current) use of opiate analgesic; N52.9 Male erectile dysfunction, unspecified
CPT/HCPCS: 62370

== ENCOUNTER → 2022-12-26 09:01 | Outpatient (BNVA) | payer MEDICARE, MEDICAID, SELFPAY | PROVIDERS: PCP Internal Medicine; Visit Provider Anesthesiology | DX: Z45.1 Encounter for adjustment and management of infusion pump (principal); M96.1 Postlaminectomy syndrome, not elsewhere classified; N52.9 Male erectile dysfunction, unspecified; F11.20 Opioid dependence, uncomplicated; G89.4 Chronic pain syndrome | CPT/HCPCS: 62370 ==

== ENCOUNTER 2023-01-03 06:02 | Outpatient (REF) | payer MEDICARE, MEDICAID, SELFPAY ==
--- NOTE | ~2023-01-03 | FL_ITS ---
EXAMINATION: XR FLUOROSCOPY WITH IMAGES CLINICAL INFORMATION: Chronic pain syndrome. COMPARISON: None available. TECHNIQUE: Fluoroscopy Supervised By: Dr. Gomez Ferrell. Fluoroscopy Time: 0.2 minutes. Cumulative Dose: 8.44 mGy. DAP: 0.134 Gycm2. Images: 1. FINDINGS: Image demonstrates a battery projecting over the pelvis FL/FL guidance in treatment room IMPRESSION: Fluoroscopy guidance for pain management procedure
== END 2023-01-03 06:03 | disposition home or self-care (01) ==
LOC: CF 06:02
PROVIDERS: Visit Provider Anesthesiology
DX: T85.610A Breakdown (mechanical) of cranial or spinal infusion catheter, initial encounter (principal); M96.1 Postlaminectomy syndrome, not elsewhere classified; G89.4 Chronic pain syndrome; F11.90 Opioid use, unspecified, uncomplicated; Z96.89 Presence of other specified functional implants; N52.9 Male erectile dysfunction, unspecified; X58.XXXA Exposure to other specified factors, initial encounter; Y93.9 Activity, unspecified; Y92.9 Unspecified place or not applicable; Y99.9 Unspecified external cause status
CPT/HCPCS: 61070; Q9965; Q9967

== ENCOUNTER 2023-01-03 07:46 | Outpatient (AMB) | payer MEDICARE, MEDICAID, SELFPAY ==
--- NOTE | 2023-01-03 07:44 | MHC.OFFVIS ---
Intake Vital Signs 01/03/23 07:45 Height 5 ft 9 in Weight 235 lb BMI 34.7 BP 140/96 H Blood Pressure Location Lt radial Position Sitting Respiration 18 Pulse 88 Pulse Source Pulse Oximeter Pulse Oximetry (%) 98 Oxygen Delivery Method Room Air Comment pre-op Intake Visit Reasons: Dye Study of Intrathecal Catheter Allergies onions Allergy (Severe, Uncoded 06/29/22 08:56) Vomiting PFSH Medical History Chronic pain syndrome Chronic, continuous use of opioids Cubital tunnel syndrome on right Depression Diabetic neuropathy Enterococcus faecalis infection Fusion of lumbar spine HLD (hyperlipidemia) Hypothyroid Left carpal tunnel syndrome Lumbar post-laminectomy syndrome Type 1 diabetes mellitus Surgical History H/O decompression of ulnar nerve H/O exploratory laparotomy H/O parathyroidectomy S/P lumbar fusion Social History Household Members: Family Household Members Other:: Son, Daughter in law, 4 grandchildren Housing: House Do you presently have visiting nurse or other home services: No Second Hand Smoke Exposure: No Advance Directives Date on File: 06/05/20 Physical Exam Vital Signs: Last Vital Signs Pulse 88 01/03/23 07:45 Resp 18 01/03/23 07:45 BP 140/96 H 01/03/23 07:45 Pulse Ox 98 01/03/23 07:45 Oxygen Delivery Method Room Air 01/03/23 07:45 BMI result Body Mass Index 34.7 Assessment & Plan Assessment & Plan (1) Lumbar post-laminectomy syndrome: Code(s): M96.1 - Postlaminectomy syndrome, not elsewhere classified (2) Chronic pain syndrome: Code(s): G89.4 - Chronic pain syndrome (3) Chronic, continuous use of opioids: Code(s): F11.90 - Opioid use, unspecified, uncomplicated Plan: His next appointment is scheduled in January however before that I will schedule him for the intra gauge in of the intrathecal catheter. The pump refill is as below. The doses adjustment is also as below. (4) Implantable intrathecal infusion pump present: Code(s): Z96.89 - Presence of other specified functional implants (5) Postlaminectomy syndrome: Code(s): M96.1 - Postlaminectomy syndrome, not elsewhere classified (6) Erectile dysfunction: Code(s): N52.9 - Male erectile dysfunction, unspecified Plan Attempt to perform dye study of intrathecal catheter. Patient came to the operating room and was position prone on the operating table. Informed consent was explained. Time-out was performed. The patient's intrathecal pain pump area was prepped with ChloraPrep and draped with fenestrated drape. 25 gauge noncoring needle 2.5 cm long connected to the 10 cc syringe with the use of extension tubing was driven twice into the lateral side outlet plug under x-ray view. Aspiration was applied both times and unfortunately not a hint of CSF was appeared in the tubing or syringe. Therefore injection of the contrast dye deemed to be dangerous. The needle was removed sterile Band-Aid was applied. I will send patient to the MRI of the thoracic spine to rule out the tip of the catheter granuloma. Orders: Orders FL guidance in treatment room 01/03/23 G89.4 - Chronic pain syndrome Shanta Nieves APRN, PATIENT REGISTRATION REPRESENTATIVE MR thoracic spine wo con 01/03/23 T85.610A - Breakdown (mechanical) of cranial or spinal infusion catheter, initial encounter Gomez Ferrell MD Coding Level of Care Code Procedure Only Diagnoses Lumbar post-laminectomy syndrome M96.1 Chronic pain syndrome G89.4 Chronic, continuous use of opioids F11.90 Implantable intrathecal infusion pump present Z96.89 Postlaminectomy syndrome M96.1 Erectile dysfunction N52.9
[2023-01-03 07:45] VITALS: BP 140/96; PULSE 88; RESP 18; O2SAT 98; BMI 34.7
== END 2023-01-03 10:35 | disposition home or self-care (01) ==
LOC: HO.PMCPRC 07:46
PROVIDERS: PCP Internal Medicine; Visit Provider Anesthesiology
DX: Z45.1 Encounter for adjustment and management of infusion pump (principal); G89.4 Chronic pain syndrome; M96.1 Postlaminectomy syndrome, not elsewhere classified; Z79.891 Long term (current) use of opiate analgesic; Z96.89 Presence of other specified functional implants; N52.9 Male erectile dysfunction, unspecified
CPT/HCPCS: 61070

== ENCOUNTER 2023-01-13 11:14 | Outpatient (REF) | payer MEDICARE, MEDICAID, SELFPAY ==
--- NOTE | ~2023-01-13 | XR_ITS ---
Examination: Abdomen single view. CLINICAL HISTORY: evaluation of pump position for MRI. COMPARISON: 01/03/2023 FINDINGS: The pump device located over the right iliac wing. Patient is status post lower lumbar spine-S1 hardware placement with posterior fusion of L3-L4 and discs replacement at the level of L4-L5 and L5-S1. There is nonspecific bowel gas pattern. XR/XR pre mri screening IMPRESSION: Similar position of mesentery/pump over the right side of the pelvis projecting over the right iliac wing
--- NOTE | ~2023-01-13 | MR_ITS ---
EXAMINATION: MR THORACIC SPINE WITHOUT CONTRAST CLINICAL INFORMATION: Breakdown (mechanical) of cranial or spinal infusion catheter. Granuloma of the intrathecal catheter tip which is positioned at T8-T9 intrathecal space is suspected. COMPARISON: Thoracic spine MRI 06/16/2020. TECHNIQUE: MRI of the thoracic spine was obtained using routine sequences without contrast. FINDINGS: No well-defined abnormality is seen within the spinal canal at the T8-T9 level. The thoracic cord signal appears normal. There is no epidural collection. There is left-sided ligamentum flavum thickening associated with facet arthropathy at the T10-T11 level resulting in flattening of the left dorsolateral aspect of the thecal sac. The spinal canal otherwise appears patent. The vertebral body heights are preserved. The alignment appears normal. Multilevel intervertebral disc height loss is noted. The neural foramina are patent. Multiple endplate Schmorl's nodes are noted. There is disc bulging at L1-L2 resulting in mild spinal canal stenosis. The extraspinal soft tissues are within normal limits. There is a small hiatal hernia. MR/MR thoracic spine wo con IMPRESSION: No well-defined abnormality is seen within the spinal canal at the T8-T9 level. No cord signal abnormality. No epidural collection. No significant narrowing of the spinal canal or neural foramina.
== END 2023-01-13 11:15 | disposition home or self-care (01) ==
LOC: HO.MRI 11:14
PROVIDERS: PCP Internal Medicine; Visit Provider Anesthesiology
DX: T85.610A Breakdown (mechanical) of cranial or spinal infusion catheter, initial encounter (principal)
CPT/HCPCS: 72146

== ENCOUNTER 2023-01-30 09:28 | Outpatient (AMB) | payer MEDICARE, MEDICAID, SELFPAY ==
--- NOTE | 2023-01-30 09:48 | MHC.OFFVIS ---
Intake Vital Signs 01/30/23 09:55 Height 5 ft 9 in Weight 242 lb 4 oz BMI 35.8 BP 160/70 H Blood Pressure Location Lt brachial Position Sitting Respiration 16 Pulse 67 Pulse Source Pulse Oximeter Pulse Oximetry (%) 96 Oxygen Delivery Method Room Air Intake Visit Reasons: Sign pain contract/ discuss MRI results Intake Note: Patient was advise and aware to do a random UDS and he has until 12pm to get it done. Allergies onions Allergy (Severe, Uncoded 06/29/22 08:56) Vomiting HPI HPI Comments History of Present Illness Details Pacheco is back in my office for intrathecal Pain pump refill.? She is suffering from postlaminectomy syndrome. We decided today that I will withdraw the medication from his pain pump and fill it up with normal saline. The procedure was performed see as below. The discrepancy between the pump delivery and amount of the medication in the body of the pump is more than 8 cc. Obviously is pump does not deliver any medication almost at all. Today 17.5 mL were withdrawn with the pump while pump considers 9.5 mL on the left. Coinciding with previous attempt to do a dye study during which I was not able to withdraw any CSF from the catheter I suspect catheter malfunction. Patient reports his pain is getting worse. He reports that bupivacaine is not helping his neuropathy. He reports that or Lyrica helps his neuropathic pain better than pump. He was sent for MRI thoracic spine and no granuloma was found at the tip of the catheter. Most likely the catheter is malfunctioning because it is kinked. Therefore I thing the only way to help his pain as of now to be performing a revision of the pain pump. Because I did replace medication with normal saline I will place him on the chronic opioid program today. I also will send him for urine drug screen today. As soon as urine drug screen is available for me I will start him on Nucynta 100 mg t.i.d.. Prior: Diabetic patient. His hemoglobin A1c recently went up to 8 and he is working with his insulin pump to bring it under tighter control. He is on insulin pump for the blood sugar control. She is under care of hospice volunteer for coronary artery disease. He started to complain on the PTM does being not as effective as it was before. At the same time he has almost half of the pump un used. He came today with 9.8 cc left overs doses in the pump. I recommended him to use his pump PTM more frequently, however when I did the aspiration of the fluid from the pump it was more than 12 mL. Of course it is possible he developed tolerance to the medication. However with amount of aspirated medicine exceeding the amount of recorded medicine it more than 2 cc I am obligated to perform a dye study on he has catheter. I will invited him for the dye study next Monday. To help his pain better I will increase today the dose of the medication by increasing PTM dose to ... And increasing number of PTMs to 5 applications a day. [facility] Medical History Chronic pain syndrome Chronic, continuous use of opioids Cubital tunnel syndrome on right Depression Diabetic neuropathy Enterococcus faecalis infection Fusion of lumbar spine HLD (hyperlipidemia) Hypothyroid Left carpal tunnel syndrome Lumbar post-laminectomy syndrome Type 1 diabetes mellitus Surgical History H/O decompression of ulnar nerve H/O exploratory laparotomy H/O parathyroidectomy S/P lumbar fusion Social History Household Members: Family Household Members Other:: Son, Daughter in law, 4 grandchildren Housing: House Do you presently have visiting nurse or other home services: No Comment: back Second Hand Smoke Exposure: No Advance Directives Date on File: 06/05/20 Review of Systems Const All systems reviewed & are unremarkable except as noted in HPI and below Neuro Denies confusion Psych Denies confusion Physical Exam Vital Signs: Last Vital Signs Pulse 67 01/30/23 09:55 Resp 16 01/30/23 09:55 BP 160/70 H 01/30/23 09:55 Pulse Ox 96 01/30/23 09:55 Oxygen Delivery Method Room Air 01/30/23 09:55 BMI result Body Mass Index 35.8 Const General: No confusion Nutritional Appearance: obese morbidly obese Orientation/consciousness: No confusion Eyes General: appearance normal, both eyes and all related structures Pupils: Equal, round and reactive pupils present EOM: EOMs intact bilaterally Neck Neck: Yes full ROM Resp Effort & Inspection: normal respiratory effort, able to speak in complete sentences, normal respiratory pattern, no audible wheezes and no cough Cardio Jugular venous distension: no JVD Back/Spine/Pelvis Other: Incisions are very well-healed Neuro General: No confusion Cranial nerves: Yes Equal, round and reactive pupils present Extrem General: No pedal edema Psych Speech and movement: Normal speech and movement present Affect: normal affect Attitude: cooperative Assessment & Plan Assessment & Plan (1) Lumbar post-laminectomy syndrome: Code(s): M96.1 - Postlaminectomy syndrome, not elsewhere classified (2) Chronic pain syndrome: Code(s): G89.4 - Chronic pain syndrome (3) Chronic, continuous use of opioids: Code(s): F11.90 - Opioid use, unspecified, uncomplicated Plan: I think the patient needs to go for pain pump revision. I will schedule it under general anesthesia. Meanwhile while he is on normal saline in his pump I will start him on Nucynta as soon as his UDS will come back. It will be 100 mg t.i.d. of Nucynta. After Jose Luis will perform revision of his pain pump. (4) Implantable intrathecal infusion pump present: Code(s): Z96.89 - Presence of other specified functional implants (5) Postlaminectomy syndrome: Code(s): M96.1 - Postlaminectomy syndrome, not elsewhere classified (6) Erectile dysfunction: Code(s): N52.9 - Male erectile dysfunction, unspecified Plan THE PATIENT CAME TODAY IN THE office FOR THE CHANGE OF THE MEDICATION IN he is PAIN PUMP. The name and date of were verified and informed consent was obtained for the procedure. The pump was interrogated and the residual amount of fluid was found to be 9.5 mL. HE WAS POSITIONED prone on the bed AND THE AREA OF THE INTRATHECAL PUMP WAS PREPPED WITH CHLORAPREP. The fenestrated drape was sterilely applied over the area of the pump. Sterile gloves were worn and of the aspiration system was assembled containing 2 in 22 gauge noncoring needle, the needle was connected to extension tubing which was connected to the 20 cc sterile syringe. The pain pump was palpated under the skin in the patient's right buttock area. The needle was inserted through the skin and the central plug of the pain pump and fluid was aspirated. The clear fluid was going into the syringe the total amount of the fluid was 17.4 mL .. After that sterile preservative-free normal saline was obtained 10 mL 10 cc syringe. The syringe was connected to the bacterial filter, and then connected to the extension tubing. After that the medication in the syringe was slowly instilled into the pump with aspirations at 15 and 5 cc martinez. The dosages and concentrations of medications were changed today. Patient Instructions: I here by testify that I spent 40 minutes in conversation with this patient as well as feeling out his pump as well as planning his care and organizing this note. Coding Level of Care Code Est Pt Level 4 (93249) Procedure Only Diagnoses Lumbar post-laminectomy syndrome M96.1 Chronic pain syndrome G89.4 Chronic, continuous use of opioids F11.90 Implantable intrathecal infusion pump present Z96.89 Postlaminectomy syndrome M96.1 Erectile dysfunction N52.9
[2023-01-30 09:55] VITALS: BP 160/70; PULSE 67; RESP 16; O2SAT 96; BMI 35.8
== END 2023-01-30 10:55 | disposition home or self-care (01) ==
PROVIDERS: PCP Internal Medicine; Visit Provider Anesthesiology
DX: G89.4 Chronic pain syndrome (principal); M96.1 Postlaminectomy syndrome, not elsewhere classified; Z79.891 Long term (current) use of opiate analgesic; Z96.89 Presence of other specified functional implants; N52.9 Male erectile dysfunction, unspecified; Z45.1 Encounter for adjustment and management of infusion pump
CPT/HCPCS: 62370; 99214

== ENCOUNTER → 2023-01-30 09:28 | Outpatient (BNVA) | payer MEDICARE, MEDICAID, SELFPAY | PROVIDERS: PCP Internal Medicine; Visit Provider Anesthesiology | DX: F11.20 Opioid dependence, uncomplicated (principal); M96.1 Postlaminectomy syndrome, not elsewhere classified; N52.9 Male erectile dysfunction, unspecified; G89.4 Chronic pain syndrome; Z96.89 Presence of other specified functional implants | CPT/HCPCS: 62370; 99212 ==

== ENCOUNTER 2023-02-16 09:02 | Outpatient (AMB) | payer MEDICARE, MEDICAID, SELFPAY ==
--- NOTE | 2023-02-16 09:04 | A.OFFVIS_ITS ---
Intake Vital Signs 02/16/23 09:27 Height 5 ft 9 in Weight 232 lb 2 oz BMI 34.3 BP 150/76 H Blood Pressure Location Lt brachial Position Sitting Respiration 16 Pulse 69 Pulse Source Pulse Oximeter Pulse Oximetry (%) 97 Oxygen Delivery Method Room Air Intake Visit Reasons: pill count/confirmed Intake Note: Patient comes in for pill count to Morphine 15 mg tablets. Reports pain level of 4/10. Allergies onions Allergy (Severe, Uncoded 06/29/22 08:56) Vomiting HPI HPI Comments History of Present Illness Details Pacheco is today in my office for the follow-up in pill count. His pill count is correct. His supposed to bring 60 pills in his possession he brought 59. He receives morphine 15 mg t.i.d. 90 pills for month. He reports his pain 4/10. He states today that he did not realize until the pump postop on how much he has pain was relieved by his pain pump. I agree with him however I cannot seat on the fact and perform no actions while his pump is demonstrating up to 8 cc discrepancy of delivery. I presume that the kink was made in the catheter. Attempt of diagnostic dye study supported my opinion. He is scheduled for revision on 03/02/2023. I will renew his medications 3 days early to give him some extra pills to accommodate for postoperative pain. Surgery was discussed in the great details today. He is suffering from postlaminectomy syndrome. 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 Prior: Diabetic patient. His hemoglobin A1c recently went up to 8 and he is working with his insulin pump to bring it under tighter control. He is on insulin pump for the blood sugar control. She is under care of case management social worker for coronary artery disease. . [facility] Medical History Chronic pain syndrome Chronic, continuous use of opioids Cubital tunnel syndrome on right Depression Diabetic neuropathy Enterococcus faecalis infection Fusion of lumbar spine HLD (hyperlipidemia) Hypothyroid Left carpal tunnel syndrome Lumbar post-laminectomy syndrome Type 1 diabetes mellitus Surgical History H/O decompression of ulnar nerve H/O exploratory laparotomy H/O parathyroidectomy S/P lumbar fusion Social History Household Members: Family Household Members Other:: Son, Daughter in law, 4 grandchildren Housing: House Do you presently have visiting nurse or other home services: No Comment: back Second Hand Smoke Exposure: No Advance Directives Date on File: 06/05/20 Review of Systems Const All systems reviewed & are unremarkable except as noted in HPI and below Neuro Denies confusion Psych Denies confusion Physical Exam Vital Signs: Last Vital Signs Pulse 69 02/16/23 09:27 Resp 16 02/16/23 09:27 BP 150/76 H 02/16/23 09:27 Pulse Ox 97 02/16/23 09:27 Oxygen Delivery Method Room Air 02/16/23 09:27 BMI result Body Mass Index 34.3 Const General: No confusion Nutritional Appearance: obese morbidly obese Orientation/consciousness: No confusion Eyes General: appearance normal, both eyes and all related structures Pupils: Equal, round and reactive pupils present EOM: EOMs intact bilaterally Neck Neck: Yes full ROM Resp Effort & Inspection: normal respiratory effort, able to speak in complete sentences, normal respiratory pattern, no audible wheezes and no cough Cardio Jugular venous distension: no JVD Neuro General: No confusion Cranial nerves: Yes Equal, round and reactive pupils present Extrem General: No pedal edema Psych Speech and movement: Normal speech and movement present Affect: normal affect Attitude: cooperative Assessment & Plan Assessment & Plan (1) Lumbar post-laminectomy syndrome: Code(s): M96.1 - Postlaminectomy syndrome, not elsewhere classified (2) Chronic pain syndrome: Code(s): G89.4 - Chronic pain syndrome (3) Chronic, continuous use of opioids: Code(s): F11.90 - Opioid use, unspecified, uncomplicated Plan: Revision of the pain pump is scheduled on 03/02/2023. I will schedule it under general anesthesia. He is on morphine 15 mg t.i.d.. I will refill the medication on 03/06/2023 3 days earlier to accommodate for his postoperative pain. (4) Implantable intrathecal infusion pump present: Code(s): Z96.89 - Presence of other specified functional implants (5) Postlaminectomy syndrome: Code(s): M96.1 - Postlaminectomy syndrome, not elsewhere classified (6) Erectile dysfunction: Code(s): N52.9 - Male erectile dysfunction, unspecified Plan T Medications: Refilled morphine Partial Fill upon patient request. 15 mg PO Q8H 30 days PRN 90 tabs 0RF pain Patient Instructions: I here by testify that I spent 40 minutes in conversation with this patient as well as re-evaluating his prior records as well as planning his care and organizing this note. Coding Level of Care Code Est Pt Level 5 (10207) Diagnoses Lumbar post-laminectomy syndrome M96.1 Chronic pain syndrome G89.4 Chronic, continuous use of opioids F11.90 Implantable intrathecal infusion pump present Z96.89 Postlaminectomy syndrome M96.1 Erectile dysfunction N52.9
[2023-02-16 09:27] VITALS: BP 150/76; PULSE 69; RESP 16; O2SAT 97; BMI 34.3
== END 2023-02-16 09:31 | disposition home or self-care (01) ==
PROVIDERS: PCP Internal Medicine; Visit Provider Anesthesiology
DX: G89.4 Chronic pain syndrome (principal); M96.1 Postlaminectomy syndrome, not elsewhere classified; Z79.891 Long term (current) use of opiate analgesic; Z96.89 Presence of other specified functional implants; N52.9 Male erectile dysfunction, unspecified
CPT/HCPCS: 99214

== ENCOUNTER → 2023-02-16 09:02 | Outpatient (BNVA) | payer MEDICARE, MEDICAID, SELFPAY | PROVIDERS: PCP Internal Medicine; Visit Provider Anesthesiology | DX: Z51.81 Encounter for therapeutic drug level monitoring (principal); F11.20 Opioid dependence, uncomplicated; M96.1 Postlaminectomy syndrome, not elsewhere classified; G89.4 Chronic pain syndrome; N52.9 Male erectile dysfunction, unspecified; Z96.89 Presence of other specified functional implants | CPT/HCPCS: 99212 ==

== ENCOUNTER → 2023-02-24 08:39 | Outpatient (BNVA) | payer MEDICARE, MEDICAID, SELFPAY | PROVIDERS: PCP Internal Medicine; Visit Provider Anesthesiology | DX: Z45.1 Encounter for adjustment and management of infusion pump (principal); G89.4 Chronic pain syndrome; M96.1 Postlaminectomy syndrome, not elsewhere classified; N52.9 Male erectile dysfunction, unspecified; Z79.891 Long term (current) use of opiate analgesic | CPT/HCPCS: 99212 ==

== ENCOUNTER 2023-02-24 08:40 | Outpatient (AMB) | payer MEDICARE, MEDICAID, SELFPAY ==
--- NOTE | 2023-02-24 08:42 | MHC.OFFVIS ---
Intake Vital Signs 02/24/23 08:45 Height 5 ft 9 in Weight 238 lb 0.4 oz BMI 35.1 BP 124/70 Blood Pressure Location Lt brachial Position Sitting Intake Visit Reasons: ITDD Refill per Dr. Ferrell Intake Note: pt is follow up and states he is okay just the pain, hearing an alarm for a few days. Emergency Care Tech Required: No Allergies onions Allergy (Severe, Uncoded 02/24/23 08:43) Vomiting HPI HPI Comments History of Present Illness Details Pacheco is today in my office for the interrogation and adjustment of the pain pump. He is scheduled for pump system revision and I filled his pump saline on the last refill with 10 mls of preservative free sterile normal saline, He reported that the pump started to alarm dry and I invited him for pump interrogation and adjustment, full report see as below. He still has about 8.5 mls of saline in the pump. I carefully explained him today what is going to happen during and after the surgery, I explained to him his pain medication regimen. He is due for the refill of morphine on 03/09/2023. He was sent the prescription with an early date of 03/06/2023. Therefore he has extra 4 days worth of pills (12 pills) after surgery, I allowed him fort he first 5 to 6 postoperative days to take up to 5-6 pills of morphine if postoperative pain is very severe. He is suffering from postlaminectomy syndrome. 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 He takes Lyrica for neuropathy and this helps his feet neuropathy pain Diabetic patient. On the insulin pump. . [facility] Medical History Chronic pain syndrome Chronic, continuous use of opioids Cubital tunnel syndrome on right Depression Diabetic neuropathy Enterococcus faecalis infection Fusion of lumbar spine HLD (hyperlipidemia) Hypothyroid Left carpal tunnel syndrome Lumbar post-laminectomy syndrome Type 1 diabetes mellitus Surgical History H/O decompression of ulnar nerve H/O exploratory laparotomy H/O parathyroidectomy S/P lumbar fusion Social History Household Members: Family Household Members Other:: Son, Daughter in law, 4 grandchildren Housing: House Do you presently have visiting nurse or other home services: No Comment: back Second Hand Smoke Exposure: No Advance Directives Date on File: 06/05/20 Review of Systems Const All systems reviewed & are unremarkable except as noted in HPI and below Neuro Denies confusion Psych Denies confusion Physical Exam Vital Signs: Last Vital Signs BP 124/70 02/24/23 08:45 BMI result Body Mass Index 35.1 Const General: No confusion Nutritional Appearance: obese morbidly obese Orientation/consciousness: No confusion Eyes General: appearance normal, both eyes and all related structures Pupils: Equal, round and reactive pupils present EOM: EOMs intact bilaterally Neck Neck: Yes full ROM Resp Effort & Inspection: normal respiratory effort, able to speak in complete sentences, normal respiratory pattern, no audible wheezes and no cough Cardio Jugular venous distension: no JVD Neuro General: No confusion Cranial nerves: Yes Equal, round and reactive pupils present Extrem General: No pedal edema Psych Speech and movement: Normal speech and movement present Affect: normal affect Attitude: cooperative Assessment & Plan Assessment & Plan (1) Lumbar post-laminectomy syndrome: Code(s): M96.1 - Postlaminectomy syndrome, not elsewhere classified (2) Chronic pain syndrome: Code(s): G89.4 - Chronic pain syndrome (3) Chronic, continuous use of opioids: Code(s): F11.90 - Opioid use, unspecified, uncomplicated Plan: Pump revision is scheduled on 03/02/2023 He is on Morphine p.o. while the pump runs saline (4) Implantable intrathecal infusion pump present: Code(s): Z96.89 - Presence of other specified functional implants (5) Postlaminectomy syndrome: Code(s): M96.1 - Postlaminectomy syndrome, not elsewhere classified (6) Erectile dysfunction: Code(s): N52.9 - Male erectile dysfunction, unspecified Plan THE PATIENT CAME TODAY IN THE office FOR THE CHANGE OF THE MEDICATION IN he is PAIN PUMP. The name and date of were verified and informed consent was obtained for the procedure. The pump was interrogated and the residual amount of fluid was found to be alarming on empty.. HE WAS POSITIONED prone on the bed AND THE AREA OF THE INTRATHECAL PUMP WAS PREPPED WITH CHLORAPREP twice . The fenestrated drape was sterilely applied over the area of the pump. Sterile gloves were worn and of the aspiration system was assembled containing 2 in 22 gauge noncoring needle, the needle was connected to extension tubing which was connected to the 20 cc sterile syringe. The pain pump was palpated under the skin in the patient's right buttock area. The needle was inserted through the skin and the central plug of the pain pump and fluid was aspirated. The clear fluid was going into the syringe the total amount of the fluid was 8.5 mL .. The same normal saline was injected back into the pump. The pump was adjusted for the volume of 8.5 mls. the rate is 1/2 mls a day. Medications: Discontinued morphine ER (MS Contin) Partial Fill upon patient request. Discontinued Reason: Doctor's Order 15 mg PO Q12H 14 tabs 0RF Patient Instructions: I hereby testify that I spent 35 minutes in conversation of the patient , as well as evaluationg his prior records as well as organizing this note. Coding Level of Care Code Est Pt Level 4 (37580) Procedure Only Diagnoses Lumbar post-laminectomy syndrome M96.1 Chronic pain syndrome G89.4 Chronic, continuous use of opioids F11.90 Implantable intrathecal infusion pump present Z96.89 Postlaminectomy syndrome M96.1 Erectile dysfunction N52.9
[2023-02-24 08:45] VITALS: BP 124/70; BMI 35.1
== END 2023-02-24 09:23 | disposition home or self-care (01) ==
PROVIDERS: PCP Internal Medicine; Visit Provider Anesthesiology
DX: G89.4 Chronic pain syndrome (principal); M96.1 Postlaminectomy syndrome, not elsewhere classified; Z79.891 Long term (current) use of opiate analgesic; Z45.1 Encounter for adjustment and management of infusion pump; N52.9 Male erectile dysfunction, unspecified
CPT/HCPCS: 95991; 99214

== ENCOUNTER 2023-03-02 09:53 | Day surgery (SDC) | payer MEDICARE, MEDICAID, SELFPAY ==
[2023-02-28 09:00] VITALS: BMI 35.1
--- NOTE | 2023-03-01 08:18 | HO.ANESPROP2 ---
HPI - Anesthesia Eval Consult details Narrative: 57yo M for REVISION Intrathecal Drug Delivery Pain Pump s/p pump implant 2020 with GA-ETT 7 chronic opioids PMFSH Active Problems Active Problems: All Active Problems (Updated 11/16/22 @ 09:44 by Gomez Ferrell MD) Erectile dysfunction (Acute) Postlaminectomy syndrome (Acute) Hypothyroidism (Acute) Implantable intrathecal infusion pump present (Acute) Enterococcus faecalis infection (Acute) DKA (diabetic ketoacidoses) (Acute) MARVIN (acute kidney injury) (Acute) Bacteremia (Acute) Chronic, continuous use of opioids (Acute) Chronic pain syndrome (Acute) Past Medical History Medical History Enterococcus faecalis infection Hypothyroid Depression HLD (hyperlipidemia) Diabetic neuropathy Type 1 diabetes mellitus Chronic, continuous use of opioids Chronic pain syndrome Fusion of lumbar spine Cubital tunnel syndrome on right Left carpal tunnel syndrome Lumbar post-laminectomy syndrome Surgical History Surgical History H/O parathyroidectomy H/O exploratory laparotomy S/P lumbar fusion H/O decompression of ulnar nerve Social History Social History Household Members: Family Household Members Other:: Son, Daughter in law, 4 grandchildren Housing: House Do you presently have visiting nurse or other home services: No Comment: back Patient Tobacco Use Status: Never used Tobacco Second Hand Smoke Exposure: No Are you DNR?: No Advance Directives: No Advance Directives Information Provided: Yes Advance Directives Date on File: 06/05/20 Nutrition Risks: No Nutritional Risk Meds Allergies Allergy/AdvReac Type Severity Reaction Status Date / Time onions Allergy Severe Vomiting Uncoded 02/24/23 08:43 Home Medications Medication Instructions Recorded Confirmed Last Taken Type blood sugar diagnostic #10 ea 11/30/19 06/29/22 Unknown History insulin aspart U-100 100 unit/mL 0 - 110 unit subcut DAILY 11/30/19 02/28/23 Unknown History subcutaneous solution pravastatin 20 mg tablet 20 mg PO DAILY 11/30/19 02/28/23 Unknown History tizanidine 4 mg tablet 4 mg PO Q8H 11/30/19 02/28/23 Unknown History aspirin 81 mg tablet,delayed 81 mg PO DAILY 12/04/19 02/28/23 05/28/20 20:00 History release acetaminophen 325 mg capsule 650 mg PO Q6H PRN Pain 07/30/20 02/28/23 Unknown History (Tylenol) testosterone cypionate 200 mg/mL 200 mg IM Q2W 01/12/22 02/28/23 Unknown History intramuscular oil metoprolol succinate 25 mg 12.5 mg PO DAILY 09/07/22 02/28/23 Unknown History tablet,extended release 24 hr amlodipine 2.5 mg tablet 2.5 mg PO DAILY 11/16/22 02/28/23 Unknown History Exam Height,Weight and Vital Signs: Height 5 ft 9 in Weight 107.955 kg Assessment and Plan Assessment Anesthesia Assessment: Chart Reviewed
[2023-03-02] VITALS (11 sets, daily range): BP systolic 134–208; BP diastolic 7–98; PULSE 63–86; RESP 14–18; TEMP 36.1–36.6; O2SAT 94–98; BMI 35.1
--- NOTE | ~2023-03-02 | FL_ITS ---
EXAMINATION: XR FLUOROSCOPY WITH IMAGES CLINICAL INFORMATION: Revision intrathecal drug delivery pain pump. COMPARISON: None available. TECHNIQUE: Fluoroscopy Supervised By: Dr. Gomez Ferrell. Fluoroscopy Time: 0.2 minutes. Cumulative Dose: 7.59 mGy. DAP: 0.102 Gycm2. Images: 2. FINDINGS: Images demonstrate a small catheter projecting over the spinal canal of the lower thoracic and upper lumbar spine FL/FL guidance in OR IMPRESSION: Fluoroscopy guidance for pain management procedure
--- NOTE | 2023-03-02 11:04 | PC.NURSE ---
attempt by author. attempt and insertion by marhta stewart.
--- NOTE | 2023-03-02 11:06 | PC.NURSE ---
patient denies hx MRSA. no MRSA swab needed per dr. brito's requirements as patient has not history of.
--- NOTE | 2023-03-02 11:18 | HO.ANESPROP2 ---
[facility] Active Problems Active Problems: All Active Problems (Updated 11/16/22 @ 09:44 by Gomez Ferrell MD) Erectile dysfunction (Acute) Postlaminectomy syndrome (Acute) Hypothyroidism (Acute) Implantable intrathecal infusion pump present (Acute) Enterococcus faecalis infection (Acute) DKA (diabetic ketoacidoses) (Acute) MARVIN (acute kidney injury) (Acute) Bacteremia (Acute) Chronic, continuous use of opioids (Acute) Chronic pain syndrome (Acute) Past Medical History Medical History Enterococcus faecalis infection Hypothyroid Depression HLD (hyperlipidemia) Diabetic neuropathy Type 1 diabetes mellitus Chronic, continuous use of opioids Chronic pain syndrome Fusion of lumbar spine Cubital tunnel syndrome on right Left carpal tunnel syndrome Lumbar post-laminectomy syndrome Family History Family history of problems with anesthesia: Yes Surgical History Surgical History H/O parathyroidectomy H/O exploratory laparotomy S/P lumbar fusion H/O decompression of ulnar nerve History of Problems with Anesthesia: No Social History Social History Household Members: Family Household Members Other:: Son, Daughter in law, 4 grandchildren Housing: House Do you presently have visiting nurse or other home services: No Comment: back Patient Tobacco Use Status: Never used Tobacco Second Hand Smoke Exposure: No Are you DNR?: No Advance Directives: No Advance Directives Information Provided: Yes Advance Directives Date on File: 06/05/20 Nutrition Risks: No Nutritional Risk Meds Allergies Allergy/AdvReac Type Severity Reaction Status Date / Time onions Allergy Severe Vomiting Uncoded 02/24/23 08:43 Active Medications: Current Medications Lactated Ringer's (Lr) 1,000 mls @ 100 mls/hr IVCONT .Q10H EDWARD Last Admin: 03/02/23 10:30 Dose: 100 mls/hr Home Medications Medication Instructions Recorded Confirmed Last Taken Type blood sugar diagnostic #10 ea 11/30/19 06/29/22 Unknown History insulin aspart U-100 100 unit/mL 0 - 110 unit subcut DAILY 11/30/19 02/28/23 Unknown History subcutaneous solution pravastatin 20 mg tablet 20 mg PO DAILY 11/30/19 02/28/23 Unknown History tizanidine 4 mg tablet 4 mg PO Q8H 11/30/19 02/28/23 Unknown History aspirin 81 mg tablet,delayed 81 mg PO DAILY 12/04/19 02/28/23 05/28/20 20:00 History release acetaminophen 325 mg capsule 650 mg PO Q6H PRN Pain 07/30/20 02/28/23 Unknown History (Tylenol) testosterone cypionate 200 mg/mL 200 mg IM Q2W 01/12/22 02/28/23 Unknown History intramuscular oil metoprolol succinate 25 mg 12.5 mg PO DAILY 09/07/22 02/28/23 Unknown History tablet,extended release 24 hr amlodipine 2.5 mg tablet 2.5 mg PO DAILY 11/16/22 02/28/23 Unknown History Exam Height,Weight and Vital Signs: Height 5 ft 9 in Weight 107.774 kg Last Vital Signs Temp 97.9 F 03/02/23 11:05 Pulse 63 03/02/23 11:05 Resp 18 03/02/23 11:05 BP 144/78 H 03/02/23 11:05 Pulse Ox 96 03/02/23 11:05 O2 Del Method Room Air 03/02/23 11:05 Pertinent Lab Results Pertinent Lab Results: Laboratory Tests 03/02/23 10:32 POC Glucose 103 Airway Mallampati Class: II TM Dist: >3cm Neck ROM: Full Denture: Upper and Lower Heart: RRR Lungs: CTA Assessment and Plan Assessment Anesthesia Assessment: Anesthesia Plan Discussed Final Anesthetic Review Family History of Problems with Anesthesia: Yes History of Problems with Anesthesia: No NPO: Yes ASA Class: III Final Preanesthetic Review: Meds/Allgs Chart Reviewed, Consent Obtained/Reviewed and Anes Risks/Benef Reviewed Patient Risk: Intermediate Procedure Risk: Low Anesthetic Plan Anesthetic Plan: GA Disposition: Standard PACU
--- NOTE | 2023-03-02 12:40 | MHC.SHP ---
Pre-Procedural Eval Section A Date of Service: 03/02/23 The patient is an INPATIENT: No Changes since office visit: Yes Patient answered all questions The History & Physical has been completed within 30 days and I have reviewed it.: No Section B Chief Complaint: Presence of other specified functional implants Details of Present Illness: presence of ITDD, R/o catheter mulfunction. Relevant Family History (Specify if Yes): No Relevant Social History: None Present Medications: see Short Stay Collaborative assessment Medical History: No relevant PMH History of Previous Operations: Relevant previous surgery/procedure and date(s) (Implantation of I DDD S) Allergies: Allergies Allergy/AdvReac Type Severity Reaction Status Date / Time onions Allergy Severe Vomiting Uncoded 02/24/23 08:43 Review of Systems Sugical H&P ROS: Negative: Constitution, Cardiovascular, Respiratory, Neurological, Psychiatric, Hem-Onc, Allergic/Immunologic, Gastrointestinal, Genitourinary, Musculoskeletal, Integumentary, Endocrine and Eyes/Ears/Nose/Throat Exam Surgical H&P Exam: Normal: HEENT, Normal: Heart, Normal: Lungs, Normal: Extremities, Normal: Abdomen, Normal: Skin and Normal: Neurological Plan Diagnosis/Plan: Unchanged I have reviewed the history and physical and performed a pertinent physical examination on my patient. No changes have occurred unless specified. Time Spent With Patient Time: Total time managing care of this patient today ____ minutes.
--- NOTE | 2023-03-02 12:57 | PC.NURSE ---
Patient told anesthesia that he was feeling symptomatic for hypoglycemia. POC checked at bedside was 190. Questioning of the discrepancy from poc at arrival and pump at home. Dr. Ortega asked for a second check and it was 177. Dr. Ortega stated ok for patient to wear dentures into OR.
--- NOTE | 2023-03-02 16:12 | PM.OP ---
Brief Operative Note Date of Service: 03/02/23 Pre-op diagnosis: presence of the intrathecal pain pump, malfunctioning intrathecal pain pump. Post-op diagnosis: same Procedure: revision of the Intrathecal drug delivery system -pain pump Implants: suture less connection device as a new implant, the rest of the system stayed the same Surgeon: Gomez Ferrell MD Was an Sheet Manufacturing Supervisor used for this Procedure?: No Estimated blood loss (mL): 20 Condition: stable Disposition: PACU
--- NOTE | 2023-03-02 16:13 | W.PM.OPN ---
Operative Note Operative Note Date of Service: 03/02/23 Narrative: REvision of the intrathecal drug delivery system pain pump. Pacheco Gibson 57 years old gentleman who presented today to the operating room with diagnosis of malfunctioning intrathecal drug delivery system pain pump. after explaining informed consent to the patient with risks of bleeding and infection, peripheral nerve damage, failure to restore normal function of the pain pump and other unspecified risks the patient was taken to the operating room and was positioned supine on the stretcher. .[employer] [place] monitors were and patient was induced with intra tracheal general anesthesia. After that the patient was transferred on the operating table prone all pressure points were protected. Time-out was performed delineating correct site and side of the procedure name and date of of the patient needs for DVT prophylaxis need for antibiotic prophylaxis risk of fire. Patient received 3 g of cefazolin approximately 30 minutes before the incision. The lower back of the patient and bilateral upper buttocks were prepped with ChloraPrep twice and draped with full body fenestrated drape including Ioban film. Attention was concentrated on the area of the intrathecal pump at the right upper buttock. In the projection of the previously made very well-healed scar local anesthetic solution containing lidocaine 2% mixed with ropivacaine 0.5% 1-1 was injected along side the scar. 11 cm incision was made alongside the previous scar. The 10 blade scalpel was used to make superficial incision. After that the incision was continued with cutting function of electric cautery. When the capsule of the intrathecal pump was discovered in the wound small incision was made along side the pump and it was widened medially and laterally. Anchoring sutures on the superior medial corner of the wound superior lateral corner of the wound and inferior lateral corner alone the wounds were severed and intrathecal pump was delivered on the surface of the skin. After that noncoring 25 gauge needle mounted on the 3 cc syringe was inserted into the side port of the pump and attempt of the aspiration was made. As it was observed before on the dye studyprocedure few weeks ago - there were no CSF flow into the needle. Sterilely draped C-arm was brought over the operating field and Contrast Isovue-M 3 cc was injected into the side port and no images of the intrathecal catheter above the level of the buttock wound was discovered on the C-arm image. The decision was made to explore the spinal area of insertion of the intrathecal catheter. Image of the anterior posterior and lateral projection of the T8 thoracic spine was performed and it was clearly demonstrated the tip of the catheter in the projection of the posterior intrathecal space without any intrathecal spread of the previously injected contrast. The intrathecal pump was wrapped with sterile gauze and upper buttock wound was irrigated with normal saline containing vancomycin and it was packed with 4 x 4 soaked with the same irrigation solution. Alongside previously very well-healed scar in the projection of the paraspinal area of L3-L4 vertebras the same as above local anesthetic solution was injected into the skin and after that 6 cm incision was made along side the previous scar. after that the incision was widened with dull dissection and electrocautery and it was open up until the anchoring device was located the bottom of the wound. Tension was applied on the intrathecal catheter below the level of the anchoring device and we observed intrathecal catheter moving without any difficulty. Attention was again concentrated on the upper buttock wound and intrathecal catheter was dissected out of the adhesions at the bottom of the pocket wound, the sutureless connection device was excised from surrounding tissues and the intrathecal catheter was severed 9 mm proximal to the sutureless connection element. After that we observed clear flow of CSF freely coming from the intrathecal catheter. new sutureless connection device was brought of the operating field and was trimmed appropriately approximately at the same length as previously sutureless connection device was made. Both sides of the intrathecal catheter system were connected and looking system was closed. After that the all sutureless connection device was removed from the speak good of the intrathecal pain pump and new sutureless connection device was mounted on the intrathecal pump. noncoring 25 gauge needle was inserted into the side port of the pump and aspiration of the CSF was performed. This time CSF was floating freely into the syringe without any observation of the bubbles. Therefore most likely the metal part of sutureless connection device was the culprit of the partial obstruction of the intrathecal catheter system in the patient. Thorough irrigation was performed in both wounds. Anchoring sutures were applied to the superior medial corner superior lateral corner and inferior lateral corner of the wounds. Anchoring sutures were connected to the break it is on the body of the pump. The pump was inserted into the wound. After that the anchoring sutures were tied. After that 25 gauge noncoring needle was again inserted into the side port of the pump and again free aspiration of the CSF into the 2 cc syringe without evidence of air bubbles was observed. After that thorough irrigation was repeated for both wounds thorough hemostasis was repeated for both wounds. Surgicel was applied to the midline incision and held for several minutes. However after the removal of the Surgicel the capillary bleeding was continued in the scarring tissue surrounding the wound. The decision was made to apply pressure dressing to contract this minimal bleeding. Both wounds were closed using 0 door 0 Polysorb sutures. 2-0 Polysorb sutures was used to approximate the level of the skin. After that jia were applied to the level of the skin and pressure dressing was applied to both wounds using 4x4s and tape. After that the patient was awaken, extubated, and he was transferred to PACU without immediate complications.
== END 2023-03-02 17:51 | disposition home or self-care (01) ==
PROVIDERS: PCP Internal Medicine; Visit Provider Anesthesiology
PROC: (CPT 62362; principal; 2023-03-02 13:40)
DX: T85.695A Other mechanical complication of other nervous system device, implant or graft, initial encounter (principal); Z96.89 Presence of other specified functional implants; M96.1 Postlaminectomy syndrome, not elsewhere classified; G89.4 Chronic pain syndrome; F11.20 Opioid dependence, uncomplicated; G60.9 Hereditary and idiopathic neuropathy, unspecified; E10.8 Type 1 diabetes mellitus with unspecified complications; Z79.4 Long term (current) use of insulin; Z96.41 Presence of insulin pump (external) (internal); N52.9 Male erectile dysfunction, unspecified; Y82.8 Other medical devices associated with adverse incidents; Z79.899 Other long term (current) drug therapy
CPT/HCPCS: 62362; 82947; A4649; C1755; J0131; J0690; J1100; J1885; J2250; J2405; J2704; J2795; J3010; J3370; Q9967

== ENCOUNTER → 2023-03-02 09:53 | Outpatient (BNV) | payer MEDICARE, MEDICAID, SELFPAY | PROVIDERS: PCP Internal Medicine; Visit Provider Anesthesiology | DX: T85.695A Other mechanical complication of other nervous system device, implant or graft, initial encounter (principal) | CPT/HCPCS: 62362 ==

== ENCOUNTER 2023-03-08 13:43 | Outpatient (AMB) | payer MEDICARE, MEDICAID, SELFPAY ==
--- NOTE | 2023-03-08 13:56 | A.OFFVIS_ITS ---
Intake Vital Signs 03/08/23 14:33 Height 5 ft 9 in Weight 239 lb 8 oz BMI 35.4 BP 144/70 H Blood Pressure Location Lt brachial Position Sitting Respiration 16 Pulse 81 Pulse Source Pulse Oximeter Pulse Oximetry (%) 94 Oxygen Delivery Method Room Air Intake Visit Reasons: S/p Medtronic Pain Pump Revision 03/02/23 Intake Note: Patient comes in for S/P medtronic pain pump revision 03/02/23. Allergies onions Allergy (Severe, Uncoded 02/24/23 08:43) Vomiting HPI HPI Comments History of Present Illness Details Pacheco is today in my office after the revision of the intrathecal drug delivery system pain pump, he received this procedure 7 days ago. The dressing was removed and the sides of the surgery were worst with ChloraPrep and examined. No redness, no swelling, no pathological discharge, minimal tenderness on palpation . Dry dressing was applied to the areas of the surgery using sterile 4x4s and Tegaderm film. The pump was interrogated. He reports that the PTM does he was written up to be taken once a day gives him pain relief for 2 hours without significant side effects. This is a good results however he admits that the pain with activities is affected less with the pain pump on demand dose. I added 1 more does to the system: For now the patient can have two doses of the same medicine a day. I will see this patient for staple removal and another intrathecal pain pump adjustment in 1 week. He continues oral opioids, he is taking 15 mg 5 times a day. I recommend him to continue may before 7 more days this regimen and when we remove the jia he will go back to his regular 3 pills a day. I also explained to him that ideally we would be better off without any opioid medications. For this purpose we can add baclofen and or clonidine in the admixture of his pump as well as gently increase the doses of the intrathecal medications. Pump intra gait rodríguez and adjustment procedure CS below. Prior: He is suffering from postlaminectomy syndrome. 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 He takes Lyrica for neuropathy and this helps his feet neuropathy pain Diabetic patient. On the insulin pump. . [facility] Medical History Enterococcus faecalis infection Hypothyroid Depression HLD (hyperlipidemia) Diabetic neuropathy Type 1 diabetes mellitus Chronic, continuous use of opioids Chronic pain syndrome Fusion of lumbar spine Cubital tunnel syndrome on right Left carpal tunnel syndrome Lumbar post-laminectomy syndrome Surgical History H/O parathyroidectomy H/O exploratory laparotomy S/P lumbar fusion H/O decompression of ulnar nerve Social History Household Members: Family Household Members Other:: Son, Daughter in law, 4 grandchildren Housing: House Do you presently have visiting nurse or other home services: No Comment: back Patient Tobacco Use Status: Never used Tobacco Second Hand Smoke Exposure: No Advance Directives Date on File: 06/05/20 Review of Systems Const All systems reviewed & are unremarkable except as noted in HPI and below Neuro Denies confusion Psych Denies confusion Physical Exam Vital Signs: Last Vital Signs Pulse 81 03/08/23 14:33 Resp 16 03/08/23 14:33 BP 144/70 H 03/08/23 14:33 Pulse Ox 94 03/08/23 14:33 Oxygen Delivery Method Room Air 03/08/23 14:33 BMI result Body Mass Index 35.4 Const General: No confusion Nutritional Appearance: obese morbidly obese Orientation/consciousness: No confusion Eyes General: appearance normal, both eyes and all related structures Pupils: Equal, round and reactive pupils present EOM: EOMs intact bilaterally Neck Neck: Yes full ROM Resp Effort & Inspection: normal respiratory effort, able to speak in complete sentences, normal respiratory pattern, no audible wheezes and no cough Cardio Jugular venous distension: no JVD Neuro General: No confusion Cranial nerves: Yes Equal, round and reactive pupils present Extrem General: No pedal edema Psych Speech and movement: Normal speech and movement present Affect: normal affect Attitude: cooperative Assessment & Plan Assessment & Plan (1) Lumbar post-laminectomy syndrome: Code(s): M96.1 - Postlaminectomy syndrome, not elsewhere classified (2) Chronic pain syndrome: Code(s): G89.4 - Chronic pain syndrome (3) Chronic, continuous use of opioids: Code(s): F11.90 - Opioid use, unspecified, uncomplicated Plan: He is on Morphine p.o. for the postoperative pain. I will renew his morphine with account taken of him receiving this medication 5 times a day. He receives to extra pills a day therefore he will have to be refilled with morphine medications 5 days earlier. He refill this medicine yesterday 03/07/2023. The next prescription will be due on 04/02/2023. (4) Implantable intrathecal infusion pump present: Code(s): Z96.89 - Presence of other specified functional implants (5) Postlaminectomy syndrome: Code(s): M96.1 - Postlaminectomy syndrome, not elsewhere classified (6) Erectile dysfunction: Code(s): N52.9 - Male erectile dysfunction, unspecified Plan The patient's pain pump was interrogated today amount of the medication there is 11.5 mL of preservative-free normal saline with Dilaudid 2000 micrograms/mL. He continues to receive 96 micro g of Dilaudid continually and 50 micro g of Dilaudid once a day on demand Q 24 hours. I changed today the frequency of the intrathecal Dilaudid on demand from once a day to twice a day every 8 hours. I will see this patient for the appointment next time and probably will adjust the doses again. Total hydromorphone does at this time is 195 micro g a day. Coding Level of Care Code Est Pt Level 3 (72347) Procedure Only Diagnoses Lumbar post-laminectomy syndrome M96.1 Chronic pain syndrome G89.4 Chronic, continuous use of opioids F11.90 Implantable intrathecal infusion pump present Z96.89 Postlaminectomy syndrome M96.1 Erectile dysfunction N52.9
[2023-03-08 14:33] VITALS: BP 144/70; PULSE 81; RESP 16; O2SAT 94; BMI 35.4
== END 2023-03-08 14:17 | disposition home or self-care (01) ==
PROVIDERS: PCP Internal Medicine; Visit Provider Anesthesiology
DX: G89.4 Chronic pain syndrome (principal); M96.1 Postlaminectomy syndrome, not elsewhere classified; Z79.891 Long term (current) use of opiate analgesic; Z45.1 Encounter for adjustment and management of infusion pump; N52.9 Male erectile dysfunction, unspecified
CPT/HCPCS: 99024; 99499

== ENCOUNTER → 2023-03-08 13:43 | Outpatient (BNVA) | payer MEDICARE, MEDICAID, SELFPAY | PROVIDERS: PCP Internal Medicine; Visit Provider Anesthesiology | DX: M96.1 Postlaminectomy syndrome, not elsewhere classified (principal); N52.9 Male erectile dysfunction, unspecified; G89.4 Chronic pain syndrome; F11.20 Opioid dependence, uncomplicated; Z96.89 Presence of other specified functional implants | CPT/HCPCS: 99212 ==

== ENCOUNTER 2023-03-15 13:39 | Outpatient (AMB) | payer MEDICARE, MEDICAID, SELFPAY ==
--- NOTE | 2023-03-15 13:41 | MHC.OFFVIS ---
Intake Vital Signs 03/15/23 14:02 Height 5 ft 9 in Weight 239 lb BMI 35.3 BP 142/90 H Blood Pressure Location Lt brachial Position Sitting Respiration 16 Pulse 71 Pulse Source Pulse Oximeter Pulse Oximetry (%) 96 Oxygen Delivery Method Room Air Intake Visit Reasons: Medtronic Pain Pump Revision 03/02/23/PILL COUNT/lvm Intake Note: Patient comes in for pill count Morphine 15 mg tablets. Allergies onions Allergy (Severe, Uncoded 02/24/23 08:43) Vomiting HPI HPI Comments History of Present Illness Details Pacheco is today in my office after the revision of the intrathecal drug delivery system pain pump, he received this procedure 14 days ago. The dressing was removed and the sides of the surgery were washed with ChloraPrep and examined. No redness, no swelling, no pathological discharge, minimal tenderness on palpation . jia were removed, sterile dressing was applied, recommendation about personal hygiene were given ( no shower for 48 hours ) recommendation about activities were given: no heavy lifting , to bending, no torso twisting, avoid straining down, avoid constipation. The patient's pain pump was interrogated see as below. Dry dressing was applied to the areas of the surgery using sterile 4x4s and Tegaderm film. The pump was interrogated. The PTM dose was increased from 50 mcg to 75 mcg. The frequency of PTM remained 2 doses every 8 hours only 2 doses in 24 hours. The patient will visit me for pump adjustment in one week. We agreed that he will taper down his oral opioids by starting to take only 2 pills a day and eventually going into 1 pill a day and try to substitute the doses of the oral meds PRN with the PTM doses of the intrathecal medication. Riscs of combination of the IT and oral opioids was explained to the patient. Prior: He is suffering from postlaminectomy syndrome. 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 He takes Lyrica for neuropathy and this helps his feet neuropathy pain Diabetic patient. On the insulin pump. . [facility] Medical History Enterococcus faecalis infection Hypothyroid Depression HLD (hyperlipidemia) Diabetic neuropathy Type 1 diabetes mellitus Chronic, continuous use of opioids Chronic pain syndrome Fusion of lumbar spine Cubital tunnel syndrome on right Left carpal tunnel syndrome Lumbar post-laminectomy syndrome Surgical History H/O parathyroidectomy H/O exploratory laparotomy S/P lumbar fusion H/O decompression of ulnar nerve Social History Household Members: Family Household Members Other:: Son, Daughter in law, 4 grandchildren Housing: House Do you presently have visiting nurse or other home services: No Comment: back Patient Tobacco Use Status: Never used Tobacco Second Hand Smoke Exposure: No Advance Directives Date on File: 06/05/20 Review of Systems Const All systems reviewed & are unremarkable except as noted in HPI and below Neuro Denies confusion Psych Denies confusion Physical Exam Vital Signs: Last Vital Signs Pulse 71 03/15/23 14:02 Resp 16 03/15/23 14:02 BP 142/90 H 03/15/23 14:02 Pulse Ox 96 03/15/23 14:02 Oxygen Delivery Method Room Air 03/15/23 14:02 BMI result Body Mass Index 35.3 Const General: No confusion Nutritional Appearance: obese morbidly obese Orientation/consciousness: No confusion Eyes General: appearance normal, both eyes and all related structures Pupils: Equal, round and reactive pupils present EOM: EOMs intact bilaterally Neck Neck: Yes full ROM Resp Effort & Inspection: normal respiratory effort, able to speak in complete sentences, normal respiratory pattern, no audible wheezes and no cough Cardio Jugular venous distension: no JVD Neuro General: No confusion Cranial nerves: Yes Equal, round and reactive pupils present Extrem General: No pedal edema Psych Speech and movement: Normal speech and movement present Affect: normal affect Attitude: cooperative Assessment & Plan Assessment & Plan (1) Lumbar post-laminectomy syndrome: Code(s): M96.1 - Postlaminectomy syndrome, not elsewhere classified Plan: (2) Chronic pain syndrome: Code(s): G89.4 - Chronic pain syndrome Plan: (3) Chronic, continuous use of opioids: Code(s): F11.90 - Opioid use, unspecified, uncomplicated Plan: No new morphine prescription, he will taper the meds off he has 57 pills for this pupouse - see discussion above. The next appointment will be in one week for pump adjustment. (4) Implantable intrathecal infusion pump present: Code(s): Z96.89 - Presence of other specified functional implants Plan: The pain pump was interrogated : the current volume 18.6 mls. dilaudid concentration 2000 mcg continuous rate 96.1 mcg a day or 4.0 mcg per hour. PTM: The PTM dose was increased from 50 mcg to 75 mcg. The frequency of PTM remained 2 doses every 8 hours only 2 doses in 24 hours. (5) Postlaminectomy syndrome: Code(s): M96.1 - Postlaminectomy syndrome, not elsewhere classified (6) Erectile dysfunction: Code(s): N52.9 - Male erectile dysfunction, unspecified Plan Coding Level of Care Code Est Pt Level 4 (46602) Procedure Only Diagnoses Lumbar post-laminectomy syndrome M96.1 Chronic pain syndrome G89.4 Chronic, continuous use of opioids F11.90 Implantable intrathecal infusion pump present Z96.89 Postlaminectomy syndrome M96.1 Erectile dysfunction N52.9
[2023-03-15 14:02] VITALS: BP 142/90; PULSE 71; RESP 16; O2SAT 96; BMI 35.3
== END 2023-03-15 14:40 | disposition home or self-care (01) ==
PROVIDERS: PCP Internal Medicine; Visit Provider Anesthesiology
DX: G89.4 Chronic pain syndrome (principal); M96.1 Postlaminectomy syndrome, not elsewhere classified; Z79.891 Long term (current) use of opiate analgesic; Z45.1 Encounter for adjustment and management of infusion pump; N52.9 Male erectile dysfunction, unspecified
CPT/HCPCS: 62368

== ENCOUNTER → 2023-03-15 13:39 | Outpatient (BNVA) | payer MEDICARE, MEDICAID, SELFPAY | PROVIDERS: PCP Internal Medicine; Visit Provider Anesthesiology | DX: Z45.1 Encounter for adjustment and management of infusion pump (principal); G89.4 Chronic pain syndrome; M96.1 Postlaminectomy syndrome, not elsewhere classified; N52.9 Male erectile dysfunction, unspecified; Z79.891 Long term (current) use of opiate analgesic; Z98.890 Other specified postprocedural states | CPT/HCPCS: 62368 ==

== ENCOUNTER 2023-03-23 10:26 | Outpatient (AMB) | payer MEDICARE, MEDICAID, SELFPAY ==
--- NOTE | 2023-03-23 10:39 | A.OFFVIS_ITS ---
Intake Vital Signs 03/23/23 10:41 Height 5 ft 9 in Weight 239 lb BMI 35.3 BP 162/76 H Blood Pressure Location Lt brachial Position Sitting Respiration 16 Pulse 68 Pulse Source Pulse Oximeter Pulse Oximetry (%) 96 Oxygen Delivery Method Room Air Intake Visit Reasons: ITDD INTERROGATION/confirmed Intake Note: Patient comes in for pump interrogation. Reports pain 05/06. Allergies onions Allergy (Severe, Uncoded 02/24/23 08:43) Vomiting HPI HPI Comments History of Present Illness Details Pacheco is today in my office after the revision of the intrathecal drug delivery system pain pump, he received this procedure 03/02/2023. He reports significant pain relief on the doses of the opioid medications which were given to him last time through the pump. He is receiving continuous dose of hydromorphone 96.1 micro g per day, and he also receiving 75 micro g of Dilaudid on demand PTM every 8 hours twice a day. The pump was interrogated today, We changed the setting see as below. He continues to were abdominal binder. We agreed that he no longer will be taking opioid medications orally if he will get good pain relief from the pain pump. Prior: He is suffering from postlaminectomy syndrome. 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 He takes Lyrica for neuropathy and this helps his feet neuropathy pain Diabetic patient. On the insulin pump. . [facility] Medical History Enterococcus faecalis infection Hypothyroid Depression HLD (hyperlipidemia) Diabetic neuropathy Type 1 diabetes mellitus Chronic, continuous use of opioids Chronic pain syndrome Fusion of lumbar spine Cubital tunnel syndrome on right Left carpal tunnel syndrome Lumbar post-laminectomy syndrome Surgical History H/O parathyroidectomy H/O exploratory laparotomy S/P lumbar fusion H/O decompression of ulnar nerve Social History Household Members: Family Household Members Other:: Son, Daughter in law, 4 grandchildren Housing: House Do you presently have visiting nurse or other home services: No Comment: back Patient Tobacco Use Status: Never used Tobacco Second Hand Smoke Exposure: No Advance Directives Date on File: 06/05/20 Review of Systems Const All systems reviewed & are unremarkable except as noted in HPI and below Neuro Denies confusion Psych Denies confusion Physical Exam Vital Signs: Last Vital Signs Pulse 68 03/23/23 10:41 Resp 16 03/23/23 10:41 BP 162/76 H 03/23/23 10:41 Pulse Ox 96 03/23/23 10:41 Oxygen Delivery Method Room Air 03/23/23 10:41 BMI result Body Mass Index 35.3 Const General: No confusion Nutritional Appearance: obese morbidly obese Orientation/consciousness: No confusion Eyes General: appearance normal, both eyes and all related structures Pupils: Equal, round and reactive pupils present EOM: EOMs intact bilaterally Neck Neck: Yes full ROM Resp Effort & Inspection: normal respiratory effort, able to speak in complete sentences, normal respiratory pattern, no audible wheezes and no cough Cardio Jugular venous distension: no JVD Neuro General: No confusion Cranial nerves: Yes Equal, round and reactive pupils present Extrem General: No pedal edema Psych Speech and movement: Normal speech and movement present Affect: normal affect Attitude: cooperative Assessment & Plan Assessment & Plan (1) Lumbar post-laminectomy syndrome: Code(s): M96.1 - Postlaminectomy syndrome, not elsewhere classified Plan: (2) Chronic pain syndrome: Code(s): G89.4 - Chronic pain syndrome Plan: (3) Chronic, continuous use of opioids: Code(s): F11.90 - Opioid use, unspecified, uncomplicated Plan: No new morphine prescription, he will taper the meds off he has 57 pills for this pupouse - see discussion above. The next appointment will be in on 06/01/2023 for pump refill. (4) Implantable intrathecal infusion pump present: Code(s): Z96.89 - Presence of other specified functional implants Plan: The pain pump was interrogated : the current volume 17.6 mls. dilaudid concentration 2000 mcg continuous rate 96.1 mcg a day or 4.0 mcg per hour. PTM: The PTM dose was left at - 75 mcg. The frequency of PTM increase to 3 doses every 6 hours only 3 doses in 24 hours. (5) Postlaminectomy syndrome: Code(s): M96.1 - Postlaminectomy syndrome, not elsewhere classified (6) Erectile dysfunction: Code(s): N52.9 - Male erectile dysfunction, unspecified Plan Coding Level of Care Code Est Pt Level 3 (99677) Procedure Only Diagnoses Lumbar post-laminectomy syndrome M96.1 Chronic pain syndrome G89.4 Chronic, continuous use of opioids F11.90 Implantable intrathecal infusion pump present Z96.89 Postlaminectomy syndrome M96.1 Erectile dysfunction N52.9
[2023-03-23 10:41] VITALS: BP 162/76; PULSE 68; RESP 16; O2SAT 96; BMI 35.3
== END 2023-03-23 10:50 | disposition home or self-care (01) ==
PROVIDERS: PCP Internal Medicine; Visit Provider Anesthesiology
DX: M96.1 Postlaminectomy syndrome, not elsewhere classified (principal); G89.4 Chronic pain syndrome; Z79.891 Long term (current) use of opiate analgesic; Z45.1 Encounter for adjustment and management of infusion pump; Z96.89 Presence of other specified functional implants
CPT/HCPCS: 62367; 99213

== ENCOUNTER → 2023-03-23 10:26 | Outpatient (BNVA) | payer MEDICARE, MEDICAID, SELFPAY | PROVIDERS: PCP Internal Medicine; Visit Provider Anesthesiology | DX: Z45.1 Encounter for adjustment and management of infusion pump (principal); E10.42 Type 1 diabetes mellitus with diabetic polyneuropathy; M96.1 Postlaminectomy syndrome, not elsewhere classified; G89.4 Chronic pain syndrome; F11.20 Opioid dependence, uncomplicated; N52.9 Male erectile dysfunction, unspecified; Z96.41 Presence of insulin pump (external) (internal) | CPT/HCPCS: 62367; 99212 ==

== ENCOUNTER 2023-06-01 10:42 | Outpatient (AMB) | payer MEDICARE, MEDICAID, SELFPAY ==
--- NOTE | 2023-06-01 10:46 | A.OFFVIS_ITS ---
Intake Vital Signs 06/01/23 11:30 Height 5 ft 9 in Weight 239 lb 2 oz BMI 35.3 BP 138/88 Blood Pressure Location Lt brachial Position Sitting Respiration 16 Pulse 67 Pulse Source Pulse Oximeter Pulse Oximetry (%) 96 Oxygen Delivery Method Room Air Intake Visit Reasons: ITDD Refill Intake Note: Patient comes in for intrathecal medication refill. Reports pain 05/06. Allergies onions Allergy (Severe, Uncoded 02/24/23 08:43) Vomiting HPI HPI Comments History of Present Illness Details Pacheco is today in my office for intrathecal pain pump refill. Revision of the intrathecal catheter was done on 03/02/2023. He reports significant pain relief on the doses of the opioid medications which were given to him last time through the pump. He is receiving continuous dose of hydromorphone 96.1 micro g per day, and he also receiving 75 micro g of Dilaudid on demand PTM every 8 hours 3 times a day. The pump was interrogated and refilled today see as below. He reports 3-4 hours of very good pain relief after administration of the doses of the PTM. He also reports that he needs to adjust his schedule around that time when his pain is more active. He is asking me if we can increase the dose of the medication or give him 1 more dose during the daytime. I explained to him that it would be escalation of the medication. My preference would be to have him to adjust his schedule around his ability to administer next dose of the opioids instead of escalating the medication at this time. We agreed to do this however in the future he might need adjustment and give him 1 more extra dose. He is for pump refill today with 6 cc of medication extra. He has not on any oral opioid medications. Prior: He is suffering from postlaminectomy syndrome. 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 He takes Lyrica for neuropathy and this helps his feet neuropathy pain Diabetic patient. On the insulin pump to control his diabetes, his diabetes is very brittle. [facility] Medical History Enterococcus faecalis infection Hypothyroid Depression HLD (hyperlipidemia) Diabetic neuropathy Type 1 diabetes mellitus Chronic, continuous use of opioids Chronic pain syndrome Fusion of lumbar spine Cubital tunnel syndrome on right Left carpal tunnel syndrome Lumbar post-laminectomy syndrome Surgical History H/O parathyroidectomy H/O exploratory laparotomy S/P lumbar fusion H/O decompression of ulnar nerve Social History Household Members: Family Household Members Other:: Son, Daughter in law, 4 grandchildren Housing: House Do you presently have visiting nurse or other home services: No Comment: back Patient Tobacco Use Status: Never used Tobacco Second Hand Smoke Exposure: No Advance Directives Date on File: 06/05/20 Review of Systems Const All systems reviewed & are unremarkable except as noted in HPI and below Neuro Denies confusion Psych Denies confusion Physical Exam Vital Signs: Last Vital Signs Pulse 67 06/01/23 11:30 Resp 16 06/01/23 11:30 BP 138/88 06/01/23 11:30 Pulse Ox 96 06/01/23 11:30 Oxygen Delivery Method Room Air 06/01/23 11:30 BMI result Body Mass Index 35.3 Const General: No confusion Nutritional Appearance: obese morbidly obese Orientation/consciousness: No confusion Eyes General: appearance normal, both eyes and all related structures Pupils: Equal, round and reactive pupils present EOM: EOMs intact bilaterally Neck Neck: Yes full ROM Resp Effort & Inspection: normal respiratory effort, able to speak in complete sentences, normal respiratory pattern, no audible wheezes and no cough Cardio Jugular venous distension: no JVD Neuro General: No confusion Cranial nerves: Yes Equal, round and reactive pupils present Extrem General: No pedal edema Psych Speech and movement: Normal speech and movement present Affect: normal affect Attitude: cooperative Assessment & Plan Assessment & Plan (1) Lumbar post-laminectomy syndrome: Code(s): M96.1 - Postlaminectomy syndrome, not elsewhere classified Plan: (2) Chronic pain syndrome: Code(s): G89.4 - Chronic pain syndrome Plan: (3) Chronic, continuous use of opioids: Code(s): F11.90 - Opioid use, unspecified, uncomplicated Plan: No new morphine prescription, he will taper the meds off he has 57 pills for this pupouse - see discussion above. The next appointment will be in on 06/01/2023 for pump refill. (4) Implantable intrathecal infusion pump present: Code(s): Z96.89 - Presence of other specified functional implants Plan: Pump refill is as below. Next appointment will be scheduled on 08/28/2023. (5) Postlaminectomy syndrome: Code(s): M96.1 - Postlaminectomy syndrome, not elsewhere classified Plan: Intrathecal pump refill. THE PATIENT CAME TODAY IN THE OR - PACU FOR THE CHANGE OF THE MEDICATION IN her PAIN PUMP. The name and date of were verified and informed consent was ob tained for the procedure. The pump was interrogated and the residual amount of fluid was found to be 6.6 mL. He was positioned prone on the bed AND THE AREA OF THE INTRATHECAL PUMP WAS PREPPED WITH CHLORAPREP. The fenestrated drape was sterilely applied over the area of the pump. Sterile gloves were worn and of the aspiration system was assembled containing 2 in 22 gauge noncoring needle, the needle was connected to extension tubing which was connected to the 20 cc sterile syringe. The pain pump was palpated under the skin in the patient's right buttock area. The needle was inserted through the skin and the central plug of the pain pump and fluid was aspirated. The clear fluid was going into the syringe the total amount of the fluid was 6.8 mL .. After that a new batch? of medication was obtained which was containing hydromorphone/Dilaudid in concentration 2000 micro g/ml. The admixture was made in 20 cc syringe prepared by [facility] compound[facility] pharmacy. The syringe was connected to the bacterial filter, and then connected to the extension tubing. After that the medication in the syringe was slowly instilled into the pump with aspirations at 15 and 5 cc martinez.? The pump was reprogrammed for the doses of hydromorphone 96.1mcg per day . The patient was given 3 doses of PTM 75 micro g over 3 minutes with lockout interval of 6 hours , only 3 activations in 24 hours. (6) Erectile dysfunction: Code(s): N52.9 - Male erectile dysfunction, unspecified Plan Coding Level of Care Code Est Pt Level 3 (11469) Procedure Only Diagnoses Lumbar post-laminectomy syndrome M96.1 Chronic pain syndrome G89.4 Chronic, continuous use of opioids F11.90 Implantable intrathecal infusion pump present Z96.89 Postlaminectomy syndrome M96.1 Erectile dysfunction N52.9
[2023-06-01 11:30] VITALS: BP 138/88; PULSE 67; RESP 16; O2SAT 96; BMI 35.3
== END 2023-06-01 11:06 | disposition home or self-care (01) ==
PROVIDERS: PCP Internal Medicine; Visit Provider Anesthesiology
DX: M96.1 Postlaminectomy syndrome, not elsewhere classified (principal); G89.4 Chronic pain syndrome; Z79.891 Long term (current) use of opiate analgesic; Z45.1 Encounter for adjustment and management of infusion pump; Z96.89 Presence of other specified functional implants; N52.9 Male erectile dysfunction, unspecified
CPT/HCPCS: 62370; 99213

== ENCOUNTER → 2023-06-01 10:42 | Outpatient (BNVA) | payer MEDICARE, MEDICAID, SELFPAY | PROVIDERS: PCP Internal Medicine; Visit Provider Anesthesiology | DX: Z45.89 Encounter for adjustment and management of other implanted devices (principal); M96.1 Postlaminectomy syndrome, not elsewhere classified; N52.9 Male erectile dysfunction, unspecified; F11.20 Opioid dependence, uncomplicated; G89.4 Chronic pain syndrome | CPT/HCPCS: 62370; 99212 ==

== ENCOUNTER 2023-08-28 10:58 | Outpatient (AMB) | payer MEDICARE, MEDICAID, SELFPAY ==
--- NOTE | 2023-08-28 11:02 | A.OFFVIS_ITS ---
Vital Signs 08/28/23 11:16 Height 5 ft 9 in Weight 249 lb BMI 36.8 BP 152/72 H Blood Pressure Location Lt brachial Position Sitting Respiration 16 Pulse 75 Pulse Source Pulse Oximeter Pulse Oximetry (%) 95 Oxygen Delivery Method Room Air Intake Visit Reasons: ITDD REFILL Intake Note: Patient comes in for intrathecal medication refill. Reports pain 06/06. Allergies onions Allergy (Severe, Uncoded 02/24/23 08:43) Vomiting HPI Comments Details: Pacheco is today in my office for intrathecal pain pump refill. Revision of the intrathecal catheter was done on 03/02/2023. He reports significant pain relief on the doses of the opioid medications which were given to him last time through the pump. He is receiving continuous dose of hydromorphone 96.1 micro g per day, and he also receiving 75 micro g of Dilaudid on demand PTM every 8 hours 3 times a day. The pump was interrogated and refilled today see as below. He has not taking any oral opioids. He reports minimal pain syndrome. He has not on any oral opioid medications. Prior: He is suffering from postlaminectomy syndrome. 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 He takes Lyrica for neuropathy and this helps his feet neuropathy pain Diabetic patient. On the insulin pump to control his diabetes, his diabetes is very brittle. [facility] Medical History Enterococcus faecalis infection Hypothyroid Depression HLD (hyperlipidemia) Diabetic neuropathy Type 1 diabetes mellitus Chronic, continuous use of opioids Chronic pain syndrome Fusion of lumbar spine Cubital tunnel syndrome on right Left carpal tunnel syndrome Lumbar post-laminectomy syndrome Surgical History H/O parathyroidectomy H/O exploratory laparotomy S/P lumbar fusion H/O decompression of ulnar nerve Social History Household Members: Family Household Members Other:: Son, Daughter in law, 4 grandchildren Housing: House Do you presently have visiting nurse or other home services: No Comment: back Patient Tobacco Use Status: Never used Tobacco Second Hand Smoke Exposure: No Advance Directives Date on File: 06/05/20 Review of Systems Const All systems reviewed & are unremarkable except as noted in HPI and below Neuro Denies confusion Psych Denies confusion Physical Exam Vital Signs: Last Vital Signs Pulse 75 08/28/23 11:16 Resp 16 08/28/23 11:16 BP 152/72 H 08/28/23 11:16 Pulse Ox 95 08/28/23 11:16 Oxygen Delivery Method Room Air 08/28/23 11:16 BMI result Body Mass Index 36.8 Const General: No confusion Nutritional Appearance: obese morbidly obese Orientation/consciousness: No confusion Eyes General: appearance normal, both eyes and all related structures Pupils: Equal, round and reactive pupils present EOM: EOMs intact bilaterally Neck Neck: Yes full ROM Resp Effort & Inspection: normal respiratory effort, able to speak in complete sentences, normal respiratory pattern, no audible wheezes and no cough Cardio Jugular venous distension: no JVD Neuro General: No confusion Cranial nerves: Yes Equal, round and reactive pupils present Extrem General: No pedal edema Psych Speech and movement: Normal speech and movement present Affect: normal affect Attitude: cooperative Assessment & Plan Assessment & Plan (1) Lumbar post-laminectomy syndrome: Code(s): M96.1 - Postlaminectomy syndrome, not elsewhere classified Category: Medical Plan: (2) Chronic pain syndrome: Code(s): G89.4 - Chronic pain syndrome Category: Medical Plan: (3) Chronic, continuous use of opioids: Code(s): F11.90 - Opioid use, unspecified, uncomplicated Category: Medical (4) Implantable intrathecal infusion pump present: Code(s): Z96.89 - Presence of other specified functional implants Category: Medical Plan: Pump refill is as below. Next appointment will be scheduled on 08/28/2023. (5) Postlaminectomy syndrome: Code(s): M96.1 - Postlaminectomy syndrome, not elsewhere classified Category: Medical Plan: Intrathecal pump refill. THE PATIENT CAME TODAY IN THE OR - PACU FOR THE CHANGE OF THE MEDICATION IN her PAIN PUMP. The name and date of were verified and informed consent was obtained for the procedure. The pump was interrogated and the residual amount of fluid was found to be 5.7 mL. He was positioned prone on the bed AND THE AREA OF THE INTRATHECAL PUMP WAS PREPPED WITH CHLORAPREP. The fenestrated drape was sterilely applied over the area of the pump. Sterile gloves were worn and of the aspiration system was assembled containing 2 in 22 gauge noncoring needle, the needle was connected to extension tubing which was connected to the 20 cc sterile syringe. The pain pump was palpated under the skin in the patient's right buttock area. The needle was inserted through the skin and the central plug of the pain pump and fluid was aspirated. The clear fluid was going into the syringe the total amount of the fluid was 6.1 mL .. After that a new batch? of medication was obtained which was containing hydromorphone/Dilaudid in concentration 2000 micro g/ml. The admixture was made in 20 cc syringe prepared by [facility] compounding pharmacy. The syringe was connected to the bacterial filter, and then connected to the extension tubing. After that the medication in the syringe was slowly instilled into the pump with aspirations at 15 and 5 cc martinez.? The pump was reprogrammed for the doses of hydromorphone 96.1mcg per day . The patient was given 3 doses of PTM 75 micro g over 3 minutes with lockout interval of 6 hours , only 3 activations in 24 hours. (6) Erectile dysfunction: Code(s): N52.9 - Male erectile dysfunction, unspecified Category: Medical Plan Coding Level of Care Code Est Pt Level 3 (78085) Procedure Only Diagnoses Lumbar post-laminectomy syndrome M96.1 Chronic pain syndrome G89.4 Chronic, continuous use of opioids F11.90 Implantable intrathecal infusion pump present Z96.89 Postlaminectomy syndrome M96.1 Erectile dysfunction N52.9
[2023-08-28 11:16] VITALS: BP 152/72; PULSE 75; RESP 16; O2SAT 95; BMI 36.8
== END 2023-08-28 11:44 | disposition home or self-care (01) ==
PROVIDERS: PCP Internal Medicine; Visit Provider Anesthesiology
DX: M96.1 Postlaminectomy syndrome, not elsewhere classified (principal); G89.4 Chronic pain syndrome; Z79.891 Long term (current) use of opiate analgesic; Z96.89 Presence of other specified functional implants; N52.9 Male erectile dysfunction, unspecified; Z45.1 Encounter for adjustment and management of infusion pump
CPT/HCPCS: 62370; 99213

== ENCOUNTER → 2023-08-28 10:58 | Outpatient (BNVA) | payer MEDICARE, MEDICAID, SELFPAY | PROVIDERS: PCP Internal Medicine; Visit Provider Anesthesiology | DX: M96.1 Postlaminectomy syndrome, not elsewhere classified (principal); G89.4 Chronic pain syndrome; F11.90 Opioid use, unspecified, uncomplicated; N52.9 Male erectile dysfunction, unspecified; Z45.1 Encounter for adjustment and management of infusion pump | CPT/HCPCS: 62370; 99212 ==

== ENCOUNTER 2023-11-27 11:01 | Outpatient (AMB) | payer MEDICARE, MEDICAID, SELFPAY ==
--- NOTE | 2023-11-27 11:08 | MHC.OFFVIS ---
Vital Signs 11/27/23 11:34 Height 5 ft 9 in Weight 249 lb BMI 36.8 BP 158/78 H Blood Pressure Location Lt brachial Position Sitting Respiration 16 Pulse 69 Pulse Source Pulse Oximeter Pulse Oximetry (%) 97 Oxygen Delivery Method Room Air Intake Visit Reasons: PUMP REFILL Intake Note: Patient comes in for intrathecal medication refill. Reports pain 05/06. Allergies onions Allergy (Severe, Uncoded 02/24/23 08:43) Vomiting HPI Comments Details: Pacheco is today in my office for intrathecal pain pump refill. He reports that his pain is well-controlled by intrathecal pain pump. He reports good mobility good social interactions excellent activities of daily living. He actually was invited by his son to visit him in [place]. He will travel in December. His refill of the intrathecal pump is at the end of January. So we are safe on in terms of the new refills. Revision of the intrathecal catheter was done on 03/02/2023. He reports significant pain relief on the doses of the opioid medications which were given to him last time through the pump. He is receiving continuous dose of hydromorphone 96.1 micro g per day, and he also receiving 75 micro g of Dilaudid on demand PTM every 8 hours 3 times a day. The pump was interrogated and refilled today see as below. He has not taking any oral opioids. He reports minimal pain syndrome. He has not on any oral opioid medications. Prior: He is suffering from postlaminectomy syndrome. 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 He takes Lyrica for neuropathy and this helps his feet neuropathy pain Diabetic patient. On the insulin pump to control his diabetes, his diabetes is very brittle. [facility] Medical History Enterococcus faecalis infection Hypothyroid Depression HLD (hyperlipidemia) Diabetic neuropathy Type 1 diabetes mellitus Chronic, continuous use of opioids Chronic pain syndrome Fusion of lumbar spine Cubital tunnel syndrome on right Left carpal tunnel syndrome Lumbar post-laminectomy syndrome Surgical History H/O parathyroidectomy H/O exploratory laparotomy S/P lumbar fusion H/O decompression of ulnar nerve Social History Household Members: Family Household Members Other:: Son, Daughter in law, 4 grandchildren Housing: House Do you presently have visiting nurse or other home services: No Comment: back Patient Tobacco Use Status: Never used Tobacco Second Hand Smoke Exposure: No Advance Directives Date on File: 06/05/20 Review of Systems Const All systems reviewed & are unremarkable except as noted in HPI and below Neuro Denies confusion Psych Denies confusion Physical Exam Vital Signs: Last Vital Signs Pulse 69 11/27/23 11:34 Resp 16 11/27/23 11:34 BP 158/78 H 11/27/23 11:34 Pulse Ox 97 11/27/23 11:34 Oxygen Delivery Method Room Air 11/27/23 11:34 BMI result Body Mass Index 36.8 Const General: No confusion Nutritional Appearance: obese morbidly obese Orientation/consciousness: No confusion Eyes General: appearance normal, both eyes and all related structures Pupils: Equal, round and reactive pupils present EOM: EOMs intact bilaterally Neck Neck: Yes full ROM Resp Effort & Inspection: normal respiratory effort, able to speak in complete sentences, normal respiratory pattern, no audible wheezes and no cough Cardio Jugular venous distension: no JVD Neuro General: No confusion Cranial nerves: Yes Equal, round and reactive pupils present Extrem General: No pedal edema Psych Speech and movement: Normal speech and movement present Affect: normal affect Attitude: cooperative Assessment & Plan Assessment & Plan (1) Lumbar post-laminectomy syndrome: Code(s): M96.1 - Postlaminectomy syndrome, not elsewhere classified Category: Medical Plan: (2) Chronic pain syndrome: Code(s): G89.4 - Chronic pain syndrome Category: Medical Plan: (3) Chronic, continuous use of opioids: Code(s): F11.90 - Opioid use, unspecified, uncomplicated Category: Medical (4) Implantable intrathecal infusion pump present: Code(s): Z96.89 - Presence of other specified functional implants Category: Medical Plan: Pump refill is as below. Next appointment will be scheduled on 08/28/2023. (5) Postlaminectomy syndrome: Code(s): M96.1 - Postlaminectomy syndrome, not elsewhere classified Category: Medical Plan: Intrathecal pump refill. THE PATIENT CAME TODAY IN THE OR - PACU FOR THE CHANGE OF THE MEDICATION IN her PAIN PUMP. The name and date of were verified and informed consent was obtained for the procedure. The pump was interrogated and the residual amount of fluid was found to be 5.4 mL. He was positioned prone on the bed AND THE AREA OF THE INTRATHECAL PUMP WAS PREPPED WITH CHLORAPREP. The fenestrated drape was sterilely applied over the area of the pump. Sterile gloves were worn and of the aspiration system was assembled containing 2 in 22 gauge noncoring needle, the needle was connected to extension tubing which was connected to the 20 cc sterile syringe. The pain pump was palpated under the skin in the patient's right buttock area. The needle was inserted through the skin and the central plug of the pain pump and fluid was aspirated. The clear fluid was going into the syringe the total amount of the fluid was 5.8 mL .. After that a new batch? of medication was obtained which was containing hydromorphone/Dilaudid in concentration 2000 micro g/ml. The admixture was made in 20 cc syringe prepared by [facility] compounding pharmacy. The syringe was connected to the bacterial filter, and then connected to the extension tubing. After that the medication in the syringe was slowly instilled into the pump with aspirations at 15 and 5 cc martinez.? The pump was reprogrammed for the doses of hydromorphone 96.1mcg per day . The patient was given 3 doses of PTM 75 micro g over 3 minutes with lockout interval of 6 hours , only 3 activations in 24 hours. (6) Erectile dysfunction: Code(s): N52.9 - Male erectile dysfunction, unspecified Category: Medical Plan Coding Level of Care Code Est Pt Level 3 (06262) Procedure Only Diagnoses Lumbar post-laminectomy syndrome M96.1 Chronic pain syndrome G89.4 Chronic, continuous use of opioids F11.90 Implantable intrathecal infusion pump present Z96.89 Postlaminectomy syndrome M96.1 Erectile dysfunction N52.9
[2023-11-27 11:34] VITALS: BP 158/78; PULSE 69; RESP 16; O2SAT 97; BMI 36.8
== END 2023-11-27 11:32 | disposition home or self-care (01) ==
PROVIDERS: PCP Internal Medicine; Visit Provider Anesthesiology
DX: M96.1 Postlaminectomy syndrome, not elsewhere classified (principal); G89.4 Chronic pain syndrome; Z79.891 Long term (current) use of opiate analgesic; Z96.89 Presence of other specified functional implants; Z45.1 Encounter for adjustment and management of infusion pump; N52.9 Male erectile dysfunction, unspecified
CPT/HCPCS: 62370; 99213

== ENCOUNTER → 2023-11-27 11:01 | Outpatient (BNVA) | payer MEDICARE, MEDICAID, SELFPAY | PROVIDERS: PCP Internal Medicine; Visit Provider Anesthesiology | DX: M96.1 Postlaminectomy syndrome, not elsewhere classified (principal); G89.4 Chronic pain syndrome; F11.90 Opioid use, unspecified, uncomplicated; N52.9 Male erectile dysfunction, unspecified; Z45.1 Encounter for adjustment and management of infusion pump | CPT/HCPCS: 62370; 99212 ==

== ENCOUNTER 2024-02-23 09:18 | Outpatient (AMB) | payer MEDICARE, MEDICAID, SELFPAY ==
--- NOTE | 2024-02-23 09:51 | MHC.OFFVIS ---
Vital Signs 02/23/24 09:52 Height 5 ft 9 in Weight 249 lb BMI 36.8 BP 145/72 H Blood Pressure Location Lt brachial Position Sitting Respiration 16 Pulse 79 Pulse Source Pulse Oximeter Pulse Oximetry (%) 96 Oxygen Delivery Method Room Air Intake Visit Reasons: PUMP REFILL Allergies onions Allergy (Severe, Uncoded 02/23/24 09:53) Vomiting Medication List - Last Reconciled 02/23/24 by Carola Parra LPN acetaminophen (Tylenol) 650 mg PO Q6H PRN amlodipine 2.5 mg PO DAILY aspirin 81 mg PO DAILY blood sugar diagnostic As directed cephalexin 1,000 mg (2 x 500 mg) PO Q8H 16 days furosemide 20 mg PO Q OTHER DAY 30 days insulin aspart U-100 0 - 110 units subcut DAILY levothyroxine 200 mcg PO DAILY@0630 7 days metoprolol succinate ER 12.5 mg PO DAILY metoprolol tartrate 25 mg PO DAILY morphine 15 mg PO Q8H PRN 30 days pravastatin 20 mg PO DAILY pravastatin 40 mg PO DAILY pregabalin (Lyrica) 150 mg PO TID 30 days testosterone cypionate 200 mg IM Q2W tizanidine 4 mg PO Q8H HPI HPI PUMP REFILL: Details: 58-year-old male who presents today to the office for a pump refill. Denies any recent cough, cold, infection, fever or other significant changes in medical history since last office visit.? PFSH Medical History Enterococcus faecalis infection Hypothyroid Depression HLD (hyperlipidemia) Diabetic neuropathy Type 1 diabetes mellitus Chronic, continuous use of opioids Chronic pain syndrome Fusion of lumbar spine Cubital tunnel syndrome on right Left carpal tunnel syndrome Lumbar post-laminectomy syndrome Surgical History H/O parathyroidectomy H/O exploratory laparotomy S/P lumbar fusion H/O decompression of ulnar nerve Social History Household Members: Family Household Members Other:: Son, Daughter in law, 4 grandchildren Housing: House Do you presently have visiting nurse or other home services: No Comment: back Patient Tobacco Use Status: Never used Tobacco Second Hand Smoke Exposure: No Advance Directives Date on File: 06/05/20 Review of Systems Const All systems reviewed & are unremarkable except as noted in HPI and below Physical Exam Vital Signs: Last Vital Signs Pulse 79 02/23/24 09:52 Resp 16 02/23/24 09:52 BP 145/72 H 02/23/24 09:52 Pulse Ox 96 02/23/24 09:52 Oxygen Delivery Method Room Air 02/23/24 09:52 BMI result Body Mass Index 36.8 General: Appears afebrile. Alert and oriented. Mood and affect appropriate. Follows and participates in conversation appropriately. Respiratory effort is unlabored. Able to transition from sit to stand unassisted. Ambulates with bilaterally normal heel strike and toe off. Office Procedures Details: Intra-thecal Pump Refill The name and date of were verified, and informed consent was obtained for the procedure. The pump was interrogated and the residual amount of fluid was expected to be 5 mL and 7 mL was aspirated.? He was positioned prone on the bed AND THE AREA OF THE INTRATHECAL PUMP WAS PREPPED WITH CHLORAPREP. The fenestrated drape was sterilely applied over the area of the pump. Sterile gloves were worn and of the aspiration system was assembled containing 2 in 22-gauge noncoring needle, the needle was connected to extension tubing which was connected to the 20-cc sterile syringe. The pain pump was palpated under the skin in the patient's right buttock area. The needle was inserted through the skin and the central plug of the pain pump and fluid was aspirated. The clear fluid was going into the syringe the total amount of the fluid was 6 mL. After that a new batch of medication was obtained which was containing hydromorphone/Dilaudid in concentration 2000 micro g/ml.? The admixture was made in 20 cc syringe prepared by [facility] compounding pharmacy. The syringe was connected to the bacterial filter, and then connected to the extension tubing. After that the medication in the syringe was slowly instilled into the pump with aspirations at 15 and 5 cc martinez.? The pump was refilled without any changes in patient's infusion schedule.? 59651 - Refill Procedure code (CPT) selection complete Results Reviewed Results Reviewed: No imaging is available for review. Assessment & Plan Assessment & Plan (1) Implantable intrathecal infusion pump present: Code(s): Z96.89 - Presence of other specified functional implants Category: Medical Plan Patient is status post pain pump refill. Patient tolerated procedure well and was discharged home in stable condition with discharge instructions.? All questions were answered. His next refill will be due in May 2024. Scribed for Dr. Conn by Viraj Pope, front office medical assistant, on 02/23/2024. I, Dr. Conn, have personally reviewed and agree with the information entered by the scribe. Coding Level of Care Code Procedure Only Diagnoses Implantable intrathecal infusion pump present Z96.89 CPT Codes Intraethecal Drug Delivery System - CPT: 68899 - Refill ([id number])
[2024-02-23 09:52] VITALS: BP 145/72; PULSE 79; RESP 16; O2SAT 96; BMI 36.8
== END 2024-02-23 10:19 | disposition home or self-care (01) ==
PROVIDERS: PCP Internal Medicine; Visit Provider Internal Medicine
DX: Z45.1 Encounter for adjustment and management of infusion pump (principal)
CPT/HCPCS: 62370

== ENCOUNTER → 2024-02-23 09:18 | Outpatient (BNVA) | payer MEDICARE, MEDICAID, SELFPAY | PROVIDERS: PCP Internal Medicine; Visit Provider Internal Medicine | DX: Z45.1 Encounter for adjustment and management of infusion pump (principal); Z96.89 Presence of other specified functional implants | CPT/HCPCS: 62370 ==

== ENCOUNTER 2024-06-06 08:28 | Outpatient (AMB) | payer MEDICARE, MEDICAID, SELFPAY ==
[2024-06-06 08:29] VITALS: BP 193/87; PULSE 73; O2SAT 97; BMI 37.5
--- NOTE | 2024-06-06 08:29 | MHC.OFFVIS ---
Vital Signs 06/06/24 08:29 Height 5 ft 9 in Weight 254 lb BMI 37.5 BP 193/87 H Blood Pressure Location Lt brachial Position Sitting Pulse 73 Pulse Source Pulse Oximeter Pulse Oximetry (%) 97 Oxygen Delivery Method Room Air Intake Visit Reasons: ITDD Refill Allergies onions Allergy (Severe, Uncoded 06/06/24 08:30) Vomiting HPI Comments Details: Pacheco is today in my office for intrathecal pain pump refill. He reports that his pain is well-controlled by intrathecal pain pump. He reports good mobility good social interactions excellent activities of daily living. There is no discrepancy today with the pump refill see the full report as below. Revision of the intrathecal catheter was done on 03/02/2023. He reports significant pain relief on the doses of the opioid medications which were given to him last time through the pump. He is receiving continuous dose of hydromorphone 96.1 micro g per day, and he also receiving 75 micro g of Dilaudid on demand PTM every 8 hours 3 times a day. The pump was interrogated and refilled today see as below. He has not taking any oral opioids. He reports minimal pain syndrome. He has not on any oral opioid medications. Prior: He is suffering from postlaminectomy syndrome. 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 He takes Lyrica for neuropathy and this helps his feet neuropathy pain Diabetic patient. On the insulin pump to control his diabetes, his diabetes is very brittle. [facility] Medical History Enterococcus faecalis infection Hypothyroid Depression HLD (hyperlipidemia) Diabetic neuropathy Type 1 diabetes mellitus Chronic, continuous use of opioids Chronic pain syndrome Fusion of lumbar spine Cubital tunnel syndrome on right Left carpal tunnel syndrome Lumbar post-laminectomy syndrome Surgical History H/O parathyroidectomy H/O exploratory laparotomy S/P lumbar fusion H/O decompression of ulnar nerve Social History Household Members: Family Household Members Other:: Son, Daughter in law, 4 grandchildren Housing: House Do you presently have visiting nurse or other home services: No Comment: back Patient Tobacco Use Status: Never used Tobacco Second Hand Smoke Exposure: No Advance Directives Date on File: 06/05/20 Review of Systems Const All systems reviewed & are unremarkable except as noted in HPI and below Neuro Denies confusion Psych Denies confusion Physical Exam Vital Signs: Last Vital Signs Pulse 73 06/06/24 08:29 BP 193/87 H 06/06/24 08:29 Pulse Ox 97 06/06/24 08:29 Oxygen Delivery Method Room Air 06/06/24 08:29 BMI result Body Mass Index 37.5 Const General: No confusion Nutritional Appearance: obese morbidly obese Orientation/consciousness: No confusion Eyes General: appearance normal, both eyes and all related structures Pupils: Equal, round and reactive pupils present EOM: EOMs intact bilaterally Neck Neck: Yes full ROM Resp Effort & Inspection: normal respiratory effort, able to speak in complete sentences, normal respiratory pattern, no audible wheezes and no cough Cardio Jugular venous distension: no JVD Neuro General: No confusion Cranial nerves: Yes Equal, round and reactive pupils present Extrem General: No pedal edema Psych Speech and movement: Normal speech and movement present Affect: normal affect Attitude: cooperative Assessment & Plan Assessment & Plan (1) Lumbar post-laminectomy syndrome: Code(s): M96.1 - Postlaminectomy syndrome, not elsewhere classified Category: Medical Plan: (2) Chronic pain syndrome: Code(s): G89.4 - Chronic pain syndrome Category: Medical Plan: (3) Chronic, continuous use of opioids: Code(s): F11.90 - Opioid use, unspecified, uncomplicated Category: Medical (4) Implantable intrathecal infusion pump present: Code(s): Z96.89 - Presence of other specified functional implants Category: Medical Plan: Pump refill is as below. Next appointment will be scheduled on 08/28/2023. (5) Postlaminectomy syndrome: Code(s): M96.1 - Postlaminectomy syndrome, not elsewhere classified Category: Medical Plan: Intrathecal pump refill. THE PATIENT CAME TODAY IN THE OR - PACU FOR THE CHANGE OF THE MEDICATION IN her PAIN PUMP. The name and date of were verified and informed consent was obtained for the procedure. The pump was interrogated and the residual amount of fluid was found to be 3.7 mL. He was positioned prone on the bed AND THE AREA OF THE INTRATHECAL PUMP WAS PREPPED WITH CHLORAPREP. The fenestrated drape was sterilely applied over the area of the pump. Sterile gloves were worn and of the aspiration system was assembled containing 2 in 22 gauge noncoring needle, the needle was connected to extension tubing which was connected to the 20 cc sterile syringe. The pain pump was palpated under the skin in the patient's right buttock area. The needle was inserted through the skin and the central plug of the pain pump and fluid was aspirated. The clear fluid was going into the syringe the total amount of the fluid was 4.1 mL .. After that a new batch? of medication was obtained which was containing hydromorphone/Dilaudid in concentration 2000 micro g/ml. The admixture was made in 20 cc syringe prepared by [facility] compounding pharmacy. The syringe was connected to the bacterial filter, and then connected to the extension tubing. After that the medication in the syringe was slowly instilled into the pump with aspirations at 15 and 5 cc martinez.? The pump was reprogrammed for the doses of hydromorphone 96.1mcg per day . The patient was given 3 doses of PTM 75 micro g over 3 minutes with lockout interval of 6 hours , only 3 activations in 24 hours. (6) Erectile dysfunction: Code(s): N52.9 - Male erectile dysfunction, unspecified Category: Medical Plan Coding Level of Care Code Est Pt Level 3 (92456) Procedure Only Diagnoses Lumbar post-laminectomy syndrome M96.1 Chronic pain syndrome G89.4 Chronic, continuous use of opioids F11.90 Implantable intrathecal infusion pump present Z96.89 Postlaminectomy syndrome M96.1 Erectile dysfunction N52.9
--- OUTSIDE RECORDS SUMMARY | 2024-06-06 08:41 | XMS_ITS | Clinical Summary ---
Author Organization [facility] Address [address] [address] Phone Care Team Providers Care Cloth Winder Machine Operator Name Role Phone Pcp, Unknown Primary Care Provider Unavailabl e Allergies Active Allergy Reactions Criticality Noted Date Comments Onion 08/10/2023 Other Reaction(s): THROAT ITCHES,SHAW,NAUSEA Medications Medication Sig Dispensed Refills Start Date End Date Status tiZANidine (ZANAFLEX) 4 MG capsule Take by mouth. 10/18/2021 Active ACCU-CHEK GUIDE TEST STRIPS Strp strips 05/30/2023 Active amLODIPine (NORVASC) 2.5 MG tablet 08/08/2023 Active furosemide (LASIX) 20 MG tablet Take 20 mg by mouth every other day. 07/18/2023 Active HUMALOG U-100 INSULIN 100 unit/mL injection vial INJECT UP TO 100 UNITS UNDER THE SKIN DAILY VIA INSULIN PUMP Active ACCU-CHEK FASTCLIX LANCET DRUM Misc 05/30/2023 Active levothyroxine (SYNTHROID, LEVOTHROID) 200 MCG tablet TAKE 1 TABLET BY MOUTH ONCE DAILY - TAKE AN EXTRA ONE-HALF TABLET ON MONDAY Active metoprolol tartrate (LOPRESSOR) 25 MG tablet Take 1 tablet by mouth every morning. 06/10/2023 Active BD REGULAR BEVEL NEEDLES 18 gauge x 1 Ndle USE DIRECTED TO DRAW TESTOSTERONE FOR INJECTIONS EVERY 2 WEEKS 06/20/2023 Active pravastatin sodium (PRAVASTATIN ORAL) Active pravastatin (PRAVACHOL) 20 MG tablet Take by mouth. 09/28/2021 Active pregabalin (LYRICA) 150 MG capsule Take 150 mg by mouth 3 (three) times a day. 07/20/2023 Active testosterone cypionate (DEPO-TESTOTERONE) 200 mg/mL injection INJECT 0.8ML IN THE MUSCLE EVERY 2 WEEKS 07/18/2023 Active BD LUER-RAFFY SYRINGE 3 mL 21 gauge x 1 1/2 Syrg USE DIRECTED FOR TESTOSTERONE INJECTIONS EVERY 2 WEEKS 06/20/2023 Active Immunizations Name Administration Dates Next Due Influenza Trivalent w/ Preservative IM 5,03/31/2013 Tdap 08/10/2023 Social History Tobacco Use Types Packs/Day Years Used Date Smoking Tobacco: Never Assessed Education Answer Date Recorded Are you interested in more education? Not on waldemar e 01/26/2023 Are you concerned about learning? Not on file 01/26/2023 No 01/26/2023 No 01/26/2023 Digital Access Answer Date Recorded No 01/26/2023 No 01/26/2023 Reliable internet access at home? Not on file 01/26/2023 Device with a working camera? Not on file Intimate Partner Violence Answer Date R ecorded Are you denied basic needs s uch as food, clothing, or medical care? No 01/26/2023 In the past 12 months have y ou been in a relationship with a person who hurts, threatens, or tries to control you? No 01/26/2023 Are you denied basic needs s uch as food, clothing, or medical care? No 01/26/2023 In the past 12 months have y ou been in a relationship with a person who hurts, threatens, or tries to control you? No 01/26/2023 Sex and Gender Information Value Date Recorded Sex Assigned at Not on file Gender Identity Not on file Sexual Orientation Not on file Last Filed Vital Signs Vital Sign Reading Time Taken Comments Blood Pressure 149/83 08/12/2023 1:27 PM EDT Pulse 76 08/12/2023 1:27 PM EDT Temperature 36.8 ??C (98.3 ??F) 08/12/2023 1:27 PM ED T Respiratory Rate 16 08/12/2023 1:27 PM EDT Oxygen Saturation 98% 08/12/2023 1:27 PM EDT Inhaled Oxygen Concentration - - Weight 108.9 kg (240 lb) 08/12/2023 1:27 PM EDT Height 175.3 cm (5' 9 ) 08/12/2023 1:27 PM EDT Body Mass Index 35.44 08/12/2023 1:27 PM EDT Plan of Treatment Health Maintenance Due Date Last Done Comments LIPID PANEL 1963 TSH LEVEL 1963 DEPRESSION SCREENING 1975 SMOKING Hx and SMOKELESS TOBACCO SCREENING 08/23/1976 HEPATITIS B SCREENING 08/23/1981 HEPATITIS C SCREENING 08/23/1981 HIV ONE-TIME SCREENING (18-6 5 YEARS) 08/23/1981 SCREENING FOR DIABETES 08/23/1998 COLOGUARD 08/23/2008 COLONOSCOPY 08/23/2008 COLORECTAL CANCER SCREENING 08/23/2008 FIT TEST 08/23/2008 FOBT 08/23/2008 SIGMOIDOSCOPY 08/23/2008 VIRTUAL COLONOSCOPY 08/23/2008 PNEUMOCOCCAL VACCINES (50+ years) (1 of 1 - PCV) 08/23/2013 ZOSTER VACCINES (1 of 2) 08/23/2013 INFLUENZA VACCINE (#1) 2023 5, 03/31/2013 COVID-19 VACCINE ( - 2023-2 5 season) 2023 Adult Td,Tdap Booster 08/09/2033 08/10/2023 RSV VACCINE (1 - 1-dose 75+ series) 08/23/2038 HEPATITIS A VACCINES Aged Out No long er eligible based on patient's age to complete this topic HEPATITIS B VACCINES Aged Out No long er eligible based on patient's age to complete this topic HIB VACCINES Aged Out No longer eligi ble based on patient's age to complete this topic MENINGOCOCCAL VACCINES (ACWY) Aged Out No longer eligible based on patient's age to complete this topic Medical Devices Not on file Care Teams Cloth Winder Machine Operator Relationship Specialty Start Date End Date Pcp, Unknown PCP - General 01/26/23 Additional Source Comments The information contained in this document represents components of the legal health record. It is not the complete legal health record.[facility]
== END 2024-06-06 08:52 | disposition home or self-care (01) ==
LOC: HO.PMC 08:29
PROVIDERS: PCP Internal Medicine; Visit Provider Anesthesiology
DX: M96.1 Postlaminectomy syndrome, not elsewhere classified (principal); Z96.89 Presence of other specified functional implants; G89.4 Chronic pain syndrome; Z79.891 Long term (current) use of opiate analgesic; N52.9 Male erectile dysfunction, unspecified; Z45.1 Encounter for adjustment and management of infusion pump
CPT/HCPCS: 62370; 99213

== ENCOUNTER → 2024-06-06 08:28 | Outpatient (BNVA) | payer MEDICARE, MEDICAID, SELFPAY | PROVIDERS: PCP Internal Medicine; Visit Provider Anesthesiology | DX: M96.1 Postlaminectomy syndrome, not elsewhere classified (principal); G89.4 Chronic pain syndrome; F11.90 Opioid use, unspecified, uncomplicated; Z45.1 Encounter for adjustment and management of infusion pump; Z96.89 Presence of other specified functional implants; Z79.899 Other long term (current) drug therapy | CPT/HCPCS: 62370; 99212 ==

== ENCOUNTER 2024-09-12 10:48 | Outpatient (AMB) | payer MEDICARE, MEDICAID, SELFPAY ==
--- NOTE | 2024-09-12 11:02 | A.OFFVIS_ITS ---
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 He reports that his pain is becoming less controlled by his pain pump. He requests me to increase the doses of his medication. I will increase PTM dose from 75 micro g of Dilaudid to 100 micro g of Dilaudid. He still will be able to administer this doses of the medication every 6 hours however only 3 times a day. His next appointment will be scheduled in 90 days. The pump refill will be with the same concentration 2 mg of hydromorphone in 20 mL of preservative-free normal saline. Revision of the intrathecal catheter was done on 03/02/2023. He reports significant pain relief on the doses of the opioid medications which were given to him last time through the pump. He is receiving continuous dose of hydromorphone 96.1 micro g per day, and he also receiving 75 micro g of Dilaudid on demand PTM every 8 hours 3 times a day. The pump was interrogated and refilled today see as below. He has not taking any oral opioids. He reports minimal pain syndrome. He has not on any oral opioid medications. Prior: He is suffering from postlaminectomy syndrome. 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 He takes Lyrica for neuropathy and this helps his feet neuropathy pain Diabetic patient. On the insulin pump to control his diabetes, his diabetes is very brittle. [facility] Medical History Enterococcus faecalis infection Hypothyroid Depression HLD (hyperlipidemia) Diabetic neuropathy Type 1 diabetes mellitus Chronic, continuous use of opioids Chronic pain syndrome Fusion of lumbar spine Cubital tunnel syndrome on right Left carpal tunnel syndrome Lumbar post-laminectomy syndrome Surgical History H/O parathyroidectomy H/O exploratory laparotomy S/P lumbar fusion H/O decompression of ulnar nerve Social History Household Members: Family Household Members Other:: Son, Daughter in law, 4 grandchildren Housing: House Do you presently have visiting nurse or other home services: No Comment: back Patient Tobacco Use Status: Never used Tobacco Second Hand Smoke Exposure: No Advance Directives Date on File: 06/05/20 Review of Systems Const All systems reviewed & are unremarkable except as noted in HPI and below Neuro Denies confusion Psych Denies confusion Physical Exam Vital Signs: Last Vital Signs Pulse 74 09/12/24 11:05 Resp 18 09/12/24 11:05 BP 171/77 H 09/12/24 11:05 Pulse Ox 97 09/12/24 11:05 Oxygen Delivery Method Room Air 09/12/24 11:05 BMI result Body Mass Index 36.0 Const General: No confusion Nutritional Appearance: obese morbidly obese Orientation/consciousness: No confusion Eyes General: appearance normal, both eyes and all related structures Pupils: Equal, round and reactive pupils present EOM: EOMs intact bilaterally Neck Neck: Yes full ROM Resp Effort & Inspection: normal respiratory effort, able to speak in complete sentences, normal respiratory pattern, no audible wheezes and no cough Cardio Jugular venous distension: no JVD Neuro General: No confusion Cranial nerves: Yes Equal, round and reactive pupils present Extrem General: No pedal edema Psych Speech and movement: Normal speech and movement present Affect: normal affect Attitude: cooperative Assessment & Plan Assessment & Plan (1) Lumbar post-laminectomy syndrome: Code(s): M96.1 - Postlaminectomy syndrome, not elsewhere classified Category: Medical Plan: (2) Chronic pain syndrome: Code(s): G89.4 - Chronic pain syndrome Category: Medical Plan: (3) Chronic, continuous use of opioids: Code(s): F11.90 - Opioid use, unspecified, uncomplicated Category: Medical (4) Implantable intrathecal infusion pump present: Code(s): Z96.89 - Presence of other specified functional implants Category: Medical Plan: Pump refill is as below. Next appointment will be scheduled on 12/11/2024. Intrathecal pain pump doses were slightly increased. (5) Postlaminectomy syndrome: Code(s): M96.1 - Postlaminectomy syndrome, not elsewhere classified Category: Medical Plan: Intrathecal pump refill. THE PATIENT CAME TODAY IN THE OR - PACU FOR THE CHANGE OF THE MEDICATION IN her PAIN PUMP. The name and date of were verified and informed consent was obtained for the procedure. The pump was interrogated and the residual amount of fluid was found to be 4,2 mL. He was positioned prone on the bed AND THE AREA OF THE INTRATHECAL PUMP WAS PREPPED WITH CHLORAPREP. The fenestrated drape was sterilely applied over the area of the pump. Sterile gloves were worn and of the aspiration system was assembled containing 2 in 22 gauge noncoring needle, the needle was connected to extension tubing which was connected to the 20 cc sterile syringe. The pain pump was palpated under the skin in the patient's right buttock area. The needle was inserted through the skin and the central plug of the pain pump and fluid was aspirated. The clear fluid was going into the syringe the total amount of the fluid was 4.9mL .. After that a new batch? of medication was obtained which was containing hydromorphone/Dilaudid in concentration 2000 micro g/ml. The admixture was made in 20 cc syringe prepared by [facility] compounding pharmacy. The syringe was connected to the bacterial filter, and then connected to the extension tubing. After that the medication in the syringe was slowly instilled into the pump with aspirations at 15 and 5 cc martinez.? The pump was reprogrammed for the doses of hydromorphone 96.1mcg per day . The patient was given 3 doses of PTM 100 micro g over 3 minutes with lockout interval of 6 hours , only 3 acti vations in 24 hours. (6) Erectile dysfunction: Code(s): N52.9 - Male erectile dysfunction, unspecified Category: Medical Plan Coding Level of Care Code Est Pt Level 3 (15955) Procedure Only Diagnoses Lumbar post-laminectomy syndrome M96.1 Chronic pain syndrome G89.4 Chronic, continuous use of opioids F11.90 Implantable intrathecal infusion pump present Z96.89 Postlaminectomy syndrome M96.1 Erectile dysfunction N52.9
[2024-09-12 11:05] VITALS: BP 171/77; PULSE 74; RESP 18; O2SAT 97; BMI 36.0
--- OUTSIDE RECORDS SUMMARY | 2024-09-12 11:29 | XMS_ITS | Clinical Summary ---
Author Organization [address] Address [address] [place] [address] Phone Care Team Providers Care Agricultural Adviser Name Role Phone Wilian Donohue MD Primary Care Provider [phone] Encounters Date Type Department Care Team Description 07/18/2024 Lab Requisition [facility] - Main Lab [address] [facility] [place] [address] Nelson Olivia MD Testicular hypofunction from Last 3 Months Social History Tobacco Use Types Packs/Day Years Used Date Smoking Tobacco: Never Assessed Sex and Gender Information Value Date Recorded Sex Assigned at Not on file Legal Sex Male 6:45 PM EST Gender Identity Not on file Sexual Orientation Not on file Plan of Treatment Health Maintenance Due Date Last Done Comments DTaP,Tdap,and Td Vaccines (1 - Tdap) 08/23/1982 Pneumococcal Vaccine: 50+ Ye ars (1 of 1 - PCV) 08/23/2013 Zoster Vaccines (1 of 2) 08/23/2013 COVID-19 Vaccine (1 - 2023-2 5 season) 2023 Cholesterol Screening (Lipid Panel) 07/19/2024 Colorectal Cancer Screening: Colonoscopy 07/19/2024 Depression Screening 07/19/2024 HIV Screening 07/19/2024 Hepatitis C Screening 07/19/2024 Medicare Annual Wellness Visit 07/19/2024 Social Influencers of Health Screening 07/19/2024 Influenza Vaccine (#1) 2024 RSV Immunization Adult Patie nts (1 - 1-dose 75+ series) 08/23/2038 HIB Vaccines Aged Out No longer eligi ble based on patient's age to complete this topic HPV Vaccines Aged Out No longer eligi ble based on patient's age to complete this topic Hepatitis A Vaccines Aged Out No long er eligible based on patient's age to complete this topic Hepatitis B Vaccines Aged Out No long er eligible based on patient's age to complete this topic IPV Vaccines Aged Out No longer eligi ble based on patient's age to complete this topic MMR Vaccines Aged Out No longer eligi ble based on patient's age to complete this topic Meningococcal ACWY Vaccine Aged Out N o longer eligible based on patient's age to complete this topic Meningococcal B Vaccine Aged Out No l onger eligible based on patient's age to complete this topic Pneumococcal Vaccine: Pediat rics (0 to 5 Years) and At-Risk Patients (6 to 49 Years) Aged Out No longer eligible b ased on patient's age to complete this topic RSV Immunization Patients Un jacob 20 months Aged Out No longer eligible b ased on patient's age to complete this topic Varicella Vaccines Aged Out No longer eligible based on patient's age to complete this topic Procedures Procedure Name Priority Date/Time Associated Diagnosis Comments COMPLETE BLOOD COUNT Routine 07/18/2024 8:26 AM EDT Testicular hypofunction from Last 3 Months Results * (ABNORMAL) Complete blood count (07/18/2024 8:26 AM EDT) WBC 6.7 4.8 - 10.8 K/mcL LAB HEMETOLOGY METHOD 07/18/2024 1:06 PM [facility] RBC 4.70 4.50 - 5.50 M/mcL LAB HEMETOLOGY METHOD 07/18/2024 1:06 PM [facility] Hemoglobin 14.3 13.5 - 17.5 g/dL LAB HEMETOLOGY METHOD 07/18/2024 1:06 PM [facility] Hematocrit 41.3(L) 42.0 - 54.0 % LAB HEMETOLOGY METHOD 07/18/2024 1:06 PM [facility] MCV 88.4 79.0 - 98.0 FL LAB HEMETOLOGY METHOD 07/18/2024 1:06 PM [facility] MCH 30.6 27.0 - 32.0 pcg LAB HEMETOLOGY METHOD 07/18/2024 1:06 PM EDT [facility] MCHC 34.6 32.0 - 37.0 g/dL LAB HEMETOLOGY METHOD 07/18/2024 1:06 PM EDT [facility] RDW 12.1 11.0 - 15.0 % LAB HEMETOLOGY METHOD 07/18/2024 1:06 PM EDT [facility] Platelets 155 130 - 400 K/mcL LAB HEMETOLOGY METHOD 07/18/2024 1:06 PM EDT [facility] MPV 9.7 7.0 - 11.0 FL LAB HEMETOLOGY METHOD 07/18/2024 1:06 PM EDT [facility] NRBC 0.0 <1.0 % LAB HEMETOLOGY METHOD 07/18/2024 1:06 PM EDT [facility] NRBC Absolute 0.00 <0.10 K/mcL LAB HEMETOLOGY METHOD 07/18/2024 1:06 PM EDT [facility] Blood Venous blood specimen / Unknown 07/18/2024 8:26 AM EDT 07/18/2024 12:47 PM EDT us Nelson Olivia MD LAB BLOOD ORDERABLES Final Result [facility] [address] [place] [address], from Last 3 Months Insurance MEDICARE MEDICAID - [place] Care Teams Agricultural Adviser Relationship Specialty Start Date End Date Wilian Donohue MD [address] [place] [address] [address] [place] [address] PCP - General Internal Medicine 07/18/24
== END 2024-09-12 11:44 | disposition home or self-care (01) ==
LOC: HO.PMC 10:49
PROVIDERS: PCP Internal Medicine; Visit Provider Anesthesiology
DX: M96.1 Postlaminectomy syndrome, not elsewhere classified (principal); G89.4 Chronic pain syndrome; Z79.891 Long term (current) use of opiate analgesic; Z45.1 Encounter for adjustment and management of infusion pump; N52.9 Male erectile dysfunction, unspecified
CPT/HCPCS: 62370; 99213

== ENCOUNTER 2024-09-12 10:48 | Outpatient (REF) | payer MEDICARE, MEDICAID, SELFPAY ==
[2024-09-12 13:38] LABS: Anion Gap 12 (12-20); Blood Urea Nitrogen 31 mg/dL (9-16); Calcium 8.9 mg/dL (8.4-10.2); Carbon Dioxide 25 mmol/L (22-29); Chloride 107 mmol/L (96-108); Estimated Glomerular Filt Rate > 60; Potassium 4.1 mmol/L (3.3-5.1); Sodium 140 mmol/L (135-145)
== END 2024-09-12 10:49 | disposition home or self-care (01) ==
LOC: HO.LAB 10:48
PROVIDERS: PCP Internal Medicine; Visit Provider Anesthesiology
DX: G89.4 Chronic pain syndrome (principal); Z96.89 Presence of other specified functional implants; M96.1 Postlaminectomy syndrome, not elsewhere classified; F11.90 Opioid use, unspecified, uncomplicated
CPT/HCPCS: 36415; 62370; 80048; 99212

== ENCOUNTER 2024-12-12 09:05 | Outpatient (AMB) | payer MEDICARE, MEDICAID, SELFPAY ==
--- NOTE | 2024-12-12 09:07 | A.OFFVIS_ITS ---
Vital Signs 12/12/24 09:19 Height 5 ft 9 in Weight 244 lb BMI 36.0 Intake Visit Reasons: ITDD Refill Belt Conveyor Drier Required: No Accompanied by: Self / Same As Patient Allergies onions Allergy (Mild, Uncoded 12/12/24 09:17) Vomiting HPI Comments Details: Pacheco is today in my office for intrathecal pain pump refill. He reports that his pain is very well controlled by his pain pump after slight increase of the dose last time. He currently receives 100 micro g of Dilaudid a day 3 times a day. He reported that he ran out of the diuretic medication I used to prescribe for him. Now his blood pressure is better controlled. I asked him that if he experiences legs edema. He answered no. Therefore I would leave the issue of diuretics we decided by his irrigator overhead who manages his blood pressure. Revision of the intrathecal catheter was done on 03/02/2023. He reports significant pain relief on the doses of the opioid medications which were given to him last time through the pump. He is receiving continuous dose of hydromorphone 96.1 micro g per day, and he also receiving 75 micro g of Dilaudid on demand PTM every 8 hours 3 times a day. The pump was interrogated and refilled today see as below. He has not taking any oral opioids. He reports minimal pain syndrome. He has not on any oral opioid medications. Prior: He is suffering from postlaminectomy syndrome. 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 He takes Lyrica for neuropathy and this helps his feet neuropathy pain Diabetic patient. On the insulin pump to control his diabetes, his diabetes is very brittle. [facility] Medical History Enterococcus faecalis infection Hypothyroid Depression HLD (hyperlipidemia) Diabetic neuropathy Type 1 diabetes mellitus Chronic, continuous use of opioids Chronic pain syndrome Fusion of lumbar spine Cubital tunnel syndrome on right Left carpal tunnel syndrome Lumbar post-laminectomy syndrome Surgical History H/O parathyroidectomy H/O exploratory laparotomy S/P lumbar fusion H/O decompression of ulnar nerve Social History Household Members: Family Household Members Other:: Son, Daughter in law, 4 grandchildren Housing: House Do you presently have visiting nurse or other home services: No Comment: back Patient Tobacco Use Status: Never used Tobacco Second Hand Smoke Exposure: No Advance Directives Date on File: 06/05/20 Review of Systems Const All systems reviewed & are unremarkable except as noted in HPI and below Neuro Denies confusion Psych Denies confusion Physical Exam Vital Signs: BMI result Body Mass Index 36.0 Const General: No confusion Nutritional Appearance: obese morbidly obese Orientation/consciousness: No confusion Eyes General: appearance normal, both eyes and all related structures Pupils: Equal, round and reactive pupils present EOM: EOMs intact bilaterally Neck Neck: Yes full ROM Resp Effort & Inspection: normal respiratory effort, able to speak in complete sentences, normal respiratory pattern, no audible wheezes and no cough Cardio Jugular venous distension: no JVD Neuro General: No confusion Cranial nerves: Yes Equal, round and reactive pupils present Extrem General: No pedal edema Psych Speech and movement: Normal speech and movement present Affect: normal affect Attitude: cooperative Assessment & Plan Assessment & Plan (1) Lumbar post-laminectomy syndrome: Code(s): M96.1 - Postlaminectomy syndrome, not elsewhere classified Category: Medical Plan: (2) Chronic pain syndrome: Code(s): G89.4 - Chronic pain syndrome Category: Medical Plan: (3) Chronic, continuous use of opioids: Code(s): F11.90 - Opioid use, unspecified, uncomplicated Category: Medical (4) Implantable intrathecal infusion pump present: Code(s): Z96.89 - Presence of other specified functional implants Category: Medical Plan: Pump refill is as below. Next appointment will be scheduled on 12/11/2024. Intrathecal pain pump doses were slightly increased. (5) Postlaminectomy syndrome: Code(s): M96.1 - Postlaminectomy syndrome, not elsewhere classified Category: Medical Plan: Intrathecal pump refill. THE PATIENT CAME TODAY IN THE office FOR THE CHANGE OF THE MEDICATION IN her PAIN PUMP. The name and date of were verified and informed consent was obtained for the procedure. The pump was interrogated and the residual amount of fluid was found to be 4,2 mL. He was positioned prone on the bed AND THE AREA OF THE INTRATHECAL PUMP WAS PREPPED WITH CHLORAPREP. The fenestrated drape was sterilely applied over the area of the pump. Sterile gloves were worn and of the aspiration system was assembled containing 2 in 22 gauge noncoring needle, the needle was connected to extension tubing which was connected to the 20 cc sterile syringe. The pain pump was palpated under the skin in the patient's right buttock area. The needle was inserted through the skin and the central plug of the pain pump and fluid was aspirated. The clear fluid was going into the syringe the total amount of the fluid was 4.9mL .. After that a new batch? of medication was obtained which was containing hydromorphone/Dilaudid in concentration 2000 micro g/ml. The admixture was made in 20 cc syringe prepared by [facility] compounding pharmacy. The syringe was connected to the bacterial filter, and then connected to the extension tubing. After that the medication in the syringe was slowly instilled into the pump with aspirations at 15 and 5 cc martinez.? The pump was reprogrammed for the doses of hydromorphone 96.1mcg per day . The patient was given 3 doses of PTM 100 micro g over 3 minutes with lockout interval of 6 hours , only 3 activations in 24 hours. Plan Next appointment will be scheduled in 90 days on 03/12/2025. The concentration of the hydromorphone should stay the same 2 milligrams/mL in 20 mL of preservative-free normal saline.. Coding Level of Care Code Est Pt Level 3 (38495) Procedure Only Diagnoses Lumbar post-laminectomy syndrome M96.1 Chronic pain syndrome G89.4 Chronic, continuous use of opioids F11.90 Implantable intrathecal infusion pump present Z96.89 Postlaminectomy syndrome M96.1
[2024-12-12 09:19] VITALS: BMI 36.0
--- OUTSIDE RECORDS SUMMARY | 2024-12-12 10:09 | XMS_ITS | Clinical Summary ---
Author Organization [address] Address [address] [place] [phone] Phone Care Team Providers Care Leadership Intern Name Role Phone Wilian Donohue MD Primary Care Provider [phone] Social History Tobacco Use Types Packs/Day Years Used Date Smoking Tobacco: Never Assessed Sex and Gender Information Value Date Recorded Sex Assigned at Not on file Legal Sex Male 6:45 PM EST Gender Identity Not on file Sexual Orientation Not on file Plan of Treatment Health Maintenance Due Date Last Done Comments Colorectal Cancer Screening: Colonoscopy 1963 DTaP,Tdap,and Td Vaccines (1 - Tdap) 08/23/1982 Pneumococcal Vaccine: 50+ Ye ars (1 of 1 - PCV) 08/23/2013 Zoster Vaccines (1 of 2) 08/23/2013 Depression Screening 02/28/2024 Cholesterol Screening (Lipid Panel) 07/19/2024 HIV Screening 07/19/2024 Hepatitis C Screening 07/19/2024 Medicare Annual Wellness Visit 07/19/2024 Social Influencers of Health Screening 07/19/2024 COVID-19 Vaccine ( - 2023-2 5 season) 2024 Influenza Vaccine (#1) 2024 RSV Immunization Adult [...] on patient's age to complete this topic Insurance MEDICARE [place]ICA[place] - [place] Care Teams Leadership Intern Relationship Specialty Start Date End Date Wilian Donohue MD [address] [facility] [address] [place] [address] PCP - General Internal Medicine 07/18/24
--- OUTSIDE RECORDS SUMMARY | 2024-12-12 10:10 | XMS_ITS | Clinical Summary ---
Author Organization [facility] Address [address] [address] Phone Care Team Providers Care Director Biology Name Role Phone Pcp, Unknown Primary Care Provider Unavailabl e Allergies Active Allergy Reactions Criticality Noted Date Comments Onion 08/10/2023 Other Reaction(s): THROAT ITCHES,SHAW,NAUSEA Medications tiZANidine (ZANAFLEX) 4 MG capsule Take by mouth. 2 Active ACCU-CHEK GUIDE TEST STRIPS Strp strips 4 Active amLODIPine (NORVASC) 2.5 MG tablet 4 Active furosemide (LASIX) 20 MG tablet Take 20 mg by mouth every other day. 4 Active HUMALOG U-100 INSULIN 100 unit/mL injection vial INJECT UP TO 100 UNITS UNDER THE SKIN DAILY VIA INSULIN PUMP Active ACCU-CHEK FASTCLIX LANCET DRUM Misc 4 Active levothyroxine (SYNTHROID, LEVOTHROID) 200 MCG tablet TAKE 1 TABLET BY MOUTH ONCE DAILY - TAKE AN EXTRA ONE-HALF TABLET ON MONDAY Active metoprolol tartrate (LOPRESSOR) 25 MG tablet Take 1 tablet by mouth every morning. 4 Active BD REGULAR BEVEL NEEDLES 18 gauge x 1 Ndle USE DIRECTED TO DRAW TESTOSTERONE FOR INJECTIONS EVERY 2 WEEKS 4 Active pravastatin sodium (PRAVASTATIN ORAL) Active pravastatin (PRAVACHOL) 20 MG tablet Take by mouth. 2 Active pregabalin (LYRICA) 150 MG capsule Take 150 mg by mouth 3 (three) times a day. 4 Active testosterone cypionate (DEPO-TESTOTERO NE) 200 mg/mL injection INJECT 0.8ML IN THE MUSCLE EVERY 2 WEEKS 4 Active BD LUER-RAFFY SYRINGE 3 mL 21 gauge x 1 1/2 Syrg USE DIRECTED FOR TESTOSTERONE INJECTIONS EVERY 2 WEEKS Active Immunizations Immunization Administration Dates Next Due INFLUENZA, SPLIT VIRUS, TRIVALENT W/ PRESERVATIV E IM 12/11/2014,03/31/2013 Tdap 08/10/2023 Social History Tobacco Use Types [...] at Not on file Legal Sex Male 9:43 PM EDT Gender Identity Not on file Sexual Orientation Not on file Last Filed Vital Signs Vital Sign Reading Time Taken Comments Blood Pressure 149/83 08/12/2023 1:27 PM EDT Pulse 76 08/12/2023 1:27 PM EDT Temperature 36.8 C (98.3 F) 08/12/2023 1:27 PM EDT Respiratory Rate 16 08/12/2023 1:27 PM EDT [...] Hx and SMOKELESS TOBACCO SCREENING 08/23/1976 HEPATITIS C SCREENING 08/23/1981 HIV ONE-TIME SCREENING (18-6 5 YEARS) 08/23/1981 SCREENING FOR DIABETES 08/23/1998 COLOGUARD 08/23/2008 COLONOSCOPY 08/23/2008 COLORECTAL CANCER SCREENING 08/23/2008 FIT TEST 08/23/2008 FOBT 08/23/2008 SIGMOIDOSCOPY 08/23/2008 VIRTUAL COLONOSCOPY 08/23/2008 PNEUMOCOCCAL VACCINES (50+ years) (1 of 1 - PCV) 08/23/2013 ZOSTER VACCINES (1 of 2) 08/23/2013 INFLUENZA VACCINE (#1) 2024 5, 03/31/2013 COVID-19 VACCINE (1 - 2024-2 6 season) 2024 Adult Td,Tdap Booster 08/09/2033 08/10/2023 RSV VACCINE [...] age to complete this topic MENINGOCOCCAL VACCINES (B) Aged Out N o longer eligible based on patient's age to complete this topic Medical Devices Not on file Insurance [facility] MEDICARE PART A & [place] & B [facility] MEDICARE PART A & B Member Subscriber Plan / Payer (Ef fective 2001-Present) Name:Pacheco Gibson Member ID:[id number] Relation to Subscriber:Self Name:Pacheco Gibson Subscriber ID:[id number] Payer ID:[id number] Group ID:Not on file Type:Medicare Address: [facility] [facility] [employer] [facility] [address] [place] [address] Care Teams Director Biology Relationship Specialty Start Date End Date Pcp, Unknown PCP - General 01/26/23 Additional Source Comments The information contained in this document represents components of the legal health record. It is not the complete legal health record.[facility]
--- OUTSIDE RECORDS SUMMARY | 2024-12-12 10:10 | XMS_ITS | Encounter Summary ---
Author Organization [facility] Address [address] [place] [address] Care Team Providers Care Commercial Energy Rater Name Role Phone Wilian Donohue MD Primary Care Provider [phone] Encounter Details Date Type Department Care Team (Late st Contact Info) Description 07/18/2024 Lab Requisition [facility] - Main Lab [address] [facility] [place] [address] Nelson Olivia MD [address] [facility] [address] [place] [address] Testicular hypofunction Social History Tobacco Use Types Packs/Day Years Used Date Smoking Tobacco: Never Assessed Sex and Gender Information Value Date Recorded Sex Assigned at Not on file Legal Sex Male 6:45 PM EST Gender Identity Not on file Sexual Orientation Not on file documented as of this encounter Plan of Treatment Not on file documented as of this encounter Procedures Procedure Name Priority Date/Time Associated Diagnosis Comments COMPLETE BLOOD COUNT Routine 07/18/2024 8:26 AM EDT Testicular hypofunction documented in this encounter Results * (ABNORMAL) Complete blood count (07/18/2024 8:26 AM EDT) WBC 6.7 4.8 - 10.8 K/mcL LAB HEMETOLOGY METHOD 07/18/2024 1:06 PM EDT [facility] RBC 4.70 4.50 - 5.50 M/mcL LAB HEMETOLOGY METHOD 07/18/2024 1:06 PM EDT [facility] Hemoglobin 14.3 13.5 - 17.5 g/dL LAB HEMETOLOGY METHOD 07/18/2024 1:06 PM EDT [facility] Hematocrit 41.3(L) 42.0 - 54.0 % LAB HEMETOLOGY METHOD 07/18/2024 1:06 PM EDT [facility] MCV 88.4 79.0 - 98.0 FL LAB HEMETOLOGY METHOD 07/18/2024 1:06 PM EDT [facility] MCH 30.6 27.0 - 32.0 pcg LAB HEMETOLOGY METHOD 07/18/2024 1:06 PM EDT [facility] MCHC 34.6 32.0 - 37.0 g/dL LAB HEMETOLOGY METHOD 07/18/2024 1:06 PM [facility] RDW 12.1 11.0 - 15.0 % LAB HEMETOLOGY METHOD 07/18/2024 1:06 PM [facility] Platelets 155 130 - 400 K/mcL LAB HEMETOLOGY METHOD 07/18/2024 1:06 PM EDT [facility] MPV 9.7 7.0 - 11.0 FL LAB HEMETOLOGY METHOD 07/18/2024 1:06 PM [facility] NRBC 0.0 <1.0 % LAB HEMETOLOGY METHOD 07/18/2024 1:06 PM EDT [facility] NRBC Absolute 0.00 <0.10 K/mcL LAB HEMETOLOGY METHOD 07/18/2024 1:06 PM [facility] Blood Venous blood specimen / Unknown 07/18/2024 8:26 AM EDT 07/18/2024 12:47 PM EDT us Nelson Olivia MD LAB BLOOD ORDERABLES Final Result [facility] [address] [place], [place] [address] [phone] documented in this encounter Visit Diagnoses Diagnosis Testicular hypofunction Other testicular hypofunction documented in this encounter Care Teams Commercial Energy Rater Relationship Specialty Start Date End Date Wilian Donohue MD [address] [facility] [address] [place] [address] PCP - General Internal Medicine 07/18/24 documented as of this encounter
== END 2024-12-12 09:35 | disposition home or self-care (01) ==
LOC: HO.PMC 09:05
PROVIDERS: PCP Internal Medicine; Visit Provider Anesthesiology
DX: M96.1 Postlaminectomy syndrome, not elsewhere classified (principal); G89.4 Chronic pain syndrome; Z79.891 Long term (current) use of opiate analgesic; Z96.89 Presence of other specified functional implants; Z45.1 Encounter for adjustment and management of infusion pump
CPT/HCPCS: 95991; 99213

== ENCOUNTER → 2024-12-12 09:05 | Outpatient (BNVA) | payer MEDICARE, MEDICAID, SELFPAY | PROVIDERS: PCP Internal Medicine; Visit Provider Anesthesiology | DX: Z45.1 Encounter for adjustment and management of infusion pump (principal); F11.90 Opioid use, unspecified, uncomplicated; Z96.1 Presence of intraocular lens; G89.4 Chronic pain syndrome; E10.40 Type 1 diabetes mellitus with diabetic neuropathy, unspecified | CPT/HCPCS: 95991; 99212 ==